=== PATIENT | male | born 1970 | race Caucasian/White ===

== ENCOUNTER 2018-06-02 19:50 | Inpatient (IN) | payer OTHER, MEDICAID ==
[~2018-06-02] VITALS: Ht 172.7 cm; Wt 85.4 kg
[2018-06-02] MEDS ORDERED: SODIUM CHLORIDE 0.9% 1000ML BAG (SEPSIS BOLUS) IV ONE (20:15)
[2018-06-02] MEDS ORDERED: IBUPROFEN 400MG TABLET PO ONE (20:15)
[2018-06-02] MEDS ORDERED: LORAZEPAM 2MG/ML CPJ IV ONE (20:15)
[2018-06-02 21:11] LABS: CHLORIDE 98 mEq/L (98-107); INR 2.1
[2018-06-02 21:14] LABS: ETHANOL BLOOD 67 mg/dL
[2018-06-02 21:19] LABS: BASOPHILS % 0.3 % (0.0-2.0); EOSINOPHILS % 0.3 % (0.0-5.0); HEMATOCRIT. 35.3 % (42.0-52.0); HEMOGLOBIN. 12.2 g/dL (14.0-18.0); LYMPHOCYTES % 3.2 % (20.0-50.0); MEAN CORPUSCULAR HEMOGLOBIN 35.8 pg (28.0-32.0); MEAN CORPUSCULAR VOLUME 103.2 fL (80.0-94.0); MEAN PLATELET VOLUME 8.8 fl (7.4-10.4); NEUTROPHILS % 88.2 % (40.0-76.0); RED BLOOD CELL COUNT 3.42 mill/uL (4.7-6.1); RED CELL DISTRIBUTION WIDTH 16.2 % (11.6-14.6)
[2018-06-02 21:26] LABS: PLATELET 13 x1000/uL (130-400)
[2018-06-02] MEDS ORDERED: VANCOMYCIN 1 G PREMIX 200 ML IV NR (21:30)
[2018-06-02] MEDS ORDERED: LEVOFLOXACIN 750MG PREMIX 150 ML IV NR (21:30)
[2018-06-02] MEDS ORDERED: PIPERACILLIN/TAZ 3.375G PREMIX 50 ML IV NR (21:30)
[2018-06-02] MEDS ORDERED: PANTOPRAZOLE SODIUM 40 MG/VIAL IV ONE (21:45)
[2018-06-02] MEDS ORDERED: PANTOPRAZOLE 80 MG in SODIUM CHLORIDE 0.9% 100 ML IV SCH (21:45)
[2018-06-02] MEDS ORDERED: SODIUM CHLORIDE 0.9% 1,000 ML IV ONE (21:53)
[2018-06-02] MEDS ORDERED: OCTREOTIDE 1,000 MCG in SODIUM CHLORIDE 0.9% 98 ML IV NR ×4 (22:15)
[2018-06-02] MEDS ORDERED: OCTREOTIDE ACETATE 50 MCG/ML 1ML SUBCUT NR (22:15)
[2018-06-02 23:00] LABS: CLARITY URINE TURBID (CLEAR); COLOR URINE DARK YELLOW (YELLOW); KETONES URINE NEGATIVE (NEGATIVE); LEUKOCYTE ESTERASE URINE 1+ (NEGATIVE); NITRITE URINE POSITIVE (NEGATIVE); OCCULT BLOOD URINE 3+ (NEGATIVE); PH URINE 5.5 (4.5-8.0); PROTEIN URINE 3+ (NEGATIVE); SPECIFIC GRAVITY URINE 1.026 (1.005-1.030)
[2018-06-02] MEDS: PANTOPRAZOLE 80 MG in SODIUM CHLORIDE 0.9% 100 ML IV NR (23:00)
[2018-06-03] VITALS (42 sets, daily range): BP systolic 81–163; BP diastolic 49–114
[2018-06-03] MEDS ORDERED: ONDANSETRON HCL 4MG/2ML INJ IV PRN
[2018-06-03] MEDS ORDERED: PIPERACILLIN/TAZ 3.375G PREMIX 50 ML IV SCH
[2018-06-03] MEDS ORDERED: MAGNESIUM/ALUMINUM HYDROXIDE/SIMETHICONE 30ML UDC PO PRN
[2018-06-03] MEDS ORDERED: CLONIDINE 0.1MG TABLET PO PRN
[2018-06-03 01:19] LABS: AMMONIA 19 uMol/L (<32)
[2018-06-03] MEDS: LORAZEPAM 2MG/ML CPJ IV PRN ×4 (01:39→21:00)
[2018-06-03] MEDS: SODIUM CHLORIDE 0.9% 1,000 ML IV SCH ×2 (01:56→22:56)
[2018-06-03] MEDS ORDERED: PHYTONADIONE 10 MG in DEXTROSE 5% WATER 50 ML IV NR (02:30)
[2018-06-03] MEDS ORDERED: MVI, ADULT NO.1 10 ML, FOLIC ACID 1 MG, THIAMINE HCL 100 MG in SODIUM CHLORIDE 0.9% 1,0... IV SCH ×4 (03:00)
[2018-06-03] MEDS: VANCOMYCIN 1 G PREMIX 200 ML IV SCH ×3 (05:39→20:51)
[2018-06-03] MEDS: PIPERACILLIN/TAZ 3.375G PREMIX 50 ML IV SCH ×3 (05:40→22:56)
[2018-06-03 05:44] LABS: HEMATOCRIT. 34.5 % (42.0-52.0); HEMOGLOBIN. 11.7 g/dL (14.0-18.0); MEAN CORPUSCULAR HEMOGLOBIN 35.3 pg (28.0-32.0); MEAN PLATELET VOLUME 9.7 fl (7.4-10.4); RED BLOOD CELL COUNT 3.31 mill/uL (4.7-6.1); RED CELL DISTRIBUTION WIDTH 16.7 % (11.6-14.6)
[2018-06-03 05:52] LABS: PLATELET 8 x1000/uL (130-400)
[2018-06-03 05:53] LABS: CHLORIDE 103 mEq/L (98-107)
[2018-06-03 06:08] LABS: LDL CHOLESTEROL 43 mg/dL (5-100)
[2018-06-03 06:10] LABS: HDL CHOLESTEROL 11 mg/dL (40-59)
[2018-06-03 06:13] LABS: CREATINE KINASE MB FRACTION 6.7 ng/mL (0.5-3.6)
[2018-06-03 06:21] LABS: CREATINE KINASE 1852 IU/L (39-308)
[2018-06-03 07:41] LABS: PLATELET ESTIMATE MARKEDLY DECREASED
[2018-06-03] MEDS: CHLORDIAZEPOXIDE 25MG CAPSULE PO SCH ×3 (08:21→22:56)
[2018-06-03] MEDS: PANTOPRAZOLE 80 MG in SODIUM CHLORIDE 0.9% 100 ML IV NR (08:41)
[2018-06-03 11:06] LABS: AMMONIA 46 uMol/L (<32)
[2018-06-03 11:19] LABS: T4 FREE 0.85 ng/dL (0.76-1.46)
[2018-06-03 12:22] LABS: FOLIC ACID (FOLATE) SERUM >20 ng/mL ng/mL (>5.38)
[2018-06-03 12:43] LABS: VITAMIN B12 SERUM > 2000.0 pg/mL (211-911)
[2018-06-03] MEDS ORDERED: KCL 20MEQ/100ML PREMIX 100 ML IV NR (13:00)
[2018-06-03 13:42] LABS: FERRITIN 495 ng/mL (22-322)
[2018-06-03 13:53] LABS: HEPATITIS B SURFACE ANTIGEN NEGATIVE
[2018-06-03 14:19] LABS: HEPATITIS B CORE AB IGM NEGATIVE
[2018-06-03 14:21] LABS: *AMPHETAMINES SCREEN URINE NEGATIVE (NEGATIVE); *BARBITURATES SCREEN URINE NEGATIVE (NEGATIVE); *BENZODIAZEPINES SCREEN URINE NEGATIVE (NEGATIVE); *COCAINE SCREEN URINE NEGATIVE (NEGATIVE); METHADONE URINE SCREEN NEGATIVE (NEGATIVE)
[2018-06-03 14:21] LABS: HEPATITIS A AB IGM NEGATIVE (NEGATIVE)
[2018-06-03 14:22] LABS: CANNABINOID URINE SCREEN NEGATIVE (NEGATIVE); OPIATES URINE SCREEN PRESUMTIVE POSITIVE (NEGATIVE); PHENCYCLIDINE URINE SCREEN NEGATIVE (NEGATIVE)
[2018-06-03 16:42] LABS: HEMATOCRIT 34.8 % (42.0-52.0); HEMOGLOBIN 11.8 g/dL (14.0-18.0)
[2018-06-03 16:55] LABS: CREATINE KINASE MB FRACTION 6.8 ng/mL (0.5-3.6)
[2018-06-03] MEDS: AMIKACIN 500MG in SODIUM CHLORIDE 0.9% 100ML IV SCH (17:44)
[2018-06-03] MEDS: PANTOPRAZOLE 80 MG in SODIUM CHLORIDE 0.9% 100 ML IV SCH (20:51)
[2018-06-03 23:22] LABS: HEMATOCRIT 33.6 % (42.0-52.0); HEMOGLOBIN 11.5 g/dL (14.0-18.0)
[2018-06-03] MEDS: OCTREOTIDE 1,000 MCG in SODIUM CHLORIDE 0.9% 100 ML IV PRN (23:51)
[2018-06-04] VITALS (40 sets, daily range): BP systolic 83–140; BP diastolic 35–95
[2018-06-04] MEDS: AMIKACIN 500MG in SODIUM CHLORIDE 0.9% 100ML IV SCH (01:13)
[2018-06-04] MEDS: LORAZEPAM 2MG/ML CPJ IV PRN ×2 (01:26→06:44)
[2018-06-04] MEDS: VANCOMYCIN 1 G PREMIX 200 ML IV SCH (03:56)
[2018-06-04] MEDS: PIPERACILLIN/TAZ 3.375G PREMIX 50 ML IV SCH ×3 (05:03→21:45)
[2018-06-04] MEDS: CHLORDIAZEPOXIDE 25MG CAPSULE PO SCH ×3 (05:03→21:46)
[2018-06-04 05:53] LABS: HEMOGLOBIN. 11.4 g/dL (14.0-18.0); MEAN CORPUSCULAR HEMOGLOBIN 35.9 pg (28.0-32.0); MEAN CORPUSCULAR VOLUME 104.1 fL (80.0-94.0); RED BLOOD CELL COUNT 3.17 mill/uL (4.7-6.1); RED CELL DISTRIBUTION WIDTH 16.4 % (11.6-14.6)
[2018-06-04 06:09] LABS: CHLORIDE 107 mEq/L (98-107)
[2018-06-04 06:18] LABS: CREATINE KINASE 709 IU/L (39-308)
[2018-06-04 06:21] LABS: CREATINE KINASE MB FRACTION 4.3 ng/mL (0.5-3.6)
[2018-06-04 06:33] LABS: PLATELET 9 x1000/uL (130-400)
[2018-06-04] MEDS: SODIUM CHLORIDE 0.9% 1,000 ML IV SCH (06:45)
[2018-06-04] MEDS: PANTOPRAZOLE 80 MG in SODIUM CHLORIDE 0.9% 100 ML IV SCH ×2 (06:47→16:30)
[2018-06-04 08:14] LABS: HIV SCREEN 4G Non Reactive (Non Reactive)
[2018-06-04 08:58] LABS: PLATELET ESTIMATE MARKEDLY DECREASED
[2018-06-04 09:43] LABS: AMMONIA 41 uMol/L (<32)
[2018-06-04] MEDS: FOLIC ACID 1MG TABLET PO SCH (10:04)
[2018-06-04] MEDS: THIAMINE HCL 100MG TABLET PO SCH (10:04)
[2018-06-04] MEDS: MULTIVITAMINS,THER W-MINERALS TABLET PO SCH (10:04)
[2018-06-04 12:25] LABS: HEMATOCRIT 31.8 % (42.0-52.0); MEAN CORPUSCULAR HEMOGLOBIN 35.7 pg (28.0-32.0); RED BLOOD CELL COUNT 3.09 mill/uL (4.7-6.1)
[2018-06-04 12:32] LABS: PLATELET 8 x1000/uL (130-400)
[2018-06-04] MEDS: PROPRANOLOL HCL 10MG TABLET PO SCH ×2 (14:29→21:45)
[2018-06-04] MEDS ORDERED: AMIKACIN SULFATE 600 MG in SODIUM CHLORIDE 0.9% 100 ML IV SCH (18:00)
[2018-06-04 19:15] LABS: HEMATOCRIT 32.7 % (42.0-52.0); MEAN CORPUSCULAR HEMOGLOBIN 35.8 pg (28.0-32.0); MEAN CORPUSCULAR VOLUME 106.5 fL (80.0-94.0); RED BLOOD CELL COUNT 3.07 mill/uL (4.7-6.1); RED CELL DISTRIBUTION WIDTH 16.3 % (11.6-14.6)
[2018-06-04 20:07] LABS: PLATELET 31 x1000/uL (130-400)
[2018-06-05] VITALS (69 sets, daily range): BP systolic 72–136; BP diastolic 40–77
[2018-06-05] MEDS: SODIUM CHLORIDE 0.9% 1,000 ML IV SCH ×2 (00:31→13:58)
[2018-06-05] MEDS: PANTOPRAZOLE 80 MG in SODIUM CHLORIDE 0.9% 100 ML IV SCH ×3 (00:32→23:33)
[2018-06-05 01:11] LABS: HEMATOCRIT 30.3 % (42.0-52.0); HEMOGLOBIN 10.4 g/dL (14.0-18.0); MEAN CORPUSCULAR HEMOGLOBIN 35.8 pg (28.0-32.0); RED BLOOD CELL COUNT 2.91 mill/uL (4.7-6.1); RED CELL DISTRIBUTION WIDTH 16.2 % (11.6-14.6)
[2018-06-05 01:14] LABS: PLATELET 23 x1000/uL (130-400)
[2018-06-05] MEDS: LORAZEPAM 2MG/ML CPJ IV PRN ×2 (03:21→08:45)
[2018-06-05 05:28] LABS: HEMATOCRIT. 31.2 % (42.0-52.0); HEMOGLOBIN. 10.7 g/dL (14.0-18.0); MEAN CORPUSCULAR HEMOGLOBIN 35.7 pg (28.0-32.0); MEAN PLATELET VOLUME 8.7 fl (7.4-10.4); RED CELL DISTRIBUTION WIDTH 16.1 % (11.6-14.6)
[2018-06-05 05:35] LABS: PARTIAL THROMBOPLASTIN TIME 42.2 sec (23.4-31.0)
[2018-06-05 05:37] LABS: AMMONIA 18 uMol/L (<32)
[2018-06-05] MEDS: PIPERACILLIN/TAZ 3.375G PREMIX 50 ML IV SCH (05:43)
[2018-06-05] MEDS: CHLORDIAZEPOXIDE 25MG CAPSULE PO SCH ×3 (05:43→22:00)
[2018-06-05] MEDS: PROPRANOLOL HCL 10MG TABLET PO SCH ×2 (05:43→14:00)
[2018-06-05 08:12] LABS: PLATELET 19 x1000/uL (130-400)
[2018-06-05 08:18] LABS: PLATELET ESTIMATE MARKEDLY DECREASED
[2018-06-05] MEDS: MULTIVITAMINS,THER W-MINERALS TABLET PO SCH (08:44)
[2018-06-05] MEDS: FOLIC ACID 1MG TABLET PO SCH (08:45)
[2018-06-05] MEDS: THIAMINE HCL 100MG TABLET PO SCH (08:45)
[2018-06-05] MEDS ORDERED: SODIUM CHLORIDE 0.9% 1000ML BAG (SEPSIS BOLUS) IV ONE (09:30)
[2018-06-05] MEDS ORDERED: SODIUM CHLORIDE 0.9% 500 ML IV NR (10:00)
[2018-06-05 10:34] LABS: BG BASE EXCESS -3.7 mmol/L (-2.0-2.0); BG CARBOXYHEMOGLOBIN 0.7 % (0.5-1.5); BG DEOXYHEMOGLOBIN 8.2 % (0.0-5.0); BG FRACTION INSPIRED OXYGEN 34; BG HCO3 ACT 19.3 mmol/L (22.0-26.0); BG METHEMOGLOBIN 0.2 % (0.0-1.5); BG OXYGEN SATURATION 91.7 % (92.0-98.5); BG OXYHEMOGLOBIN 90.9 % (94.0-97.0); BG PCO2 28.9 mmHg (35.0-45.0); BG PH 7.443 (7.350-7.450); BG PO2 60.9 mmHg (75.0-100.0); BG SAMPLE SITE RIGHT RADIAL; BG TOTAL HEMOGLOBIN 11.4 g/dL (12.0-18.0); BG VENT MODE NASAL CANNULA
[2018-06-05] MEDS ORDERED: MAGNESIUM 2 G PREMIX 50 ML IV NR (11:00)
[2018-06-05] MEDS: CEFAZOLIN 2,000 MG in DEXT 5% WATER 100 ML IV SCH ×2 (11:09→19:51)
[2018-06-05] MEDS ORDERED: AMIKACIN SULFATE 750 MG in SODIUM CHLORIDE 0.9% 100 ML IV SCH (12:00)
[2018-06-05] MEDS ORDERED: PHENYLEPHRINE 40 MG in DEXT 5% WATER 246 ML IV PRN ×2 (13:45→14:00)
[2018-06-05] MEDS ORDERED: ALBUMIN HUMAN 25GM/100ML (25%) IV NR (14:00)
[2018-06-05] MEDS ORDERED: FUROSEMIDE 100MG/10ML VIAL IVP NR (14:00)
[2018-06-05] MEDS: OCTREOTIDE 1,000 MCG in SODIUM CHLORIDE 0.9% 100 ML IV PRN (14:25)
[2018-06-05 15:50] LABS: HEMATOCRIT 33.3 % (42.0-52.0); HEMOGLOBIN 11.2 g/dL (14.0-18.0); MEAN CORPUSCULAR HEMOGLOBIN 35.1 pg (28.0-32.0); MEAN CORPUSCULAR VOLUME 104.5 fL (80.0-94.0); RED BLOOD CELL COUNT 3.18 mill/uL (4.7-6.1); RED CELL DISTRIBUTION WIDTH 16.4 % (11.6-14.6)
[2018-06-05 16:18] LABS: PLATELET 23 x1000/uL (130-400)
[2018-06-05 23:25] LABS: HEMATOCRIT 33.1 % (42.0-52.0); HEMOGLOBIN 11.2 g/dL (14.0-18.0); MEAN CORPUSCULAR HEMOGLOBIN 35.4 pg (28.0-32.0); MEAN CORPUSCULAR VOLUME 104.1 fL (80.0-94.0); RED BLOOD CELL COUNT 3.18 mill/uL (4.7-6.1); RED CELL DISTRIBUTION WIDTH 16.7 % (11.6-14.6)
[2018-06-05 23:47] LABS: PLATELET 17 x1000/uL (130-400)
[2018-06-06] VITALS (70 sets, daily range): BP systolic 61–151; BP diastolic 20–96
[2018-06-06] MEDS: CEFAZOLIN 2,000 MG in DEXT 5% WATER 100 ML IV SCH ×2 (03:00→10:20)
[2018-06-06 05:36] LABS: HEMATOCRIT. 30.4 % (42.0-52.0); HEMOGLOBIN. 10.4 g/dL (14.0-18.0); MEAN CORPUSCULAR VOLUME 104.8 fL (80.0-94.0); RED CELL DISTRIBUTION WIDTH 16.7 % (11.6-14.6)
[2018-06-06 05:51] LABS: AMMONIA 49 uMol/L (<32)
[2018-06-06 05:52] LABS: CHLORIDE 110 mEq/L (98-107)
[2018-06-06 05:54] LABS: PLATELET 27 x1000/uL (130-400)
[2018-06-06] MEDS: CHLORDIAZEPOXIDE 25MG CAPSULE PO SCH (06:00)
[2018-06-06 06:02] LABS: CREATINE KINASE 70 IU/L (39-308)
[2018-06-06 07:58] LABS: BG BASE EXCESS -4.1 mmol/L (-2.0-2.0); BG CARBOXYHEMOGLOBIN 0.4 % (0.5-1.5); BG FRACTION INSPIRED OXYGEN 40; BG HCO3 ACT 20.4 mmol/L (22.0-26.0); BG METHEMOGLOBIN 0.3 % (0.0-1.5); BG OXYHEMOGLOBIN 96.3 % (94.0-97.0); BG PCO2 35.1 mmHg (35.0-45.0); BG PH 7.382 (7.350-7.450); BG PO2 106.7 mmHg (75.0-100.0); BG SAMPLE SITE RIGHT RADIAL; BG TOTAL HEMOGLOBIN 10.2 g/dL (12.0-18.0); BG VENT MODE NASAL CANNULA
[2018-06-06 09:24] LABS: PLATELET ESTIMATE MARKEDLY DECREASED
[2018-06-06] MEDS ORDERED: CEFEPIME 2,000 MG in DEXT 5% WATER 100 ML IV SCH (12:00)
[2018-06-06] MEDS: PANTOPRAZOLE 80 MG in SODIUM CHLORIDE 0.9% 100 ML IV SCH ×2 (12:17→21:47)
[2018-06-06] MEDS ORDERED: [UNRECOGNIZED DRUG - REMARK] IV SCH ×4 (13:00)
[2018-06-06] MEDS ORDERED: LIDOCAINE HCL 1% 10 MG/ML 10ML VIAL ONE (14:27)
[2018-06-06] MEDS ORDERED: LACTULOSE 20G/30ML UDC PO SCH (14:30)
[2018-06-06] MEDS: METRONIDAZOLE 500 MG PREMIX 100 ML IV SCH (15:15)
[2018-06-06] MEDS: CEFEPIME 1,000 MG in DEXTROSE 5% WATER 50 ML IV SCH (16:22)
[2018-06-06 23:09] LABS: HEMATOCRIT 31.4 % (42.0-52.0); HEMOGLOBIN 10.7 g/dL (14.0-18.0); MEAN CORPUSCULAR HEMOGLOBIN 35.6 pg (28.0-32.0); MEAN CORPUSCULAR VOLUME 104.2 fL (80.0-94.0); RED BLOOD CELL COUNT 3.01 mill/uL (4.7-6.1); RED CELL DISTRIBUTION WIDTH 16.2 % (11.6-14.6)
[2018-06-06 23:13] LABS: PLATELET 16 x1000/uL (130-400)
[2018-06-07] VITALS (63 sets, daily range): BP systolic 60–155; BP diastolic 48–112
[2018-06-07] MEDS: IPRATROPIUM BROMIDE (0.02%) 0.5MG/2.5ML NEB HHN SCH ×4 (02:14→19:55)
[2018-06-07] MEDS: METRONIDAZOLE 500 MG PREMIX 100 ML IV SCH ×2 (03:10→14:33)
[2018-06-07] MEDS: CEFEPIME 1,000 MG in DEXTROSE 5% WATER 50 ML IV SCH ×2 (03:10→15:21)
[2018-06-07] MEDS: PANTOPRAZOLE 80 MG in SODIUM CHLORIDE 0.9% 100 ML IV SCH ×2 (03:49→16:11)
[2018-06-07 05:32] LABS: BASOPHILS % 0.4 % (0.0-2.0); HEMATOCRIT. 32.4 % (42.0-52.0); HEMOGLOBIN. 11.1 g/dL (14.0-18.0); LYMPHOCYTES % 5.3 % (20.0-50.0); MEAN CORPUSCULAR HEMOGLOBIN 35.5 pg (28.0-32.0); MEAN CORPUSCULAR VOLUME 103.9 fL (80.0-94.0); MEAN PLATELET VOLUME 9.6 fl (7.4-10.4); NEUTROPHILS % 72.3 % (40.0-76.0); RED BLOOD CELL COUNT 3.11 mill/uL (4.7-6.1); RED CELL DISTRIBUTION WIDTH 16.1 % (11.6-14.6)
[2018-06-07 05:56] LABS: AMMONIA 19 uMol/L (<32)
[2018-06-07 06:04] LABS: PLATELET 15 x1000/uL (130-400)
[2018-06-07 06:11] LABS: PHOSPHORUS 2.3 mg/dL (2.5-4.9)
[2018-06-07] MEDS: OCTREOTIDE 1,000 MCG in SODIUM CHLORIDE 0.9% 100 ML IV PRN (16:11)
[2018-06-07 19:11] LABS: HEMATOCRIT. 30.4 % (42.0-52.0); HEMOGLOBIN. 10.5 g/dL (14.0-18.0); MEAN CORPUSCULAR HEMOGLOBIN 35.8 pg (28.0-32.0); MEAN CORPUSCULAR VOLUME 103.3 fL (80.0-94.0); MEAN PLATELET VOLUME 8.3 fl (7.4-10.4); RED BLOOD CELL COUNT 2.94 mill/uL (4.7-6.1); RED CELL DISTRIBUTION WIDTH 15.9 % (11.6-14.6)
[2018-06-07 19:13] LABS: PLATELET 42 x1000/uL (130-400)
[2018-06-07 19:15] LABS: INR 2.1; PROTHROMBIN TIME 21.2 sec (9.1-11.1)
[2018-06-07 19:36] LABS: PLATELET ESTIMATE MARKEDLY DECREASED
[2018-06-07] MEDS: DEXT 5%/0.9% NACL KCL 20MEQ/L 1,000 ML IV SCH (22:14)
[2018-06-08] VITALS (47 sets, daily range): BP systolic 110–163; BP diastolic 44–133
[2018-06-08] MEDS: METRONIDAZOLE 500 MG PREMIX 100 ML IV SCH ×2 (00:37→14:42)
[2018-06-08] MEDS: IPRATROPIUM BROMIDE (0.02%) 0.5MG/2.5ML NEB HHN SCH ×3 (01:08→13:45)
[2018-06-08] MEDS: CEFEPIME 1,000 MG in DEXTROSE 5% WATER 50 ML IV SCH ×2 (01:48→14:43)
[2018-06-08] MEDS: PANTOPRAZOLE 80 MG in SODIUM CHLORIDE 0.9% 100 ML IV SCH ×2 (01:48→11:21)
[2018-06-08 05:46] LABS: HEMATOCRIT. 31.7 % (42.0-52.0); HEMOGLOBIN. 10.9 g/dL (14.0-18.0); MEAN CORPUSCULAR HEMOGLOBIN 35.7 pg (28.0-32.0); MEAN CORPUSCULAR VOLUME 104.1 fL (80.0-94.0); RED BLOOD CELL COUNT 3.04 mill/uL (4.7-6.1)
[2018-06-08 06:01] LABS: CHLORIDE 108 mEq/L (98-107)
[2018-06-08 06:09] LABS: PHOSPHORUS 2.4 mg/dL (2.5-4.9)
[2018-06-08 06:12] LABS: AMMONIA 27 uMol/L (<32); CREATINE KINASE 40 IU/L (39-308)
[2018-06-08 07:01] LABS: PLATELET 34 x1000/uL (130-400)
[2018-06-08 09:09] LABS: PLATELET ESTIMATE MARKEDLY DECREASED
[2018-06-08] MEDS: [UNRECOGNIZED DRUG - REMARK] IV SCH ×4 (09:13)
[2018-06-08] MEDS ORDERED: SODIUM PHOS,M-BASIC-D-BASIC 15 MM in DEXT 5% WATER 245 ML IV SCH (09:30)
[2018-06-08 09:40] LABS: AMMONIA < 10 uMol/L (<32)
[2018-06-08] MEDS: DEXT 5%/0.9% NACL KCL 20MEQ/L 1,000 ML IV SCH (14:44)
[2018-06-08] MEDS: AZITHROMYCIN 500 MG in DEXT 5% WATER 250 ML IV SCH (19:30)
[2018-06-08] MEDS: IPRATROPIUM/ALBUTEROL 0.5-3(2.5)MG/3ML NEB INH PRN (20:03)
[2018-06-09] VITALS (60 sets, daily range): BP systolic 82–189; BP diastolic 28–133
[2018-06-09] MEDS: METRONIDAZOLE 500 MG PREMIX 100 ML IV SCH ×2 (00:35→14:33)
[2018-06-09] MEDS: IPRATROPIUM BROMIDE (0.02%) 0.5MG/2.5ML NEB HHN SCH ×4 (01:53→21:38)
[2018-06-09] MEDS: CEFEPIME 1,000 MG in DEXTROSE 5% WATER 50 ML IV SCH ×2 (02:34→14:33)
[2018-06-09 04:59] LABS: HEMATOCRIT. 31.3 % (42.0-52.0); HEMOGLOBIN. 10.6 g/dL (14.0-18.0); MEAN CORPUSCULAR HEMOGLOBIN 35.5 pg (28.0-32.0); MEAN CORPUSCULAR VOLUME 104.8 fL (80.0-94.0); MEAN PLATELET VOLUME 10.2 fl (7.4-10.4); RED BLOOD CELL COUNT 2.98 mill/uL (4.7-6.1); RED CELL DISTRIBUTION WIDTH 15.6 % (11.6-14.6)
[2018-06-09 05:17] LABS: PLATELET 25 x1000/uL (130-400)
[2018-06-09 05:20] LABS: PHOSPHORUS 3.1 mg/dL (2.5-4.9)
[2018-06-09 05:23] LABS: AMMONIA 11 uMol/L (<32)
[2018-06-09 07:42] LABS: PLATELET ESTIMATE MARKEDLY DECREASED
[2018-06-09] MEDS: IPRATROPIUM/ALBUTEROL 0.5-3(2.5)MG/3ML NEB INH PRN (08:27)
[2018-06-09] MEDS: PANTOPRAZOLE SODIUM 40 MG/VIAL IV SCH (08:28)
[2018-06-09] MEDS: DEXT 5%/0.9% NACL 1,000 ML IV SCH (08:29)
[2018-06-09] MEDS: [UNRECOGNIZED DRUG - REMARK] IV SCH ×4 (10:12)
[2018-06-09] MEDS ORDERED: ALBUMIN HUMAN 25GM/100ML (25%) IV NR (11:30)
[2018-06-09 19:03] LABS: HEMATOCRIT. 27.9 % (42.0-52.0); HEMOGLOBIN. 9.6 g/dL (14.0-18.0); MEAN CORPUSCULAR HEMOGLOBIN 35.8 pg (28.0-32.0); MEAN PLATELET VOLUME 8.7 fl (7.4-10.4); RED BLOOD CELL COUNT 2.68 mill/uL (4.7-6.1); RED CELL DISTRIBUTION WIDTH 15.7 % (11.6-14.6)
[2018-06-09 19:12] LABS: PLATELET 18 x1000/uL (130-400)
[2018-06-09 19:32] LABS: PLATELET ESTIMATE MARKEDLY DECREASED
[2018-06-09] MEDS: HYDROMORPHONE HCL/PF 2MG/ML CPJ IV PRN ×2 (20:20→23:05)
[2018-06-09] MEDS: AZITHROMYCIN 500 MG in DEXT 5% WATER 250 ML IV SCH (20:25)
[2018-06-09] MEDS ORDERED: ALBUTEROL (0.083%) 2.5MG/3ML NEB ONE (21:08)
[2018-06-10] VITALS (11 sets, daily range): BP systolic 101–133; BP diastolic 66–85
[2018-06-10] MEDS: METRONIDAZOLE 500 MG PREMIX 100 ML IV SCH (01:21)
[2018-06-10] MEDS: HYDROMORPHONE HCL/PF 2MG/ML CPJ IV PRN ×3 (01:23→06:21)
[2018-06-10] MEDS: CEFEPIME 1,000 MG in DEXTROSE 5% WATER 50 ML IV SCH (02:17)
[2018-06-10] MEDS: DEXT 5%/0.9% NACL 1,000 ML IV SCH (02:36)
[2018-06-10] MEDS: IPRATROPIUM BROMIDE (0.02%) 0.5MG/2.5ML NEB HHN SCH ×3 (02:43→20:42)
[2018-06-10 06:24] LABS: AMMONIA 14 uMol/L (<32)
[2018-06-10 06:30] LABS: HEMATOCRIT. 31.1 % (42.0-52.0); HEMOGLOBIN. 10.7 g/dL (14.0-18.0); MEAN CORPUSCULAR HEMOGLOBIN 36.4 pg (28.0-32.0); MEAN CORPUSCULAR VOLUME 105.5 fL (80.0-94.0); MEAN PLATELET VOLUME 9.8 fl (7.4-10.4); RED BLOOD CELL COUNT 2.94 mill/uL (4.7-6.1); RED CELL DISTRIBUTION WIDTH 15.7 % (11.6-14.6)
[2018-06-10 06:37] LABS: CHLORIDE 108 mEq/L (98-107)
[2018-06-10 06:48] LABS: PHOSPHORUS 3.2 mg/dL (2.5-4.9)
[2018-06-10 07:19] LABS: PLATELET 22 x1000/uL (130-400)
[2018-06-10] MEDS: PANTOPRAZOLE SODIUM 40 MG/VIAL IV SCH (09:03)
[2018-06-10 09:33] LABS: HEMATOCRIT. 31.1 % (42.0-52.0); HEMOGLOBIN. 10.6 g/dL (14.0-18.0); MEAN CORPUSCULAR HEMOGLOBIN 36.3 pg (28.0-32.0); MEAN CORPUSCULAR VOLUME 105.9 fL (80.0-94.0); MEAN PLATELET VOLUME 9.5 fl (7.4-10.4); RED BLOOD CELL COUNT 2.93 mill/uL (4.7-6.1); RED CELL DISTRIBUTION WIDTH 15.8 % (11.6-14.6)
[2018-06-10 09:37] LABS: PLATELET 28 x1000/uL (130-400)
[2018-06-10 09:43] LABS: CHLORIDE 107 mEq/L (98-107)
[2018-06-10 09:49] LABS: AMMONIA 20 uMol/L (<32)
[2018-06-10 10:06] LABS: PLATELET ESTIMATE MARKEDLY DECREASED
[2018-06-10 10:12] LABS: PLATELET ESTIMATE MARKEDLY DECREASED
[2018-06-10] MEDS: MEROPENEM 500 MG in SODIUM CHLORIDE 0.9% 50 ML IV SCH (16:05)
[2018-06-10 17:10] LABS: HEMATOCRIT. 26.8 % (42.0-52.0); HEMOGLOBIN. 9.3 g/dL (14.0-18.0); MEAN CORPUSCULAR HEMOGLOBIN 36.6 pg (28.0-32.0); MEAN CORPUSCULAR VOLUME 105.8 fL (80.0-94.0); MEAN PLATELET VOLUME 9.1 fl (7.4-10.4); RED BLOOD CELL COUNT 2.53 mill/uL (4.7-6.1); RED CELL DISTRIBUTION WIDTH 15.8 % (11.6-14.6)
[2018-06-10 17:20] LABS: PLATELET 22 x1000/uL (130-400)
[2018-06-10 17:44] LABS: PLATELET ESTIMATE MARKEDLY DECREASED
[2018-06-10] MEDS: AZITHROMYCIN 500 MG in DEXT 5% WATER 250 ML IV SCH (20:41)
[2018-06-10 22:59] LABS: INR 2.8; PROTHROMBIN TIME 27.4 sec (9.1-11.1)
[2018-06-11] VITALS (12 sets, daily range): BP systolic 96–146; BP diastolic 52–86
[2018-06-11] MEDS: IPRATROPIUM BROMIDE (0.02%) 0.5MG/2.5ML NEB HHN SCH ×4 (01:07→20:42)
[2018-06-11] MEDS: MEROPENEM 500 MG in SODIUM CHLORIDE 0.9% 50 ML IV SCH ×2 (02:20→14:53)
[2018-06-11] MEDS: PANTOPRAZOLE SODIUM 40 MG/VIAL IV SCH (09:28)
[2018-06-11] MEDS: FOLIC ACID/VITAMIN B COMP W-C TABLET PO SCH (09:28)
[2018-06-11 11:41] LABS: HEMATOCRIT. 28.1 % (42.0-52.0); HEMOGLOBIN. 9.8 g/dL (14.0-18.0); MEAN CORPUSCULAR HEMOGLOBIN 36.5 pg (28.0-32.0); MEAN CORPUSCULAR VOLUME 105.3 fL (80.0-94.0); MEAN PLATELET VOLUME 10.4 fl (7.4-10.4); RED BLOOD CELL COUNT 2.67 mill/uL (4.7-6.1); RED CELL DISTRIBUTION WIDTH 16.1 % (11.6-14.6)
[2018-06-11 11:50] LABS: AMMONIA 18 uMol/L (<32)
[2018-06-11 12:16] LABS: PLATELET 33 x1000/uL (130-400)
[2018-06-11 12:26] LABS: CHLORIDE 107 mEq/L (98-107); PLATELET ESTIMATE MARKEDLY DECREASED
[2018-06-11] MEDS ORDERED: PHYTONADIONE 10MG/ML AMP SUBCUT NR (16:45)
[2018-06-11 17:52] LABS: HEMATOCRIT. 28.3 % (42.0-52.0); MEAN CORPUSCULAR HEMOGLOBIN 36.9 pg (28.0-32.0); MEAN PLATELET VOLUME 10.3 fl (7.4-10.4)
[2018-06-11 17:59] LABS: PLATELET 34 x1000/uL (130-400)
[2018-06-11 20:40] LABS: PLATELET ESTIMATE MARKEDLY DECREASED
[2018-06-11] MEDS: AZITHROMYCIN 500 MG in DEXT 5% WATER 250 ML IV SCH (20:59)
[2018-06-11] MEDS: PROPRANOLOL HCL 10MG TABLET PO SCH (21:00)
[2018-06-12] VITALS (12 sets, daily range): BP systolic 98–141; BP diastolic 56–88
[2018-06-12] MEDS: IPRATROPIUM BROMIDE (0.02%) 0.5MG/2.5ML NEB HHN SCH ×4 (01:09→22:02)
[2018-06-12] MEDS: MEROPENEM 500 MG in SODIUM CHLORIDE 0.9% 50 ML IV SCH ×2 (02:39→15:18)
[2018-06-12 07:57] LABS: INR 2.8; PROTHROMBIN TIME 27.9 sec (9.1-11.1)
[2018-06-12 07:59] LABS: HEMATOCRIT. 28.2 % (42.0-52.0); MEAN CORPUSCULAR HEMOGLOBIN 37.5 pg (28.0-32.0); MEAN CORPUSCULAR VOLUME 106.2 fL (80.0-94.0); RED BLOOD CELL COUNT 2.66 mill/uL (4.7-6.1)
[2018-06-12 08:59] LABS: CHLORIDE 110 mEq/L (98-107)
[2018-06-12 09:11] LABS: PHOSPHORUS 3.7 mg/dL (2.5-4.9)
[2018-06-12] MEDS: PROPRANOLOL HCL 10MG TABLET PO SCH ×2 (09:46→20:12)
[2018-06-12] MEDS: FOLIC ACID/VITAMIN B COMP W-C TABLET PO SCH (09:46)
[2018-06-12] MEDS: PANTOPRAZOLE SODIUM 40 MG/VIAL IV SCH (09:46)
[2018-06-12 11:02] LABS: PLATELET ESTIMATE MARKEDLY DECREASED
[2018-06-12 11:03] LABS: PLATELET 45 x1000/uL (130-400)
[2018-06-12 11:05] LABS: MEAN PLATELET VOLUME 9.3 fl (7.4-10.4)
[2018-06-12] MEDS ORDERED: CALCIUM GLUCONATE 1,000 MG in DEXT 5% WATER 90 ML IV NR (17:30)
[2018-06-12] MEDS: CALCITRIOL 1MCG/ML AMP IV SCH (20:10)
[2018-06-12] MEDS: AZITHROMYCIN 500 MG in DEXT 5% WATER 250 ML IV SCH (20:10)
[2018-06-13] VITALS (12 sets, daily range): BP systolic 92–130; BP diastolic 37–90
[2018-06-13 00:05] LABS: HEMATOCRIT. 27.9 % (42.0-52.0); HEMOGLOBIN. 9.6 g/dL (14.0-18.0); MEAN CORPUSCULAR HEMOGLOBIN 36.9 pg (28.0-32.0); MEAN CORPUSCULAR VOLUME 107.3 fL (80.0-94.0); MEAN PLATELET VOLUME 9.8 fl (7.4-10.4); RED CELL DISTRIBUTION WIDTH 16.3 % (11.6-14.6)
[2018-06-13 00:15] LABS: PLATELET 50 x1000/uL (130-400)
[2018-06-13] MEDS: MEROPENEM 500 MG in SODIUM CHLORIDE 0.9% 50 ML IV SCH ×2 (01:01→13:18)
[2018-06-13] MEDS: IPRATROPIUM BROMIDE (0.02%) 0.5MG/2.5ML NEB HHN SCH ×5 (03:34→21:18)
[2018-06-13 05:42] LABS: PHOSPHORUS 5.3 mg/dL (2.5-4.9)
[2018-06-13 06:16] LABS: HEMATOCRIT. 28.5 % (42.0-52.0); MEAN CORPUSCULAR HEMOGLOBIN 37.4 pg (28.0-32.0); MEAN CORPUSCULAR VOLUME 106.9 fL (80.0-94.0); MEAN PLATELET VOLUME 9.9 fl (7.4-10.4); PLATELET 57 x1000/uL (130-400); RED BLOOD CELL COUNT 2.67 mill/uL (4.7-6.1); RED CELL DISTRIBUTION WIDTH 16.2 % (11.6-14.6)
[2018-06-13 10:56] LABS: PLATELET ESTIMATE MARKEDLY DECREASED
[2018-06-13] MEDS: PROPRANOLOL HCL 10MG TABLET PO SCH ×2 (13:18→20:20)
[2018-06-13] MEDS: PANTOPRAZOLE SODIUM 40 MG/VIAL IV SCH (13:18)
[2018-06-13] MEDS: CALCITRIOL 1MCG/ML AMP IV SCH (13:18)
[2018-06-13] MEDS: FOLIC ACID/VITAMIN B COMP W-C TABLET PO SCH (13:18)
[2018-06-13 17:13] LABS: PLATELET ESTIMATE DECREASED
[2018-06-13] MEDS: AZITHROMYCIN 500 MG TABLET PO SCH (20:20)
[2018-06-14] VITALS (12 sets, daily range): BP systolic 93–116; BP diastolic 49–78
[2018-06-14] MEDS: IPRATROPIUM BROMIDE (0.02%) 0.5MG/2.5ML NEB HHN SCH ×4 (02:22→21:36)
[2018-06-14] MEDS: MEROPENEM 500 MG in SODIUM CHLORIDE 0.9% 50 ML IV SCH ×2 (02:43→14:32)
[2018-06-14 07:14] LABS: AMMONIA 18 uMol/L (<32)
[2018-06-14 07:31] LABS: HEMATOCRIT. 29.2 % (42.0-52.0); HEMOGLOBIN. 10.1 g/dL (14.0-18.0); MEAN CORPUSCULAR HEMOGLOBIN 37.5 pg (28.0-32.0); MEAN CORPUSCULAR VOLUME 108.5 fL (80.0-94.0); RED BLOOD CELL COUNT 2.69 mill/uL (4.7-6.1); RED CELL DISTRIBUTION WIDTH 16.4 % (11.6-14.6)
[2018-06-14 07:50] LABS: PHOSPHORUS 5.1 mg/dL (2.5-4.9)
[2018-06-14] MEDS: CALCITRIOL 1MCG/ML AMP IV SCH (08:47)
[2018-06-14] MEDS: PANTOPRAZOLE SODIUM 40 MG/VIAL IV SCH (08:47)
[2018-06-14] MEDS: FOLIC ACID/VITAMIN B COMP W-C TABLET PO SCH (08:47)
[2018-06-14] MEDS: PROPRANOLOL HCL 10MG TABLET PO SCH ×2 (08:48→19:53)
[2018-06-14 10:13] LABS: PLATELET 68 x1000/uL (130-400)
[2018-06-14 10:16] LABS: PLATELET ESTIMATE DECREASED
[2018-06-14] MEDS: DIPHENHYDRAMINE 50MG/ML VIAL IV PRN ×2 (15:19→23:39)
[2018-06-14] MEDS: AZITHROMYCIN 500 MG TABLET PO SCH (19:53)
[2018-06-15] VITALS (10 sets, daily range): BP systolic 94–132; BP diastolic 53–81
[2018-06-15] MEDS: IPRATROPIUM BROMIDE (0.02%) 0.5MG/2.5ML NEB HHN SCH ×3 (01:30→14:22)
[2018-06-15] MEDS: MEROPENEM 500 MG in SODIUM CHLORIDE 0.9% 50 ML IV SCH ×2 (01:56→16:17)
[2018-06-15 08:10] LABS: AMMONIA 18 uMol/L (<32)
[2018-06-15 08:18] LABS: HEMATOCRIT. 29.9 % (42.0-52.0); HEMOGLOBIN. 10.3 g/dL (14.0-18.0); MEAN CORPUSCULAR HEMOGLOBIN 37.4 pg (28.0-32.0); MEAN CORPUSCULAR VOLUME 108.6 fL (80.0-94.0); RED BLOOD CELL COUNT 2.75 mill/uL (4.7-6.1); RED CELL DISTRIBUTION WIDTH 16.2 % (11.6-14.6)
[2018-06-15 08:24] LABS: PHOSPHORUS 6.2 mg/dL (2.5-4.9)
[2018-06-15] MEDS: PANTOPRAZOLE SODIUM 40 MG/VIAL IV SCH (08:46)
[2018-06-15] MEDS: PROPRANOLOL HCL 10MG TABLET PO SCH ×2 (08:46→20:08)
[2018-06-15] MEDS: FOLIC ACID/VITAMIN B COMP W-C TABLET PO SCH (08:46)
[2018-06-15] MEDS: CALCITRIOL 1MCG/ML AMP IV SCH (08:53)
[2018-06-15] MEDS ORDERED: THROMBIN (BOVINE) 5000 UNITS/VIAL TOP ONE (08:54)
[2018-06-15] MEDS ORDERED: LIDOCAINE HCL/EPINEPHRINE 1%-EPI 1:100,000 20 ML VIAL ONE (08:54)
[2018-06-15] MEDS ORDERED: NORMAL SALINE 0.9% 10 ML SYR ONE (08:54)
[2018-06-15] MEDS ORDERED: BACITRACIN 50,000 UNITS/VIAL ONE (08:55)
[2018-06-15] MEDS ORDERED: GELATIN SPONGE,COMPRESSED SZ 100 ONE (08:55)
[2018-06-15 11:06] LABS: PLATELET 76 x1000/uL (130-400)
[2018-06-15 11:11] LABS: PLATELET ESTIMATE DECREASED
[2018-06-15] MEDS: AZITHROMYCIN 500 MG TABLET PO SCH (20:06)
[2018-06-16] VITALS: BP 93/56
[2018-06-16] MEDS: IPRATROPIUM BROMIDE (0.02%) 0.5MG/2.5ML NEB HHN SCH ×3 (01:03→21:28)
[2018-06-16] MEDS: MEROPENEM 500 MG in SODIUM CHLORIDE 0.9% 50 ML IV SCH ×2 (01:50→15:29)
[2018-06-16 04:00] VITALS: BP 94/41
[2018-06-16 07:17] LABS: AMMONIA < 10 uMol/L (<32)
[2018-06-16 07:41] LABS: HEMOGLOBIN. 9.8 g/dL (14.0-18.0); MEAN CORPUSCULAR HEMOGLOBIN 38.3 pg (28.0-32.0); RED BLOOD CELL COUNT 2.57 mill/uL (4.7-6.1); RED CELL DISTRIBUTION WIDTH 16.5 % (11.6-14.6)
[2018-06-16 07:46] LABS: CHLORIDE 111 mEq/L (98-107)
[2018-06-16 08:00] VITALS: BP 103/61
[2018-06-16 08:20] LABS: PHOSPHORUS 5.6 mg/dL (2.5-4.9)
[2018-06-16] MEDS: PROPRANOLOL HCL 10MG TABLET PO SCH ×2 (09:00→20:22)
[2018-06-16] MEDS: IPRATROPIUM/ALBUTEROL 0.5-3(2.5)MG/3ML NEB INH PRN ×2 (09:09→14:15)
[2018-06-16] MEDS: FOLIC ACID/VITAMIN B COMP W-C TABLET PO SCH (09:35)
[2018-06-16] MEDS: PANTOPRAZOLE SODIUM 40 MG/VIAL IV SCH (09:35)
[2018-06-16] MEDS: CALCITRIOL 1MCG/ML AMP IV SCH (10:39)
[2018-06-16 11:44] LABS: PLATELET 75 x1000/uL (130-400)
[2018-06-16 11:47] LABS: ATYPICAL LYMPHOCYTES 2
[2018-06-16 11:48] LABS: PLATELET ESTIMATE DECREASED
[2018-06-16 12:00] VITALS: BP 99/64
[2018-06-16] MEDS: CHLORDIAZEPOXIDE 25MG CAPSULE PO SCH ×2 (15:29→21:49)
[2018-06-16 16:00] VITALS: BP 107/62
[2018-06-16 19:37] VITALS: BP 101/54
[2018-06-17] VITALS: BP 95/59
[2018-06-17] MEDS: MEROPENEM 500 MG in SODIUM CHLORIDE 0.9% 50 ML IV SCH ×2 (01:15→14:42)
[2018-06-17] MEDS: IPRATROPIUM BROMIDE (0.02%) 0.5MG/2.5ML NEB HHN SCH ×3 (01:59→15:14)
[2018-06-17 04:06] VITALS: BP 101/59
[2018-06-17] MEDS: CHLORDIAZEPOXIDE 25MG CAPSULE PO SCH ×2 (05:31→14:42)
[2018-06-17 06:49] LABS: HEMATOCRIT. 26.4 % (42.0-52.0); HEMOGLOBIN. 9.2 g/dL (14.0-18.0); MEAN CORPUSCULAR HEMOGLOBIN 38.1 pg (28.0-32.0); MEAN CORPUSCULAR VOLUME 109.7 fL (80.0-94.0); RED BLOOD CELL COUNT 2.41 mill/uL (4.7-6.1); RED CELL DISTRIBUTION WIDTH 15.9 % (11.6-14.6)
[2018-06-17 07:01] LABS: INR 2.4; PARTIAL THROMBOPLASTIN TIME 46.2 sec (23.4-31.0); PROTHROMBIN TIME 23.7 sec (9.1-11.1)
[2018-06-17 07:44] LABS: AMMONIA < 10 uMol/L (<32)
[2018-06-17 08:00] VITALS: BP 87/71
[2018-06-17] MEDS: PROPRANOLOL HCL 10MG TABLET PO SCH ×2 (08:27→21:00)
[2018-06-17] MEDS: PANTOPRAZOLE SODIUM 40 MG/VIAL IV SCH (09:13)
[2018-06-17] MEDS: FOLIC ACID/VITAMIN B COMP W-C TABLET PO SCH (09:13)
[2018-06-17] MEDS: CALCITRIOL 1MCG/ML AMP IV SCH (09:14)
[2018-06-17 09:15] LABS: CHLORIDE 111 mEq/L (98-107)
[2018-06-17 09:21] LABS: PHOSPHORUS 6.8 mg/dL (2.5-4.9)
[2018-06-17] MEDS: LORAZEPAM 2MG/ML CPJ IV PRN ×2 (09:51→21:50)
[2018-06-17 10:36] LABS: PLATELET 91 x1000/uL (130-400)
[2018-06-17 10:39] LABS: PLATELET ESTIMATE DECREASED
[2018-06-17 12:00] VITALS: BP 121/67
[2018-06-17] MEDS ORDERED: PHYTONADIONE 10MG/ML AMP SUBCUT NR (15:45)
[2018-06-17 16:00] VITALS: BP 112/70
[2018-06-18] VITALS (11 sets, daily range): BP systolic 107–136; BP diastolic 58–79
[2018-06-18] MEDS: IPRATROPIUM BROMIDE (0.02%) 0.5MG/2.5ML NEB HHN SCH ×4 (03:30→21:37)
[2018-06-18] MEDS ORDERED: PHYTONADIONE 10MG/ML AMP SUBCUT NR (05:00)
[2018-06-18 05:55] LABS: INR 1.9; PARTIAL THROMBOPLASTIN TIME 43.7 sec (23.4-31.0); PROTHROMBIN TIME 18.5 sec (9.1-11.1)
[2018-06-18 06:11] LABS: BASOPHILS % 0.7 % (0.0-2.0); EOSINOPHILS % 2.1 % (0.0-5.0); HEMATOCRIT. 23.6 % (42.0-52.0); HEMOGLOBIN. 8.3 g/dL (14.0-18.0); LYMPHOCYTES % 7.4 % (20.0-50.0); MEAN CORPUSCULAR HEMOGLOBIN 38.4 pg (28.0-32.0); MEAN CORPUSCULAR VOLUME 109.8 fL (80.0-94.0); MEAN PLATELET VOLUME 8.9 fl (7.4-10.4); MONOCYTES % 12.9 % (2.0-8.0); NEUTROPHILS % 76.9 % (40.0-76.0); PLATELET 73 x1000/uL (130-400); RED BLOOD CELL COUNT 2.15 mill/uL (4.7-6.1)
[2018-06-18 06:32] LABS: PHOSPHORUS 7.9 mg/dL (2.5-4.9)
[2018-06-18] MEDS: FOLIC ACID/VITAMIN B COMP W-C TABLET PO SCH (09:00)
[2018-06-18] MEDS: PANTOPRAZOLE SODIUM 40 MG/VIAL IV SCH (09:00)
[2018-06-18] MEDS: CALCITRIOL 1MCG/ML AMP IV SCH (09:00)
[2018-06-18] MEDS: PROPRANOLOL HCL 10MG TABLET PO SCH ×2 (09:00→21:00)
[2018-06-18] MEDS: CALCIUM ACETATE 667MG CAPSULE PO SCH ×2 (12:50→17:26)
[2018-06-18] MEDS ORDERED: PHYTONADIONE 10MG/ML AMP SUBCUT SCH (18:00)
[2018-06-18] MEDS: LORAZEPAM 2MG/ML CPJ IV PRN (19:07)
[2018-06-18 22:45] LABS: PLATELET ESTIMATE MARKEDLY DECREASED
[2018-06-19] VITALS: BP 121/80
[2018-06-19] MEDS: IPRATROPIUM BROMIDE (0.02%) 0.5MG/2.5ML NEB HHN SCH ×3 (02:00→21:19)
[2018-06-19 04:00] VITALS: BP 131/75
[2018-06-19 05:21] LABS: BASOPHILS % 0.5 % (0.0-2.0); EOSINOPHILS % 2.3 % (0.0-5.0); HEMOGLOBIN. 8.5 g/dL (14.0-18.0); LYMPHOCYTES % 6.9 % (20.0-50.0); MEAN CORPUSCULAR HEMOGLOBIN 38.7 pg (28.0-32.0); MONOCYTES % 12.5 % (2.0-8.0); NEUTROPHILS % 77.8 % (40.0-76.0); RED BLOOD CELL COUNT 2.18 mill/uL (4.7-6.1); RED CELL DISTRIBUTION WIDTH 16.2 % (11.6-14.6)
[2018-06-19 05:27] LABS: PARTIAL THROMBOPLASTIN TIME 43.6 sec (23.4-31.0); PROTHROMBIN TIME 19.4 sec (9.1-11.1)
[2018-06-19] MEDS: CALCIUM ACETATE 667MG CAPSULE PO SCH ×3 (07:50→12:14)
[2018-06-19 08:00] VITALS: BP 116/77
[2018-06-19 08:34] LABS: PLATELET 64 x1000/uL (130-400)
[2018-06-19 08:35] LABS: MEAN PLATELET VOLUME 9.4 fl (7.4-10.4)
[2018-06-19] MEDS: PROPRANOLOL HCL 10MG TABLET PO SCH ×2 (09:00→21:00)
[2018-06-19] MEDS: FOLIC ACID/VITAMIN B COMP W-C TABLET PO SCH (09:00)
[2018-06-19] MEDS: PANTOPRAZOLE SODIUM 40 MG/VIAL IV SCH (09:27)
[2018-06-19] MEDS: CALCITRIOL 1MCG/ML AMP IV SCH (09:27)
[2018-06-19] MEDS ORDERED: PHYTONADIONE 10MG/ML AMP SUBCUT NR (14:00)
[2018-06-19] MEDS: IPRATROPIUM/ALBUTEROL 0.5-3(2.5)MG/3ML NEB INH PRN (14:42)
[2018-06-19 16:41] LABS: BASOPHILS % 0.3 % (0.0-2.0); EOSINOPHILS % 1.8 % (0.0-5.0); HEMATOCRIT. 22.4 % (42.0-52.0); HEMOGLOBIN. 7.9 g/dL (14.0-18.0); LYMPHOCYTES % 7.8 % (20.0-50.0); MEAN CORPUSCULAR HEMOGLOBIN 38.5 pg (28.0-32.0); MEAN CORPUSCULAR VOLUME 109.2 fL (80.0-94.0); MEAN PLATELET VOLUME 8.7 fl (7.4-10.4); MONOCYTES % 11.7 % (2.0-8.0); NEUTROPHILS % 78.4 % (40.0-76.0); PLATELET 61 x1000/uL (130-400); RED BLOOD CELL COUNT 2.05 mill/uL (4.7-6.1); RED CELL DISTRIBUTION WIDTH 15.7 % (11.6-14.6)
[2018-06-19 20:00] VITALS: BP 108/56
[2018-06-20] VITALS (28 sets, daily range): BP systolic 100–120; BP diastolic 45–63
[2018-06-20] MEDS: IPRATROPIUM BROMIDE (0.02%) 0.5MG/2.5ML NEB HHN SCH ×3 (02:20→16:10)
[2018-06-20 05:19] LABS: PLATELET ESTIMATE DECREASED
[2018-06-20 06:57] LABS: BASOPHILS % 0.2 % (0.0-2.0); EOSINOPHILS % 2.2 % (0.0-5.0); HEMATOCRIT. 21.2 % (42.0-52.0); HEMOGLOBIN. 7.3 g/dL (14.0-18.0); LYMPHOCYTES % 9.3 % (20.0-50.0); MEAN PLATELET VOLUME 9.4 fl (7.4-10.4); MONOCYTES % 14.3 % (2.0-8.0); PLATELET 54 x1000/uL (130-400); RED BLOOD CELL COUNT 1.93 mill/uL (4.7-6.1); RED CELL DISTRIBUTION WIDTH 16.2 % (11.6-14.6)
[2018-06-20 07:00] LABS: PHOSPHORUS 6.6 mg/dL (2.5-4.9)
[2018-06-20 07:08] LABS: INR 1.8; PARTIAL THROMBOPLASTIN TIME 39.5 sec (23.4-31.0); PROTHROMBIN TIME 17.6 sec (9.1-11.1)
[2018-06-20] MEDS: CALCIUM ACETATE 667MG CAPSULE PO SCH ×3 (07:34→17:40)
[2018-06-20] MEDS: IPRATROPIUM/ALBUTEROL 0.5-3(2.5)MG/3ML NEB INH PRN ×2 (08:33→21:31)
[2018-06-20] MEDS: PANTOPRAZOLE SODIUM 40 MG/VIAL IV SCH (09:00)
[2018-06-20] MEDS: PROPRANOLOL HCL 10MG TABLET PO SCH ×2 (09:00→20:56)
[2018-06-20] MEDS ORDERED: CALCITRIOL 1MCG/ML AMP IV SCH (09:00)
[2018-06-20] MEDS: FOLIC ACID/VITAMIN B COMP W-C TABLET PO SCH (09:00)
[2018-06-20] MEDS ORDERED: LIDOCAINE HCL 1% 10 MG/ML 10ML VIAL ONE ×2 (09:02→09:21)
[2018-06-20] MEDS ORDERED: SODIUM BICARBONATE 4% (2.4MEQ) 5ML VIAL IV ONE ×2 (09:03→09:21)
[2018-06-20] MEDS ORDERED: HEPARIN 1000 UNITS/ML 10ML ONE (09:21)
[2018-06-20] MEDS: LORAZEPAM 2MG/ML CPJ IV PRN ×2 (14:54→21:53)
[2018-06-21] VITALS (10 sets, daily range): BP systolic 104–127; BP diastolic 54–65
[2018-06-21] MEDS: IPRATROPIUM BROMIDE (0.02%) 0.5MG/2.5ML NEB HHN SCH ×4 (01:39→22:37)
[2018-06-21 07:08] LABS: CHLORIDE 112 mEq/L (98-107)
[2018-06-21 07:27] LABS: BASOPHILS % 0.3 % (0.0-2.0); EOSINOPHILS % 2.5 % (0.0-5.0); LYMPHOCYTES % 7.9 % (20.0-50.0); MEAN CORPUSCULAR VOLUME 111.5 fL (80.0-94.0); MEAN PLATELET VOLUME 9.1 fl (7.4-10.4); MONOCYTES % 12.5 % (2.0-8.0); NEUTROPHILS % 76.8 % (40.0-76.0); PLATELET 56 x1000/uL (130-400); RED CELL DISTRIBUTION WIDTH 16.2 % (11.6-14.6)
[2018-06-21 07:32] LABS: PHOSPHORUS 8.1 mg/dL (2.5-4.9)
[2018-06-21] MEDS: CALCIUM ACETATE 667MG CAPSULE PO SCH ×2 (07:40→20:54)
[2018-06-21 07:47] LABS: HEMATOCRIT. 20.1 % (42.0-52.0)
[2018-06-21] MEDS: FOLIC ACID/VITAMIN B COMP W-C TABLET PO SCH (08:23)
[2018-06-21] MEDS: PANTOPRAZOLE SODIUM 40 MG/VIAL IV SCH ×2 (08:23→20:54)
[2018-06-21] MEDS: PROPRANOLOL HCL 10MG TABLET PO SCH ×2 (08:23→21:00)
[2018-06-21] MEDS: LORAZEPAM 2MG/ML CPJ IV PRN ×2 (08:43→23:59)
[2018-06-21 17:31] LABS: HEMATOCRIT 19.4 % (42.0-52.0); HEMOGLOBIN 6.6 g/dL (14.0-18.0)
[2018-06-22 00:38] LABS: HEMATOCRIT 22.4 % (42.0-52.0); HEMOGLOBIN 7.8 g/dL (14.0-18.0)
[2018-06-22] MEDS: DIPHENHYDRAMINE 50MG/ML VIAL IV PRN (01:39)
[2018-06-22] MEDS: IPRATROPIUM BROMIDE (0.02%) 0.5MG/2.5ML NEB HHN SCH ×3 (02:19→14:00)
[2018-06-22 04:00] VITALS: BP 127/82
[2018-06-22 06:41] LABS: INR 2.1; PARTIAL THROMBOPLASTIN TIME 44.3 sec (23.4-31.0); PROTHROMBIN TIME 20.4 sec (9.1-11.1)
[2018-06-22 06:47] LABS: BASOPHILS % 0.3 % (0.0-2.0); EOSINOPHILS % 3.4 % (0.0-5.0); HEMATOCRIT. 23.4 % (42.0-52.0); LYMPHOCYTES % 9.4 % (20.0-50.0); MEAN CORPUSCULAR HEMOGLOBIN 36.6 pg (28.0-32.0); MEAN CORPUSCULAR VOLUME 106.1 fL (80.0-94.0); MONOCYTES % 13.8 % (2.0-8.0); NEUTROPHILS % 73.1 % (40.0-76.0); RED BLOOD CELL COUNT 2.21 mill/uL (4.7-6.1); RED CELL DISTRIBUTION WIDTH 20.4 % (11.6-14.6)
[2018-06-22 07:43] LABS: CHLORIDE 109 mEq/L (98-107)
[2018-06-22 08:00] VITALS: BP 121/75
[2018-06-22 08:13] LABS: HEMOGLOBIN. 8.1 g/dL (14.0-18.0)
[2018-06-22 08:15] LABS: PLATELET 47 x1000/uL (130-400)
[2018-06-22] MEDS: PANTOPRAZOLE SODIUM 40 MG/VIAL IV SCH ×2 (09:02→20:37)
[2018-06-22] MEDS: FOLIC ACID/VITAMIN B COMP W-C TABLET PO SCH (09:02)
[2018-06-22] MEDS: PROPRANOLOL HCL 10MG TABLET PO SCH ×2 (09:03→21:00)
[2018-06-22] MEDS: CALCIUM ACETATE 667MG CAPSULE PO SCH ×3 (09:03→17:25)
[2018-06-22] MEDS: CALCITRIOL 0.25MCG CAPSULE PO SCH (09:03)
[2018-06-22 09:09] LABS: PLATELET ESTIMATE MARKEDLY DECREASED
[2018-06-22 12:00] VITALS: BP 112/68
[2018-06-22] MEDS: IPRATROPIUM/ALBUTEROL 0.5-3(2.5)MG/3ML NEB INH PRN ×2 (13:14→20:01)
[2018-06-22 16:04] VITALS: BP 90/40
[2018-06-22] MEDS ORDERED: FENTANYL CITRATE/PF 50MCG/ML 2ML VIAL ONE (16:09)
[2018-06-22] MEDS ORDERED: MIDAZOLAM HCL 5 MG/5 ML VIAL ONE (16:09)
[2018-06-22] MEDS ORDERED: SIMETHICONE 40 MG/0.6 ML 30ML ONE (16:09)
[2018-06-22 16:11] VITALS: BP 101/53
[2018-06-22] MEDS ORDERED: MIDAZOLAM HCL 5 MG/5 ML VIAL IV PRN (16:14)
[2018-06-22 20:00] VITALS: BP 119/65
[2018-06-23] VITALS (7 sets, daily range): BP systolic 91–144; BP diastolic 61–78
[2018-06-23] MEDS: LORAZEPAM 2MG/ML CPJ IV PRN ×2 (00:31→21:44)
[2018-06-23] MEDS: IPRATROPIUM/ALBUTEROL 0.5-3(2.5)MG/3ML NEB INH PRN ×2 (00:48→15:51)
[2018-06-23 07:35] LABS: BASOPHILS % 0.5 % (0.0-2.0); EOSINOPHILS % 4.6 % (0.0-5.0); HEMATOCRIT. 24.1 % (42.0-52.0); HEMOGLOBIN. 8.4 g/dL (14.0-18.0); MEAN CORPUSCULAR HEMOGLOBIN 37.2 pg (28.0-32.0); MEAN CORPUSCULAR VOLUME 106.1 fL (80.0-94.0); MEAN PLATELET VOLUME 8.8 fl (7.4-10.4); MONOCYTES % 12.8 % (2.0-8.0); NEUTROPHILS % 72.1 % (40.0-76.0); RED BLOOD CELL COUNT 2.27 mill/uL (4.7-6.1); RED CELL DISTRIBUTION WIDTH 19.2 % (11.6-14.6)
[2018-06-23] MEDS: CALCIUM ACETATE 667MG CAPSULE PO SCH ×3 (07:59→16:54)
[2018-06-23 08:16] LABS: PLATELET 45 x1000/uL (130-400)
[2018-06-23 08:17] LABS: PHOSPHORUS 6.6 mg/dL (2.5-4.9)
[2018-06-23] MEDS: FOLIC ACID/VITAMIN B COMP W-C TABLET PO SCH (09:08)
[2018-06-23] MEDS: PANTOPRAZOLE SODIUM 40 MG/VIAL IV SCH ×2 (09:08→20:44)
[2018-06-23] MEDS: PROPRANOLOL HCL 10MG TABLET PO SCH ×2 (09:09→20:44)
[2018-06-23] MEDS: DIPHENHYDRAMINE 50MG/ML VIAL IV PRN ×2 (11:33→23:47)
[2018-06-23] MEDS: IPRATROPIUM BROMIDE (0.02%) 0.5MG/2.5ML NEB HHN SCH ×2 (14:00→20:53)
[2018-06-24] VITALS: BP 107/59
[2018-06-24] MEDS: IPRATROPIUM BROMIDE (0.02%) 0.5MG/2.5ML NEB HHN SCH ×2 (02:32→20:53)
[2018-06-24 04:00] VITALS: BP 104/47
[2018-06-24 06:47] LABS: HEMATOCRIT. 22.8 % (42.0-52.0); HEMOGLOBIN. 7.9 g/dL (14.0-18.0); MEAN CORPUSCULAR VOLUME 106.6 fL (80.0-94.0); MEAN PLATELET VOLUME 9.3 fl (7.4-10.4); RED BLOOD CELL COUNT 2.14 mill/uL (4.7-6.1)
[2018-06-24 06:51] LABS: PLATELET 29 x1000/uL (130-400)
[2018-06-24] MEDS: IPRATROPIUM/ALBUTEROL 0.5-3(2.5)MG/3ML NEB INH PRN (07:42)
[2018-06-24 08:00] VITALS: BP 108/66
[2018-06-24] MEDS: PROPRANOLOL HCL 10MG TABLET PO SCH ×2 (08:13→20:12)
[2018-06-24] MEDS: CALCITRIOL 0.25MCG CAPSULE PO SCH (08:18)
[2018-06-24] MEDS: CALCIUM ACETATE 667MG CAPSULE PO SCH ×4 (08:18→18:35)
[2018-06-24] MEDS: FOLIC ACID/VITAMIN B COMP W-C TABLET PO SCH (08:18)
[2018-06-24] MEDS: PANTOPRAZOLE SODIUM 40 MG/VIAL IV SCH ×2 (08:18→20:12)
[2018-06-24 10:26] LABS: PLATELET ESTIMATE MARKEDLY DECREASED
[2018-06-24 12:00] VITALS: BP 118/70
[2018-06-24] MEDS: LORAZEPAM 2MG/ML CPJ IV PRN ×2 (13:28→23:06)
[2018-06-24 16:00] VITALS: BP 121/72
[2018-06-24 20:00] VITALS: BP 133/72
[2018-06-24] MEDS: DIPHENHYDRAMINE 50MG/ML VIAL IV PRN (20:55)
[2018-06-25] VITALS (9 sets, daily range): BP systolic 112–151; BP diastolic 52–78
[2018-06-25] MEDS: IPRATROPIUM BROMIDE (0.02%) 0.5MG/2.5ML NEB HHN SCH ×2 (01:18→21:23)
[2018-06-25] MEDS: DIPHENHYDRAMINE 50MG/ML VIAL IV PRN ×3 (03:08→20:23)
[2018-06-25] MEDS: LORAZEPAM 2MG/ML CPJ IV PRN ×3 (05:08→22:56)
[2018-06-25] MEDS: CALCIUM ACETATE 667MG CAPSULE PO SCH ×3 (07:40→16:53)
[2018-06-25 08:45] LABS: HEMATOCRIT. 21.6 % (42.0-52.0); HEMOGLOBIN. 7.5 g/dL (14.0-18.0); MEAN CORPUSCULAR VOLUME 106.5 fL (80.0-94.0); MEAN PLATELET VOLUME 8.4 fl (7.4-10.4); RED BLOOD CELL COUNT 2.02 mill/uL (4.7-6.1); RED CELL DISTRIBUTION WIDTH 18.7 % (11.6-14.6)
[2018-06-25] MEDS: IPRATROPIUM/ALBUTEROL 0.5-3(2.5)MG/3ML NEB INH PRN ×2 (08:54→14:31)
[2018-06-25] MEDS: PROPRANOLOL HCL 10MG TABLET PO SCH ×2 (09:00→20:20)
[2018-06-25] MEDS: FOLIC ACID/VITAMIN B COMP W-C TABLET PO SCH (09:00)
[2018-06-25] MEDS: PANTOPRAZOLE SODIUM 40 MG/VIAL IV SCH ×2 (09:00→20:20)
[2018-06-25 09:46] LABS: PLATELET 20 x1000/uL (130-400)
[2018-06-25 09:58] LABS: CHLORIDE 107 mEq/L (98-107)
[2018-06-25 14:25] LABS: PLATELET ESTIMATE MARKEDLY DECREASED
[2018-06-26] VITALS (10 sets, daily range): BP systolic 116–152; BP diastolic 57–82
[2018-06-26] MEDS: IPRATROPIUM BROMIDE (0.02%) 0.5MG/2.5ML NEB HHN SCH ×2 (00:37→20:05)
[2018-06-26 02:18] LABS: INR 1.8; PARTIAL THROMBOPLASTIN TIME 37.6 sec (23.4-31.0); PROTHROMBIN TIME 18.1 sec (9.1-11.1)
[2018-06-26 02:29] LABS: HEMATOCRIT 19.6 % (42.0-52.0); HEMOGLOBIN 6.8 g/dL (14.0-18.0)
[2018-06-26] MEDS: DIPHENHYDRAMINE 50MG/ML VIAL IV PRN (03:23)
[2018-06-26 07:30] LABS: MEAN CORPUSCULAR HEMOGLOBIN 37.4 pg (28.0-32.0); MEAN CORPUSCULAR VOLUME 107.4 fL (80.0-94.0); MEAN PLATELET VOLUME 8.7 fl (7.4-10.4); PLATELET 55 x1000/uL (130-400); RED BLOOD CELL COUNT 1.87 mill/uL (4.7-6.1); RED CELL DISTRIBUTION WIDTH 18.7 % (11.6-14.6)
[2018-06-26 07:38] LABS: CHLORIDE 107 mEq/L (98-107)
[2018-06-26 07:49] LABS: PHOSPHORUS 5.1 mg/dL (2.5-4.9)
[2018-06-26] MEDS: PROPRANOLOL HCL 10MG TABLET PO SCH ×2 (08:01→21:00)
[2018-06-26] MEDS: CALCIUM ACETATE 667MG CAPSULE PO SCH ×3 (08:01→16:11)
[2018-06-26] MEDS: PANTOPRAZOLE SODIUM 40 MG/VIAL IV SCH ×2 (08:01→21:43)
[2018-06-26] MEDS: FOLIC ACID/VITAMIN B COMP W-C TABLET PO SCH (08:01)
[2018-06-26 08:11] LABS: HEMATOCRIT. 20.1 % (42.0-52.0)
[2018-06-26] MEDS: LORAZEPAM 2MG/ML CPJ IV PRN (12:47)
[2018-06-27] VITALS (15 sets, daily range): BP systolic 105–136; BP diastolic 60–86
[2018-06-27] MEDS: IPRATROPIUM BROMIDE (0.02%) 0.5MG/2.5ML NEB HHN SCH ×3 (02:19→20:03)
[2018-06-27] MEDS: LORAZEPAM 2MG/ML CPJ IV PRN ×2 (05:09→21:21)
[2018-06-27 07:48] LABS: HEMATOCRIT. 22.2 % (42.0-52.0); HEMOGLOBIN. 7.7 g/dL (14.0-18.0); MEAN CORPUSCULAR HEMOGLOBIN 35.6 pg (28.0-32.0); MEAN CORPUSCULAR VOLUME 102.6 fL (80.0-94.0); MEAN PLATELET VOLUME 8.9 fl (7.4-10.4); RED BLOOD CELL COUNT 2.17 mill/uL (4.7-6.1); RED CELL DISTRIBUTION WIDTH 20.6 % (11.6-14.6)
[2018-06-27 08:01] LABS: CHLORIDE 105 mEq/L (98-107)
[2018-06-27 08:06] LABS: PLATELET 49 x1000/uL (130-400)
[2018-06-27 08:11] LABS: PHOSPHORUS 5.5 mg/dL (2.5-4.9)
[2018-06-27] MEDS: CALCIUM ACETATE 667MG CAPSULE PO SCH ×3 (08:52→17:12)
[2018-06-27] MEDS: FOLIC ACID/VITAMIN B COMP W-C TABLET PO SCH (08:52)
[2018-06-27] MEDS: PANTOPRAZOLE SODIUM 40 MG/VIAL IV SCH ×2 (08:52→21:21)
[2018-06-27] MEDS: PROPRANOLOL HCL 10MG TABLET PO SCH ×3 (08:53→21:31)
[2018-06-27] MEDS: CALCITRIOL 0.25MCG CAPSULE PO SCH (08:53)
[2018-06-27 13:23] LABS: PLATELET ESTIMATE MARKEDLY DECREASED
[2018-06-27] MEDS ORDERED: ACETAMINOPHEN 325MG TABLET PO NR (13:45)
[2018-06-27 13:48] LABS: PLATELET ESTIMATE MARKEDLY DECREASED
[2018-06-27] MEDS: DIPHENHYDRAMINE 50MG/ML VIAL IV PRN (21:48)
[2018-06-28] VITALS: BP 131/82
[2018-06-28] MEDS: IPRATROPIUM BROMIDE (0.02%) 0.5MG/2.5ML NEB HHN SCH ×4 (01:01→21:16)
[2018-06-28 04:00] VITALS: BP 134/89
[2018-06-28] MEDS: DIPHENHYDRAMINE 50MG/ML VIAL IV PRN (04:58)
[2018-06-28 06:20] LABS: HEMATOCRIT. 21.8 % (42.0-52.0); HEMOGLOBIN. 7.5 g/dL (14.0-18.0); MEAN CORPUSCULAR HEMOGLOBIN 35.1 pg (28.0-32.0); MEAN CORPUSCULAR VOLUME 101.5 fL (80.0-94.0); PLATELET 61 x1000/uL (130-400); RED BLOOD CELL COUNT 2.15 mill/uL (4.7-6.1); RED CELL DISTRIBUTION WIDTH 20.9 % (11.6-14.6)
[2018-06-28 07:01] LABS: PHOSPHORUS 6.2 mg/dL (2.5-4.9)
[2018-06-28 08:00] VITALS: BP 156/77
[2018-06-28] MEDS: FOLIC ACID/VITAMIN B COMP W-C TABLET PO SCH (09:56)
[2018-06-28] MEDS: CALCIUM ACETATE 667MG CAPSULE PO SCH ×3 (09:56→18:22)
[2018-06-28] MEDS: PROPRANOLOL HCL 10MG TABLET PO SCH ×2 (09:56→21:12)
[2018-06-28] MEDS: PANTOPRAZOLE SODIUM 40 MG/VIAL IV SCH ×2 (09:56→21:12)
[2018-06-28 12:00] VITALS: BP_SYST 133; BP_SYST 135; BP_DIAS 53; BP_DIAS 79
[2018-06-28 13:13] LABS: PLATELET ESTIMATE MARKEDLY DECREASED
[2018-06-28] MEDS ORDERED: LIDOCAINE HCL 1% 20ML VIAL (Pyxis) INJ ONE (14:30)
[2018-06-28] MEDS ORDERED: SODIUM BICARBONATE 4% (2.4MEQ) 5ML VIAL IV ONE (14:30)
[2018-06-28 16:00] VITALS: BP 133/53
[2018-06-28 20:00] VITALS: BP 135/88
[2018-06-29] VITALS: BP 143/81
[2018-06-29] MEDS: IPRATROPIUM BROMIDE (0.02%) 0.5MG/2.5ML NEB HHN SCH ×4 (01:30→16:24)
[2018-06-29] MEDS: DIPHENHYDRAMINE 50MG/ML VIAL IV PRN ×2 (03:48→12:54)
[2018-06-29 04:00] VITALS: BP 119/51
[2018-06-29 07:08] LABS: BASOPHILS % 0.4 % (0.0-2.0); HEMATOCRIT. 23.5 % (42.0-52.0); HEMOGLOBIN. 8.3 g/dL (14.0-18.0); LYMPHOCYTES % 10.7 % (20.0-50.0); MEAN CORPUSCULAR HEMOGLOBIN 35.6 pg (28.0-32.0); MEAN CORPUSCULAR VOLUME 101.2 fL (80.0-94.0); MEAN PLATELET VOLUME 8.4 fl (7.4-10.4); MONOCYTES % 14.1 % (2.0-8.0); NEUTROPHILS % 70.8 % (40.0-76.0); PLATELET 60 x1000/uL (130-400); RED BLOOD CELL COUNT 2.32 mill/uL (4.7-6.1); RED CELL DISTRIBUTION WIDTH 20.3 % (11.6-14.6)
[2018-06-29 08:00] VITALS: BP 127/68
[2018-06-29] MEDS: PANTOPRAZOLE SODIUM 40 MG/VIAL IV SCH ×2 (08:51→21:00)
[2018-06-29] MEDS: PROPRANOLOL HCL 10MG TABLET PO SCH ×2 (08:51→21:00)
[2018-06-29] MEDS: FOLIC ACID/VITAMIN B COMP W-C TABLET PO SCH (08:51)
[2018-06-29] MEDS: CALCIUM ACETATE 667MG CAPSULE PO SCH ×3 (08:51→17:49)
[2018-06-29] MEDS: CALCITRIOL 0.25MCG CAPSULE PO SCH (08:52)
[2018-06-29] MEDS: LORAZEPAM 2MG/ML CPJ IV PRN (10:02)
[2018-06-29 12:22] VITALS: BP 106/49
[2018-06-29 16:00] VITALS: BP 97/55
[2018-06-29 20:00] VITALS: BP 138/69
[2018-06-30] VITALS: BP 131/75
[2018-06-30] MEDS: IPRATROPIUM/ALBUTEROL 0.5-3(2.5)MG/3ML NEB INH PRN (01:02)
[2018-06-30] MEDS: DIPHENHYDRAMINE 50MG/ML VIAL IV PRN (01:21)
[2018-06-30] MEDS: LORAZEPAM 2MG/ML CPJ IV PRN (02:33)
[2018-06-30 04:00] VITALS: BP 132/80
[2018-06-30 06:33] LABS: BASOPHILS % 0.6 % (0.0-2.0); EOSINOPHILS % 4.6 % (0.0-5.0); HEMATOCRIT. 22.7 % (42.0-52.0); HEMOGLOBIN. 8.1 g/dL (14.0-18.0); LYMPHOCYTES % 10.8 % (20.0-50.0); MEAN CORPUSCULAR VOLUME 100.8 fL (80.0-94.0); MEAN PLATELET VOLUME 8.2 fl (7.4-10.4); PLATELET 55 x1000/uL (130-400); RED BLOOD CELL COUNT 2.25 mill/uL (4.7-6.1); RED CELL DISTRIBUTION WIDTH 20.5 % (11.6-14.6)
[2018-06-30 06:53] LABS: CHLORIDE 104 mEq/L (98-107)
[2018-06-30 07:02] LABS: PHOSPHORUS 5.6 mg/dL (2.5-4.9)
[2018-06-30] MEDS: CALCIUM ACETATE 667MG CAPSULE PO SCH ×3 (07:40→17:40)
[2018-06-30 07:57] VITALS: BP 100/66
[2018-06-30] MEDS: PANTOPRAZOLE SODIUM 40 MG/VIAL IV SCH ×2 (08:34→21:00)
[2018-06-30] MEDS: PROPRANOLOL HCL 10MG TABLET PO SCH ×2 (08:34→21:00)
[2018-06-30] MEDS: FOLIC ACID/VITAMIN B COMP W-C TABLET PO SCH (08:34)
[2018-06-30] MEDS ORDERED: LORAZEPAM 2MG/ML CPJ IV PRN (09:45)
[2018-06-30 12:00] VITALS: BP 100/51
[2018-06-30] MEDS: IPRATROPIUM BROMIDE (0.02%) 0.5MG/2.5ML NEB HHN SCH (13:00)
[2018-06-30 16:00] VITALS: BP 90/64
[2018-06-30 20:00] VITALS: BP 115/73
[2018-06-30] MEDS ORDERED: QUETIAPINE FUMARATE 25MG TABLET PO SCH (21:00)
[2018-07-01] VITALS: BP 124/60
[2018-07-01 00:19] LABS: AMMONIA < 10 uMol/L (<32)
[2018-07-01] MEDS: IPRATROPIUM BROMIDE (0.02%) 0.5MG/2.5ML NEB HHN SCH ×5 (01:02→20:08)
[2018-07-01 04:00] VITALS: BP 125/66
[2018-07-01 08:00] VITALS: BP 129/72
[2018-07-01] MEDS ORDERED: DIPHENHYDRAMINE 50MG/ML VIAL IV PRN (08:45)
[2018-07-01] MEDS: CALCIUM ACETATE 667MG CAPSULE PO SCH ×3 (08:56→18:02)
[2018-07-01] MEDS: FOLIC ACID/VITAMIN B COMP W-C TABLET PO SCH (08:56)
[2018-07-01] MEDS: PANTOPRAZOLE SODIUM 40 MG/VIAL IV SCH ×2 (08:56→21:06)
[2018-07-01] MEDS: PROPRANOLOL HCL 10MG TABLET PO SCH ×2 (08:56→20:29)
[2018-07-01] MEDS: CALCITRIOL 0.25MCG CAPSULE PO SCH (08:56)
[2018-07-01 09:34] LABS: BASOPHILS % 0.5 % (0.0-2.0); EOSINOPHILS % 4.3 % (0.0-5.0); HEMATOCRIT. 22.4 % (42.0-52.0); HEMOGLOBIN. 7.8 g/dL (14.0-18.0); LYMPHOCYTES % 11.3 % (20.0-50.0); MEAN CORPUSCULAR HEMOGLOBIN 35.7 pg (28.0-32.0); MEAN PLATELET VOLUME 8.4 fl (7.4-10.4); MONOCYTES % 11.8 % (2.0-8.0); NEUTROPHILS % 72.1 % (40.0-76.0); PLATELET 52 x1000/uL (130-400); RED CELL DISTRIBUTION WIDTH 20.6 % (11.6-14.6)
[2018-07-01 09:46] LABS: AMMONIA 11 uMol/L (<32)
[2018-07-01 12:00] VITALS: BP 139/76
[2018-07-01 16:00] VITALS: BP 126/76
[2018-07-01 20:00] VITALS: BP 141/69
[2018-07-01] MEDS: RISPERIDONE 0.25MG TABLET PO SCH (20:29)
[2018-07-01] MEDS: DIPHENHYDRAMINE 50MG/ML VIAL IV PRN (22:05)
[2018-07-02] VITALS (11 sets, daily range): BP systolic 119–146; BP diastolic 66–81
[2018-07-02] MEDS: IPRATROPIUM BROMIDE (0.02%) 0.5MG/2.5ML NEB HHN SCH ×4 (02:00→21:24)
[2018-07-02 07:36] LABS: HEMOGLOBIN. 7.2 g/dL (14.0-18.0); MEAN CORPUSCULAR HEMOGLOBIN 35.5 pg (28.0-32.0); MEAN CORPUSCULAR VOLUME 100.6 fL (80.0-94.0); MEAN PLATELET VOLUME 8.5 fl (7.4-10.4); RED BLOOD CELL COUNT 2.03 mill/uL (4.7-6.1); RED CELL DISTRIBUTION WIDTH 20.5 % (11.6-14.6)
[2018-07-02 07:39] LABS: HEMATOCRIT. 20.5 % (42.0-52.0)
[2018-07-02 07:40] LABS: PLATELET 45 x1000/uL (130-400)
[2018-07-02] MEDS: CALCIUM ACETATE 667MG CAPSULE PO SCH ×3 (07:40→18:03)
[2018-07-02 08:28] LABS: PLATELET ESTIMATE MARKEDLY DECREASED
[2018-07-02] MEDS: PROPRANOLOL HCL 10MG TABLET PO SCH ×2 (08:41→20:53)
[2018-07-02] MEDS: PANTOPRAZOLE SODIUM 40 MG/VIAL IV SCH ×2 (08:46→21:19)
[2018-07-02] MEDS: FOLIC ACID/VITAMIN B COMP W-C TABLET PO SCH (08:46)
[2018-07-02 09:02] LABS: PHOSPHORUS 4.9 mg/dL (2.5-4.9)
[2018-07-02] MEDS: DIPHENHYDRAMINE 50MG/ML VIAL IV PRN (09:49)
[2018-07-02 19:21] LABS: HEMATOCRIT 24.4 % (42.0-52.0); HEMOGLOBIN 8.7 g/dL (14.0-18.0)
[2018-07-02] MEDS: RISPERIDONE 0.25MG TABLET PO SCH (20:53)
[2018-07-03] VITALS: BP 128/89
[2018-07-03] MEDS: IPRATROPIUM BROMIDE (0.02%) 0.5MG/2.5ML NEB HHN SCH ×2 (01:19→20:29)
[2018-07-03 04:00] VITALS: BP 116/60
[2018-07-03] MEDS: DIPHENHYDRAMINE 50MG/ML VIAL IV PRN (05:16)
[2018-07-03 07:05] LABS: HEMATOCRIT 24.5 % (42.0-52.0); HEMOGLOBIN 8.9 g/dL (14.0-18.0); MEAN CORPUSCULAR HEMOGLOBIN 35.7 pg (28.0-32.0); RED CELL DISTRIBUTION WIDTH 19.7 % (11.6-14.6)
[2018-07-03 07:36] LABS: PLATELET 37 x1000/uL (130-400)
[2018-07-03] MEDS: CALCIUM ACETATE 667MG CAPSULE PO SCH ×3 (07:40→16:47)
[2018-07-03] MEDS: PANTOPRAZOLE SODIUM 40 MG/VIAL IV SCH ×2 (08:40→20:46)
[2018-07-03] MEDS: FOLIC ACID/VITAMIN B COMP W-C TABLET PO SCH (08:40)
[2018-07-03] MEDS: PROPRANOLOL HCL 10MG TABLET PO SCH ×2 (08:40→20:48)
[2018-07-03 12:00] VITALS: BP 112/63
[2018-07-03] MEDS ORDERED: LORAZEPAM 2MG/ML CPJ IV PRN (13:45)
[2018-07-03 16:00] VITALS: BP 136/65
[2018-07-03 20:00] VITALS: BP 140/80
[2018-07-03] MEDS: RISPERIDONE 0.5MG TABLET PO SCH (20:48)
[2018-07-04] VITALS: BP 140/90
[2018-07-04] MEDS: IPRATROPIUM BROMIDE (0.02%) 0.5MG/2.5ML NEB HHN SCH ×4 (01:30→20:31)
[2018-07-04 03:55] VITALS: BP 143/93
[2018-07-04 06:51] LABS: HEMATOCRIT 22.3 % (42.0-52.0); HEMOGLOBIN 8.1 g/dL (14.0-18.0); MEAN CORPUSCULAR HEMOGLOBIN 35.6 pg (28.0-32.0); MEAN CORPUSCULAR VOLUME 98.5 fL (80.0-94.0); RED BLOOD CELL COUNT 2.27 mill/uL (4.7-6.1); RED CELL DISTRIBUTION WIDTH 19.7 % (11.6-14.6)
[2018-07-04 07:35] LABS: PLATELET 27 x1000/uL (130-400)
[2018-07-04 08:00] VITALS: BP 144/77
[2018-07-04] MEDS ORDERED: RISPERIDONE 0.25MG TABLET PO SCH (09:00)
[2018-07-04] MEDS: PROPRANOLOL HCL 10MG TABLET PO SCH ×2 (10:02→20:14)
[2018-07-04] MEDS: FOLIC ACID/VITAMIN B COMP W-C TABLET PO SCH (10:03)
[2018-07-04] MEDS: CALCITRIOL 0.25MCG CAPSULE PO SCH (10:03)
[2018-07-04] MEDS: CALCIUM ACETATE 667MG CAPSULE PO SCH ×2 (10:03→13:02)
[2018-07-04] MEDS: PANTOPRAZOLE SODIUM 40 MG/VIAL IV SCH ×2 (10:09→20:11)
[2018-07-04 12:00] VITALS: BP 128/77
[2018-07-04 16:00] VITALS: BP 129/76
[2018-07-04 20:00] VITALS: BP 130/69
[2018-07-04] MEDS: DIPHENHYDRAMINE 50MG/ML VIAL IV PRN (20:11)
[2018-07-04] MEDS: RISPERIDONE 0.5MG TABLET PO SCH (20:11)
[2018-07-05] VITALS: BP 146/60
[2018-07-05] MEDS: IPRATROPIUM BROMIDE (0.02%) 0.5MG/2.5ML NEB HHN SCH ×4 (01:30→19:51)
[2018-07-05 04:00] VITALS: BP 133/73
[2018-07-05 07:20] LABS: HEMATOCRIT. 23.6 % (42.0-52.0); HEMOGLOBIN. 8.4 g/dL (14.0-18.0); MEAN CORPUSCULAR HEMOGLOBIN 35.3 pg (28.0-32.0); MEAN CORPUSCULAR VOLUME 99.2 fL (80.0-94.0); MEAN PLATELET VOLUME 8.2 fl (7.4-10.4); RED BLOOD CELL COUNT 2.38 mill/uL (4.7-6.1)
[2018-07-05 07:58] LABS: CHLORIDE 104 mEq/L (98-107)
[2018-07-05 08:00] VITALS: BP 144/85
[2018-07-05] MEDS ORDERED: OLANZAPINE 10 MG/VIAL IM PRN (08:00)
[2018-07-05 08:29] LABS: PHOSPHORUS 5.2 mg/dL (2.5-4.9)
[2018-07-05] MEDS: PROPRANOLOL HCL 10MG TABLET PO SCH ×2 (09:00→21:10)
[2018-07-05] MEDS ORDERED: DESMOPRESSIN ACETATE IV SCH (09:00)
[2018-07-05] MEDS ORDERED: SODIUM CHLORIDE 0.9% IV SCH (09:00)
[2018-07-05] MEDS: PANTOPRAZOLE SODIUM 40 MG/VIAL IV SCH ×2 (09:15→21:09)
[2018-07-05] MEDS: CALCIUM ACETATE 667MG CAPSULE PO SCH ×3 (09:15→17:56)
[2018-07-05] MEDS: FOLIC ACID/VITAMIN B COMP W-C TABLET PO SCH (09:15)
[2018-07-05] MEDS: OLANZAPINE 10 MG/VIAL IM SCH (09:47)
[2018-07-05 12:00] VITALS: BP 122/79
[2018-07-05 13:54] LABS: PLATELET ESTIMATE MARKEDLY DECREASED
[2018-07-05 13:55] LABS: PLATELET 33 x1000/uL (130-400)
[2018-07-05] MEDS: DIPHENHYDRAMINE 50MG/ML VIAL IV PRN ×2 (14:31→22:03)
[2018-07-05 16:15] VITALS: BP 127/75
[2018-07-05 20:00] VITALS: BP 128/68
[2018-07-06] VITALS: BP 123/76
[2018-07-06] MEDS: OLANZAPINE 10 MG/VIAL IM SCH (01:16)
[2018-07-06] MEDS: IPRATROPIUM BROMIDE (0.02%) 0.5MG/2.5ML NEB HHN SCH ×4 (02:23→19:47)
[2018-07-06 04:00] VITALS: BP_SYST 128; BP_SYST 135; BP_DIAS 68; BP_DIAS 69
[2018-07-06 07:07] LABS: MEAN CORPUSCULAR HEMOGLOBIN 34.3 pg (28.0-32.0); MEAN CORPUSCULAR VOLUME 98.5 fL (80.0-94.0); MEAN PLATELET VOLUME 8.3 fl (7.4-10.4); RED BLOOD CELL COUNT 2.08 mill/uL (4.7-6.1)
[2018-07-06 07:51] VITALS: BP 141/75
[2018-07-06 08:02] LABS: PHOSPHORUS 3.9 mg/dL (2.5-4.9)
[2018-07-06 08:04] LABS: HEMOGLOBIN. 7.1 g/dL (14.0-18.0)
[2018-07-06 08:05] LABS: HEMATOCRIT. 20.5 % (42.0-52.0)
[2018-07-06] MEDS: CALCITRIOL 0.25MCG CAPSULE PO SCH (09:00)
[2018-07-06] MEDS: FOLIC ACID/VITAMIN B COMP W-C TABLET PO SCH (09:00)
[2018-07-06] MEDS: PANTOPRAZOLE SODIUM 40 MG/VIAL IV SCH ×2 (09:00→20:17)
[2018-07-06] MEDS: CALCIUM ACETATE 667MG CAPSULE PO SCH ×3 (09:00→17:39)
[2018-07-06] MEDS: PROPRANOLOL HCL 10MG TABLET PO SCH ×2 (09:00→20:51)
[2018-07-06 10:55] LABS: PLATELET ESTIMATE MARKEDLY DECREASED
[2018-07-06 10:56] LABS: PLATELET 24 x1000/uL (130-400)
[2018-07-06 12:00] VITALS: BP 137/76
[2018-07-06 15:53] VITALS: BP 118/91
[2018-07-06 20:00] VITALS: BP 137/67
[2018-07-07] VITALS (7 sets, daily range): BP systolic 136–147; BP diastolic 73–82
[2018-07-07] MEDS: IPRATROPIUM BROMIDE (0.02%) 0.5MG/2.5ML NEB HHN SCH ×4 (01:20→21:20)
[2018-07-07 08:31] LABS: HEMOGLOBIN. 7.5 g/dL (14.0-18.0); MEAN CORPUSCULAR HEMOGLOBIN 35.6 pg (28.0-32.0); MEAN CORPUSCULAR VOLUME 99.5 fL (80.0-94.0); MEAN PLATELET VOLUME 7.8 fl (7.4-10.4); RED BLOOD CELL COUNT 2.11 mill/uL (4.7-6.1); RED CELL DISTRIBUTION WIDTH 19.4 % (11.6-14.6)
[2018-07-07 08:38] LABS: PLATELET 27 x1000/uL (130-400)
[2018-07-07 09:05] LABS: PHOSPHORUS 4.2 mg/dL (2.5-4.9)
[2018-07-07 09:16] LABS: PLATELET ESTIMATE MARKEDLY DECREASED
[2018-07-07] MEDS: FOLIC ACID/VITAMIN B COMP W-C TABLET PO SCH (09:19)
[2018-07-07] MEDS: CALCIUM ACETATE 667MG CAPSULE PO SCH ×3 (09:20→17:42)
[2018-07-07] MEDS: PROPRANOLOL HCL 20MG TABLET PO SCH ×2 (11:11→21:40)
[2018-07-07] MEDS: OLANZAPINE 5MG TABLET ODT PO SCH ×2 (11:48→21:39)
[2018-07-08] VITALS: BP 149/88
[2018-07-08] MEDS: IPRATROPIUM BROMIDE (0.02%) 0.5MG/2.5ML NEB HHN SCH ×4 (01:04→20:47)
[2018-07-08 04:00] VITALS: BP 132/67
[2018-07-08 07:43] VITALS: BP 148/68
[2018-07-08 07:57] LABS: BASOPHILS % 0.7 % (0.0-2.0); EOSINOPHILS % 5.2 % (0.0-5.0); HEMATOCRIT. 23.5 % (42.0-52.0); HEMOGLOBIN. 8.4 g/dL (14.0-18.0); LYMPHOCYTES % 16.8 % (20.0-50.0); MEAN CORPUSCULAR HEMOGLOBIN 35.3 pg (28.0-32.0); MEAN CORPUSCULAR VOLUME 98.5 fL (80.0-94.0); MONOCYTES % 14.8 % (2.0-8.0); NEUTROPHILS % 62.5 % (40.0-76.0); RED BLOOD CELL COUNT 2.39 mill/uL (4.7-6.1); RED CELL DISTRIBUTION WIDTH 18.9 % (11.6-14.6)
[2018-07-08 08:01] LABS: PLATELET 33 x1000/uL (130-400)
[2018-07-08] MEDS: PROPRANOLOL HCL 20MG TABLET PO SCH ×3 (08:03→21:57)
[2018-07-08] MEDS: CALCITRIOL 0.25MCG CAPSULE PO SCH (08:07)
[2018-07-08] MEDS: FOLIC ACID/VITAMIN B COMP W-C TABLET PO SCH (08:07)
[2018-07-08] MEDS: CALCIUM ACETATE 667MG CAPSULE PO SCH ×3 (08:07→17:22)
[2018-07-08] MEDS: OLANZAPINE 5MG TABLET ODT PO SCH (08:09)
[2018-07-08 08:30] LABS: PHOSPHORUS 4.7 mg/dL (2.5-4.9)
[2018-07-08] MEDS ORDERED: MAGNESIUM 2 G PREMIX 50 ML IV ONE (09:15)
[2018-07-08] MEDS ORDERED: MAGNESIUM SULFATE 2 GM in DEXTROSE 5% WATER 50 ML IV SCH (10:00)
[2018-07-08 12:00] VITALS: BP 131/80
[2018-07-08 16:00] VITALS: BP 128/80
[2018-07-08 20:00] VITALS: BP 133/76
[2018-07-08] MEDS ORDERED: OLANZAPINE 5MG TABLET ODT PO SCH (21:00)
[2018-07-09] VITALS: BP 135/88
[2018-07-09] MEDS: IPRATROPIUM BROMIDE (0.02%) 0.5MG/2.5ML NEB HHN SCH ×4 (01:42→22:29)
[2018-07-09 04:00] VITALS: BP 128/74
[2018-07-09] MEDS: PROPRANOLOL HCL 20MG TABLET PO SCH ×3 (05:49→22:00)
[2018-07-09 08:00] VITALS: BP 136/67
[2018-07-09 09:08] LABS: IMMUNOGLOBULIN A 1318 mg/dL (90-386); IMMUNOGLOBULIN G 3151 mg/dL (700-1600); IMMUNOGLOBULIN M 226 mg/dL (20-172)
[2018-07-09] MEDS: CALCIUM ACETATE 667MG CAPSULE PO SCH ×3 (09:26→17:05)
[2018-07-09] MEDS: FOLIC ACID/VITAMIN B COMP W-C TABLET PO SCH (09:26)
[2018-07-09] MEDS: OLANZAPINE 5MG TABLET ODT PO SCH (09:27)
[2018-07-09 12:00] VITALS: BP 155/84
[2018-07-09 13:30] LABS: CHLORIDE 104 mEq/L (98-107)
[2018-07-09 13:37] LABS: BASOPHILS % 0.2 % (0.0-2.0); EOSINOPHILS % 3.7 % (0.0-5.0); HEMATOCRIT. 22.3 % (42.0-52.0); HEMOGLOBIN. 7.9 g/dL (14.0-18.0); LYMPHOCYTES % 17.1 % (20.0-50.0); MEAN CORPUSCULAR HEMOGLOBIN 34.8 pg (28.0-32.0); MEAN CORPUSCULAR VOLUME 98.8 fL (80.0-94.0); MEAN PLATELET VOLUME 7.8 fl (7.4-10.4); MONOCYTES % 13.6 % (2.0-8.0); NEUTROPHILS % 65.4 % (40.0-76.0); RED BLOOD CELL COUNT 2.26 mill/uL (4.7-6.1); RED CELL DISTRIBUTION WIDTH 19.2 % (11.6-14.6)
[2018-07-09 13:38] LABS: PHOSPHORUS 4.8 mg/dL (2.5-4.9)
[2018-07-09 13:49] LABS: PLATELET 30 x1000/uL (130-400)
[2018-07-09 16:00] VITALS: BP 125/80
[2018-07-09 20:00] VITALS: BP 128/63
[2018-07-10] VITALS: BP 122/77
[2018-07-10] MEDS: IPRATROPIUM BROMIDE (0.02%) 0.5MG/2.5ML NEB HHN SCH ×3 (02:25→21:52)
[2018-07-10 04:00] VITALS: BP 140/77
[2018-07-10] MEDS: PROPRANOLOL HCL 20MG TABLET PO SCH ×3 (05:31→22:37)
[2018-07-10 07:29] LABS: BASOPHILS % 0.5 % (0.0-2.0); MEAN CORPUSCULAR HEMOGLOBIN 34.7 pg (28.0-32.0); MEAN CORPUSCULAR VOLUME 98.2 fL (80.0-94.0); MEAN PLATELET VOLUME 7.5 fl (7.4-10.4); RED BLOOD CELL COUNT 2.12 mill/uL (4.7-6.1); RED CELL DISTRIBUTION WIDTH 18.9 % (11.6-14.6)
[2018-07-10 08:00] VITALS: BP 122/77
[2018-07-10 08:01] LABS: CHLORIDE 102 mEq/L (98-107)
[2018-07-10 08:02] LABS: HEMATOCRIT. 20.8 % (42.0-52.0); HEMOGLOBIN. 7.4 g/dL (14.0-18.0); PLATELET 34 x1000/uL (130-400)
[2018-07-10 08:03] LABS: EOSINOPHILS % 3.9 % (0.0-5.0); LYMPHOCYTES % 15.5 % (20.0-50.0); MONOCYTES % 14.7 % (2.0-8.0); NEUTROPHILS % 65.4 % (40.0-76.0)
[2018-07-10 08:10] LABS: PHOSPHORUS 4.5 mg/dL (2.5-4.9)
[2018-07-10] MEDS: CALCIUM ACETATE 667MG CAPSULE PO SCH ×3 (08:57→17:13)
[2018-07-10] MEDS: OLANZAPINE 5MG TABLET ODT PO SCH (08:57)
[2018-07-10 12:00] VITALS: BP 126/68
[2018-07-10 13:18] LABS: AMMONIA 121 uMol/L (<32)
[2018-07-10 14:53] LABS: PLATELET ESTIMATE MARKEDLY DECREASED
[2018-07-10] MEDS: LACTULOSE 20G/30ML UDC PO SCH ×2 (15:45→22:37)
[2018-07-10 16:00] VITALS: BP 120/66
[2018-07-10 20:00] VITALS: BP 148/80
[2018-07-11] VITALS (13 sets, daily range): BP systolic 106–151; BP diastolic 56–98
[2018-07-11] MEDS: IPRATROPIUM BROMIDE (0.02%) 0.5MG/2.5ML NEB HHN SCH ×4 (02:14→21:06)
[2018-07-11 06:24] LABS: HEMOGLOBIN. 7.3 g/dL (14.0-18.0); MEAN CORPUSCULAR VOLUME 96.6 fL (80.0-94.0); MEAN PLATELET VOLUME 8.2 fl (7.4-10.4); RED BLOOD CELL COUNT 2.07 mill/uL (4.7-6.1)
[2018-07-11] MEDS: LACTULOSE 20G/30ML UDC PO SCH ×4 (06:31→21:07)
[2018-07-11] MEDS: PROPRANOLOL HCL 20MG TABLET PO SCH ×3 (06:31→21:08)
[2018-07-11 07:19] LABS: PLATELET 44 x1000/uL (130-400)
[2018-07-11 07:25] LABS: PHOSPHORUS 4.1 mg/dL (2.5-4.9)
[2018-07-11] MEDS: OLANZAPINE 5MG TABLET ODT PO SCH ×3 (09:57→21:00)
[2018-07-11] MEDS: CALCITRIOL 0.25MCG CAPSULE PO SCH (09:57)
[2018-07-11 10:56] LABS: PLATELET ESTIMATE MARKEDLY DECREASED
[2018-07-11 23:31] LABS: HEMATOCRIT 25.6 % (42.0-52.0); HEMOGLOBIN 9.1 g/dL (14.0-18.0)
[2018-07-12 00:35] VITALS: BP 125/76
[2018-07-12] MEDS: IPRATROPIUM BROMIDE (0.02%) 0.5MG/2.5ML NEB HHN SCH ×4 (02:05→21:04)
[2018-07-12 04:00] VITALS: BP 141/62
[2018-07-12] MEDS: PROPRANOLOL HCL 20MG TABLET PO SCH ×4 (05:37→21:29)
[2018-07-12] MEDS: LACTULOSE 20G/30ML UDC PO SCH ×4 (05:38→21:29)
[2018-07-12 06:29] LABS: HEMOGLOBIN. 8.3 g/dL (14.0-18.0); MEAN CORPUSCULAR HEMOGLOBIN 33.7 pg (28.0-32.0); MEAN CORPUSCULAR VOLUME 92.9 fL (80.0-94.0); MEAN PLATELET VOLUME 7.7 fl (7.4-10.4); RED BLOOD CELL COUNT 2.47 mill/uL (4.7-6.1); RED CELL DISTRIBUTION WIDTH 20.2 % (11.6-14.6)
[2018-07-12 07:37] LABS: AMMONIA 20 uMol/L (<32)
[2018-07-12 08:00] VITALS: BP 116/86
[2018-07-12] MEDS: OLANZAPINE 5MG TABLET ODT PO SCH ×2 (08:24→21:29)
[2018-07-12 12:00] VITALS: BP 120/52
[2018-07-12 12:32] LABS: PLATELET ESTIMATE MARKEDLY DECREASED
[2018-07-12 12:57] LABS: PLATELET 40 x1000/uL (130-400)
[2018-07-12 16:00] VITALS: BP 142/79
[2018-07-12 20:00] VITALS: BP 125/59
[2018-07-13] VITALS: BP 139/74
[2018-07-13] MEDS: IPRATROPIUM BROMIDE (0.02%) 0.5MG/2.5ML NEB HHN SCH ×3 (01:22→20:18)
[2018-07-13 04:00] VITALS: BP 142/73
[2018-07-13] MEDS: PROPRANOLOL HCL 20MG TABLET PO SCH ×3 (05:35→21:00)
[2018-07-13] MEDS: LACTULOSE 20G/30ML UDC PO SCH ×2 (05:35→08:23)
[2018-07-13 06:55] LABS: BASOPHILS % 0.6 % (0.0-2.0); EOSINOPHILS % 3.7 % (0.0-5.0); HEMATOCRIT. 21.7 % (42.0-52.0); HEMOGLOBIN. 7.7 g/dL (14.0-18.0); LYMPHOCYTES % 16.2 % (20.0-50.0); MEAN CORPUSCULAR HEMOGLOBIN 33.4 pg (28.0-32.0); MEAN CORPUSCULAR VOLUME 93.7 fL (80.0-94.0); MEAN PLATELET VOLUME 7.6 fl (7.4-10.4); MONOCYTES % 14.9 % (2.0-8.0); NEUTROPHILS % 64.6 % (40.0-76.0); RED BLOOD CELL COUNT 2.32 mill/uL (4.7-6.1); RED CELL DISTRIBUTION WIDTH 20.4 % (11.6-14.6)
[2018-07-13 07:26] LABS: AMMONIA 31 uMol/L (<32)
[2018-07-13 08:00] VITALS: BP 150/73
[2018-07-13] MEDS: OLANZAPINE 5MG TABLET ODT PO SCH ×2 (08:23→20:59)
[2018-07-13] MEDS: CALCITRIOL 0.25MCG CAPSULE PO SCH (08:23)
[2018-07-13 09:19] LABS: PLATELET ESTIMATE MARKEDLY DECREASED
[2018-07-13 09:23] LABS: PLATELET 31 x1000/uL (130-400)
[2018-07-13 10:34] LABS: CHLORIDE 107 mEq/L (98-107)
[2018-07-13 10:40] LABS: PHOSPHORUS 4.8 mg/dL (2.5-4.9)
[2018-07-13 12:00] VITALS: BP 130/68
[2018-07-13 16:00] VITALS: BP 122/66
[2018-07-13 20:00] VITALS: BP 131/66
[2018-07-14] VITALS (12 sets, daily range): BP systolic 109–150; BP diastolic 55–73
[2018-07-14] MEDS: IPRATROPIUM BROMIDE (0.02%) 0.5MG/2.5ML NEB HHN SCH ×3 (01:14→13:48)
[2018-07-14] MEDS: PROPRANOLOL HCL 20MG TABLET PO SCH ×3 (05:55→21:03)
[2018-07-14 06:33] LABS: BASOPHILS % 0.3 % (0.0-2.0); HEMATOCRIT. 21.5 % (42.0-52.0); HEMOGLOBIN. 7.6 g/dL (14.0-18.0); LYMPHOCYTES % 12.4 % (20.0-50.0); MEAN CORPUSCULAR HEMOGLOBIN 33.4 pg (28.0-32.0); MEAN CORPUSCULAR VOLUME 93.9 fL (80.0-94.0); MEAN PLATELET VOLUME 7.2 fl (7.4-10.4); MONOCYTES % 13.8 % (2.0-8.0); NEUTROPHILS % 70.5 % (40.0-76.0); RED BLOOD CELL COUNT 2.29 mill/uL (4.7-6.1); RED CELL DISTRIBUTION WIDTH 20.2 % (11.6-14.6)
[2018-07-14 06:38] LABS: INR 2.1; PARTIAL THROMBOPLASTIN TIME 39.2 sec (23.4-31.0); PROTHROMBIN TIME 21.3 sec (9.1-11.1)
[2018-07-14 07:19] LABS: PLATELET 29 x1000/uL (130-400)
[2018-07-14 07:24] LABS: CHLORIDE 106 mEq/L (98-107)
[2018-07-14 07:32] LABS: PHOSPHORUS 5.1 mg/dL (2.5-4.9)
[2018-07-14] MEDS: LACTULOSE 20G/30ML UDC PO SCH (10:17)
[2018-07-14] MEDS: OLANZAPINE 5MG TABLET ODT PO SCH ×2 (10:17→21:03)
[2018-07-14] MEDS ORDERED: LIDOCAINE HCL 1% 20ML VIAL (Pyxis) INJ ONE (15:24)
[2018-07-14] MEDS ORDERED: SODIUM BICARBONATE 4% (2.4MEQ) 5ML VIAL IV ONE (15:24)
[2018-07-15] VITALS: BP 118/62
[2018-07-15] MEDS: IPRATROPIUM BROMIDE (0.02%) 0.5MG/2.5ML NEB HHN SCH ×3 (00:45→13:18)
[2018-07-15 04:00] VITALS: BP 115/73
[2018-07-15] MEDS: PROPRANOLOL HCL 20MG TABLET PO SCH ×2 (05:44→13:42)
[2018-07-15 06:49] LABS: HEMATOCRIT. 21.7 % (42.0-52.0); HEMOGLOBIN. 7.7 g/dL (14.0-18.0); MEAN CORPUSCULAR HEMOGLOBIN 33.5 pg (28.0-32.0); MEAN CORPUSCULAR VOLUME 94.5 fL (80.0-94.0); MEAN PLATELET VOLUME 8.1 fl (7.4-10.4); PLATELET 69 x1000/uL (130-400); RED BLOOD CELL COUNT 2.29 mill/uL (4.7-6.1); RED CELL DISTRIBUTION WIDTH 20.3 % (11.6-14.6)
[2018-07-15 07:58] LABS: CHLORIDE 106 mEq/L (98-107)
[2018-07-15 08:00] VITALS: BP 114/73
[2018-07-15] MEDS: CALCITRIOL 0.25MCG CAPSULE PO SCH (08:40)
[2018-07-15] MEDS: OLANZAPINE 5MG TABLET ODT PO SCH (08:42)
[2018-07-15] MEDS: LACTULOSE 20G/30ML UDC PO SCH (08:42)
[2018-07-15 09:26] LABS: PLATELET ESTIMATE DECREASED
[2018-07-15 12:00] VITALS: BP 105/60
[2018-07-15] MEDS ORDERED: LACT10SO7 PO (15:50)
[2018-07-15] MEDS ORDERED: CALC0.253 PO (15:50)
[2018-07-15 16:10] VITALS: BP 121/82
== END 2018-07-15 20:10 | DRG 720 ==
LOC: ER 20:40 → EDBD 22:10 → MICUNO 22:10 → EDBEDREQ 22:24 → EDBEDREQTM 22:24 → ENRESERV 22:44 → MICUSO 06-05 18:42 → 5EST 06-09 18:40 → 6WST 06-15 15:57 → 6EST 06-17 18:54 → 8WST 06-19 10:45
PROVIDERS: ADMIT Internal Medicine; ATTEND Internal Medicine
PROC: 30233L1 Transfusion of Nonautologous Fresh Plasma into Peripheral Vein, Percutaneous Approach (ICD-10-PCS; 2018-06-03)
PROC: 30233R1 Transfusion of Nonautologous Platelets into Peripheral Vein, Percutaneous Approach (ICD-10-PCS; 2018-06-03)
PROC: 30233K1 Transfusion of Nonautologous Frozen Plasma into Peripheral Vein, Percutaneous Approach (ICD-10-PCS; 2018-06-03)
PROC: 06HY33Z Insertion of Infusion Device into Lower Vein, Percutaneous Approach (ICD-10-PCS; 2018-06-06)
PROC: B54BZZA Ultrasonography of Right Lower Extremity Veins, Guidance (ICD-10-PCS; 2018-06-06)
PROC: 5A1D70Z Performance of Urinary Filtration, Intermittent, Less than 6 Hours Per Day (ICD-10-PCS; 2018-06-06)
PROC: 5A1D70Z Performance of Urinary Filtration, Intermittent, Less than 6 Hours Per Day (ICD-10-PCS; 2018-06-07)
PROC: 5A1D70Z Performance of Urinary Filtration, Intermittent, Less than 6 Hours Per Day (ICD-10-PCS; 2018-06-09)
PROC: 5A1D70Z Performance of Urinary Filtration, Intermittent, Less than 6 Hours Per Day (ICD-10-PCS; 2018-06-11)
PROC: 5A1D70Z Performance of Urinary Filtration, Intermittent, Less than 6 Hours Per Day (ICD-10-PCS; 2018-06-13)
PROC: 5A1D70Z Performance of Urinary Filtration, Intermittent, Less than 6 Hours Per Day (ICD-10-PCS; 2018-06-15)
PROC: 5A1D70Z Performance of Urinary Filtration, Intermittent, Less than 6 Hours Per Day (ICD-10-PCS; 2018-06-19)
PROC: 0JH63XZ Insertion of Tunneled Vascular Access Device into Chest Subcutaneous Tissue and Fascia, Percutaneous Approach (ICD-10-PCS; 2018-06-20)
PROC: 02H633Z Insertion of Infusion Device into Right Atrium, Percutaneous Approach (ICD-10-PCS; 2018-06-20)
PROC: B2141ZZ Fluoroscopy of Right Heart using Low Osmolar Contrast (ICD-10-PCS; 2018-06-20)
PROC: 0W9G3ZZ Drainage of Peritoneal Cavity, Percutaneous Approach (ICD-10-PCS; 2018-06-20)
PROC: 30233N1 Transfusion of Nonautologous Red Blood Cells into Peripheral Vein, Percutaneous Approach (ICD-10-PCS; 2018-06-21)
PROC: 5A1D70Z Performance of Urinary Filtration, Intermittent, Less than 6 Hours Per Day (ICD-10-PCS; 2018-06-21)
PROC: 0DJ08ZZ Inspection of Upper Intestinal Tract, Via Natural or Artificial Opening Endoscopic (ICD-10-PCS; 2018-06-22)
PROC: 5A1D70Z Performance of Urinary Filtration, Intermittent, Less than 6 Hours Per Day (ICD-10-PCS; 2018-06-23)
PROC: 5A1D70Z Performance of Urinary Filtration, Intermittent, Less than 6 Hours Per Day (ICD-10-PCS; 2018-06-28)
PROC: 5A1D70Z Performance of Urinary Filtration, Intermittent, Less than 6 Hours Per Day (ICD-10-PCS; 2018-06-30)
PROC: 5A1D70Z Performance of Urinary Filtration, Intermittent, Less than 6 Hours Per Day (ICD-10-PCS; 2018-07-02)
PROC: 5A1D70Z Performance of Urinary Filtration, Intermittent, Less than 6 Hours Per Day (ICD-10-PCS; principal; 2018-07-05)
PROC: 05PYX3Z Removal of Infusion Device from Upper Vein, External Approach (ICD-10-PCS; 2018-07-14)
DX: A41.59 Other Gram-negative sepsis (principal); D65 Disseminated intravascular coagulation [defibrination syndrome]; I21.4 Non-ST elevation (NSTEMI) myocardial infarction; J69.0 Pneumonitis due to inhalation of food and vomit; J96.01 Acute respiratory failure with hypoxia; E43 Unspecified severe protein-calorie malnutrition; K76.7 Hepatorenal syndrome; G92 Toxic encephalopathy; D61.818 Other pancytopenia; K83.1 Obstruction of bile duct; I27.20 Pulmonary hypertension, unspecified; E83.39 Other disorders of phosphorus metabolism; N17.0 Acute kidney failure with tubular necrosis; K76.6 Portal hypertension; D68.4 Acquired coagulation factor deficiency; I12.9 Hypertensive chronic kidney disease with stage 1 through stage 4 chronic kidney disease, or unspecified chronic kidney disease; K72.90 Hepatic failure, unspecified without coma; R65.20 Severe sepsis without septic shock; E87.3 Alkalosis; D63.8 Anemia in other chronic diseases classified elsewhere; E83.51 Hypocalcemia; E87.5 Hyperkalemia; E87.6 Hypokalemia; I34.0 Nonrheumatic mitral (valve) insufficiency; N12 Tubulo-interstitial nephritis, not specified as acute or chronic; K44.9 Diaphragmatic hernia without obstruction or gangrene; N18.9 Chronic kidney disease, unspecified; K75.0 Abscess of liver; R31.0 Gross hematuria; F10.129 Alcohol abuse with intoxication, unspecified; L89.620 Pressure ulcer of left heel, unstageable; L89.610 Pressure ulcer of right heel, unstageable; L84 Corns and callosities; N50.89 Other specified disorders of the male genital organs; B96.1 Klebsiella pneumoniae [K. pneumoniae] as the cause of diseases classified elsewhere; K31.89 Other diseases of stomach and duodenum; T51.0X1A Toxic effect of ethanol, accidental (unintentional), initial encounter; M62.82 Rhabdomyolysis; E88.09 Other disorders of plasma-protein metabolism, not elsewhere classified; K70.31 Alcoholic cirrhosis of liver with ascites; K70.11 Alcoholic hepatitis with ascites; I85.11 Secondary esophageal varices with bleeding; Z78.1 Physical restraint status; Z68.28 Body mass index [BMI] 28.0-28.9, adult
CPT/HCPCS: 12001; 36415; 36556; 36558; 36589; 36600; 49083; 70450; 70551; 71045; 71250; 74176; 76700; 76705; 76870; 76937; 77001; 80048; 80053; 80061; 80076; 80150; 80202; 80305; 81003; 82040; 82105; 82140; 82248; 82270; 82330; 82375; 82550; 82553; 82607; 82728; 82746; 82784; 82805; 82962; 83540; 83550; 83605; 83615; 83690; 83735; 83880; 84100; 84134; 84145; 84300; 84439; 84443; 84481; 84484; 85014; 85018; 85025; 85027; 85049; 85384; 85610; 85730; 86334; 86705; 86709; 86803; 86850; 86900; 86920; 86927; 86945; 87040; 87070; 87077; 87086; 87186; 87205; 87340; 87389; 88108; 88312; 89050; 92610; 93005; 93306; 93970; 93976; 94640; 97110; 97116; 97162; 97164; 97166; 97530; 99291; A4216; A6261; C1750; C1752; C1893; C9113; G0482; J0278; J0456; J0610; J0636; J0690; J0692; J1170; J1200; J1642; J1644; J1940; J1956; J2060; J2185; J2250; J2354; J2370; J2543; J2597; J3010; J3370; J3411; J3430; J3475; J3480; J3490; J7030; J7040; J7042; J7050; J7060; J7611; J7620; P9016; P9017; P9034; P9047; A4315

== ENCOUNTER 2018-07-18 11:01 | Inpatient (IN) | payer MEDICAID ==
[2018-07-18] VITALS (23 sets, daily range): BP systolic 87–146; BP diastolic 50–87
[~2018-07-18] VITALS: Ht 167.6 cm; Wt 97.5 kg
[~2018-07-18 11:01] MED LIST: CALC0.253 PO; LACT10SO7 PO
[2018-07-18] MEDS ORDERED: ATROVENT (11:11)
[2018-07-18] MEDS ORDERED: SODIUM CHLORIDE 0.9% 1,000 ML IV ONE (11:11)
[2018-07-18] MEDS ORDERED: CALC0.5C10 PO (11:11)
[2018-07-18] MEDS ORDERED: PROP20TA19 GT (11:11)
[2018-07-18] MEDS ORDERED: MIDAZOLAM HCL 50 MG in DEXTROSE 5% WATER 40 ML IV ONE (11:15)
[2018-07-18] MEDS ORDERED: ETOMIDATE 2MG/ML 10ML VIAL IV ONE ×2 (11:15→13:56)
[2018-07-18] MEDS ORDERED: SUCCINYLCHOLINE CHLORIDE 200MG/10ML IV ONE ×2 (11:15→13:56)
[2018-07-18 11:33] LABS: BASOPHILS % 1.1 % (0.0-2.0); EOSINOPHILS % 2.7 % (0.0-5.0); HEMOGLOBIN. 7.1 g/dL (14.0-18.0); LYMPHOCYTES % 20.7 % (20.0-50.0); MEAN CORPUSCULAR HEMOGLOBIN 32.9 pg (28.0-32.0); MEAN CORPUSCULAR VOLUME 94.4 fL (80.0-94.0); MEAN PLATELET VOLUME 8.5 fl (7.4-10.4); MONOCYTES % 12.3 % (2.0-8.0); NEUTROPHILS % 63.2 % (40.0-76.0); PLATELET 57 x1000/uL (130-400); RED BLOOD CELL COUNT 2.14 mill/uL (4.7-6.1); RED CELL DISTRIBUTION WIDTH 20.9 % (11.6-14.6)
[2018-07-18 11:45] LABS: HEMATOCRIT. 20.2 % (42.0-52.0)
[2018-07-18] MEDS ORDERED: LORAZEPAM 2MG/ML CPJ IV ONE (11:45)
[2018-07-18 11:52] LABS: BG CARBOXYHEMOGLOBIN 0.2 % (0.5-1.5); BG DEOXYHEMOGLOBIN 0.3 % (0.0-5.0); BG FRACTION INSPIRED OXYGEN 100; BG HCO3 ACT 21.2 mmol/L (22.0-26.0); BG METHEMOGLOBIN 0.5 % (0.0-1.5); BG OXYGEN SATURATION 99.7 % (92.0-98.5); BG PCO2 25.8 mmHg (35.0-45.0); BG PH 7.533 (7.350-7.450); BG PO2 559.8 mmHg (75.0-100.0); BG SAMPLE SITE RIGHT RADIAL; BG TIDAL VOLUME(mL) 500 mL; BG TOTAL HEMOGLOBIN 7.5 g/dL (12.0-18.0); BG VENT MODE VENT - A/C; BG VENT RATE 12 set
[2018-07-18 12:00] LABS: PARTIAL THROMBOPLASTIN TIME 31.1 sec (23.4-31.0)
[2018-07-18 12:01] LABS: PROTHROMBIN TIME > 100.0 sec (9.1-11.1)
[2018-07-18 12:02] LABS: INR > 10.0
[2018-07-18 12:04] LABS: CHLORIDE 105 mEq/L (98-107); ETHANOL BLOOD < 10 mg/dL
[2018-07-18 12:30] LABS: CLARITY URINE CLOUDY (CLEAR); COLOR URINE YELLOW (YELLOW); KETONES URINE NEGATIVE (NEGATIVE); LEUKOCYTE ESTERASE URINE TRACE (NEGATIVE); NITRITE URINE NEGATIVE (NEGATIVE); OCCULT BLOOD URINE NEGATIVE (NEGATIVE); PROTEIN URINE NEGATIVE (NEGATIVE); SPECIFIC GRAVITY URINE 1.008 (1.005-1.030)
[2018-07-18] MEDS ORDERED: PHYTONADIONE 10MG/ML AMP IM ONE (12:30)
[2018-07-18 12:43] LABS: *AMPHETAMINES SCREEN URINE NEGATIVE (NEGATIVE); *BARBITURATES SCREEN URINE NEGATIVE (NEGATIVE); *BENZODIAZEPINES SCREEN URINE NEGATIVE (NEGATIVE); *COCAINE SCREEN URINE NEGATIVE (NEGATIVE)
[2018-07-18 12:44] LABS: CANNABINOID URINE SCREEN NEGATIVE (NEGATIVE); METHADONE URINE SCREEN NEGATIVE (NEGATIVE); OPIATES URINE SCREEN NEGATIVE (NEGATIVE); PHENCYCLIDINE URINE SCREEN NEGATIVE (NEGATIVE)
[2018-07-18] MEDS ORDERED: ACETAMINOPHEN 325MG TABLET PO PRN (13:00)
[2018-07-18] MEDS ORDERED: ACETAMINOPHEN 650MG/20.3ML UDC GT PRN (13:00)
[2018-07-18] MEDS ORDERED: ACETAMINOPHEN 650MG SUPP PR PRN (13:00)
[2018-07-18] MEDS ORDERED: IPRATROPIUM/ALBUTEROL 0.5-3(2.5)MG/3ML NEB HHN PRN (14:00)
[2018-07-18] MEDS ORDERED: PIPERACILLIN/TAZ 3.375G PREMIX 50 ML IV SCH (14:00)
[2018-07-18] MEDS: IPRATROPIUM/ALBUTEROL 0.5-3(2.5)MG/3ML NEB HHN SCH ×2 (15:25→20:23)
[2018-07-18] MEDS: LACTULOSE 20G/30ML UDC PO SCH ×2 (15:41→21:25)
[2018-07-18] MEDS: DEXT 5%/0.9% NACL 1,000 ML IV SCH (15:41)
[2018-07-18] MEDS: PIPERACILLIN/TAZ 2.25G PREMIX 50 ML IV SCH ×2 (17:00→21:25)
[2018-07-18] MEDS: PANTOPRAZOLE SODIUM 40 MG/VIAL IV SCH (17:38)
[2018-07-18 17:42] LABS: CREATINE KINASE MB FRACTION 1.9 ng/mL (0.5-3.6)
[2018-07-18] MEDS: RIFAXIMIN 550 MG TABLET PO SCH (21:25)
[2018-07-19] VITALS (40 sets, daily range): BP systolic 106–159; BP diastolic 54–101
[2018-07-19 00:32] LABS: HEMOGLOBIN 7.3 g/dL (14.0-18.0)
[2018-07-19] MEDS: IPRATROPIUM/ALBUTEROL 0.5-3(2.5)MG/3ML NEB HHN SCH ×6 (00:36→20:03)
[2018-07-19 00:37] LABS: HEMATOCRIT 20.9 % (42.0-52.0)
[2018-07-19] MEDS: DEXT 5%/0.9% NACL 1,000 ML IV SCH (00:45)
[2018-07-19 00:57] LABS: INR 1.7; PARTIAL THROMBOPLASTIN TIME 33.1 sec (23.4-31.0); PROTHROMBIN TIME 17.1 sec (9.1-11.1)
[2018-07-19 06:13] LABS: MEAN CORPUSCULAR VOLUME 95.2 fL (80.0-94.0); MEAN PLATELET VOLUME 7.9 fl (7.4-10.4); RED BLOOD CELL COUNT 1.89 mill/uL (4.7-6.1); RED CELL DISTRIBUTION WIDTH 20.7 % (11.6-14.6)
[2018-07-19 06:44] LABS: HEMOGLOBIN. 6.4 g/dL (14.0-18.0); INR 1.8; PLATELET 45 x1000/uL (130-400); PROTHROMBIN TIME 17.8 sec (9.1-11.1)
[2018-07-19] MEDS: LACTULOSE 20G/30ML UDC PO SCH ×3 (06:45→23:31)
[2018-07-19] MEDS: PIPERACILLIN/TAZ 2.25G PREMIX 50 ML IV SCH (06:45)
[2018-07-19 06:56] LABS: CHLORIDE 108 mEq/L (98-107)
[2018-07-19 07:30] LABS: AMYLASE 138 IU/L (25-115); HDL CHOLESTEROL 21 mg/dL (40-59); LDL CHOLESTEROL 69 mg/dL (5-100); PHOSPHORUS 4.1 mg/dL (2.5-4.9)
[2018-07-19 07:49] LABS: PLATELET ESTIMATE MARKEDLY DECREASED
[2018-07-19] MEDS ORDERED: LIDOCAINE HCL 1% 20ML VIAL (Pyxis) INJ ONE (07:49)
[2018-07-19 08:03] LABS: BG BASE EXCESS 1.9 mmol/L (-2.0-2.0); BG CARBOXYHEMOGLOBIN 0.2 % (0.5-1.5); BG DEOXYHEMOGLOBIN 1.3 % (0.0-5.0); BG FRACTION INSPIRED OXYGEN 40; BG HCO3 ACT 24.1 mmol/L (22.0-26.0); BG METHEMOGLOBIN 1.1 % (0.0-1.5); BG OXYGEN SATURATION 98.7 % (92.0-98.5); BG OXYHEMOGLOBIN 97.4 % (94.0-97.0); BG PCO2 26.7 mmHg (35.0-45.0); BG PH 7.573 (7.350-7.450); BG PO2 138.9 mmHg (75.0-100.0); BG SAMPLE SITE RIGHT RADIAL; BG TIDAL VOLUME(mL) 500 mL; BG TOTAL HEMOGLOBIN 5.8 g/dL (12.0-18.0); BG VENT MODE VENT - A/C; BG VENT RATE 12 set
[2018-07-19] MEDS: PANTOPRAZOLE SODIUM 40 MG/VIAL IV SCH (10:08)
[2018-07-19] MEDS: DEXT 5%/0.45% NACL KCL 10MEQ/L 1,000 ML IV SCH (10:08)
[2018-07-19] MEDS: RIFAXIMIN 550 MG TABLET PO SCH ×2 (10:08→21:00)
[2018-07-19] MEDS: METRONIDAZOLE 500 MG PREMIX 100 ML IV SCH ×2 (14:01→21:01)
[2018-07-19] MEDS: CEFEPIME 1,000 MG in DEXTROSE 5% WATER 50 ML IV SCH (14:02)
[2018-07-19 17:17] LABS: HEMATOCRIT 23.1 % (42.0-52.0); HEMOGLOBIN 8.1 g/dL (14.0-18.0)
[2018-07-19 17:40] LABS: T4 FREE 1.56 ng/dL (0.76-1.46)
[2018-07-19 18:28] LABS: FOLIC ACID (FOLATE) SERUM >20 ng/mL ng/mL (>5.38); VITAMIN B12 SERUM >2000 pg/mL pg/mL (211-911)
[2018-07-19] MEDS: MULTIVITAMINS,THER W-MINERALS TABLET PO SCH (19:07)
[2018-07-19] MEDS: FOLIC ACID 1MG TABLET PO SCH (19:07)
[2018-07-19] MEDS: LEVETIRACETAM 500 MG in SODIUM CHLORIDE 0.9% 100 ML IV SCH (19:08)
[2018-07-19] MEDS: THIAMINE HCL 100MG TABLET PO SCH (19:10)
[2018-07-19 23:01] LABS: HEMATOCRIT 22.2 % (42.0-52.0); HEMOGLOBIN 7.7 g/dL (14.0-18.0)
[2018-07-20] VITALS (33 sets, daily range): BP systolic 86–172; BP diastolic 49–108
[2018-07-20] MEDS: IPRATROPIUM/ALBUTEROL 0.5-3(2.5)MG/3ML NEB HHN SCH ×7 (00:27→20:18)
[2018-07-20] MEDS: CEFEPIME 1,000 MG in DEXTROSE 5% WATER 50 ML IV SCH ×2 (01:32→13:00)
[2018-07-20] MEDS: DEXT 5%/0.45% NACL KCL 10MEQ/L 1,000 ML IV SCH ×2 (01:32→18:28)
[2018-07-20] MEDS: LORAZEPAM 2MG/ML CPJ IV PRN ×3 (01:34→20:47)
[2018-07-20] MEDS: LACTULOSE 20G/30ML UDC PO SCH ×3 (05:35→21:50)
[2018-07-20] MEDS: METRONIDAZOLE 500 MG PREMIX 100 ML IV SCH ×3 (05:35→20:35)
[2018-07-20 06:07] LABS: BASOPHILS % 0.3 % (0.0-2.0); EOSINOPHILS % 2.4 % (0.0-5.0); HEMATOCRIT. 21.9 % (42.0-52.0); HEMOGLOBIN. 7.8 g/dL (14.0-18.0); LYMPHOCYTES % 12.2 % (20.0-50.0); MEAN CORPUSCULAR HEMOGLOBIN 33.5 pg (28.0-32.0); MEAN CORPUSCULAR VOLUME 94.5 fL (80.0-94.0); MEAN PLATELET VOLUME 7.5 fl (7.4-10.4); MONOCYTES % 14.7 % (2.0-8.0); NEUTROPHILS % 70.4 % (40.0-76.0); RED BLOOD CELL COUNT 2.32 mill/uL (4.7-6.1); RED CELL DISTRIBUTION WIDTH 19.9 % (11.6-14.6)
[2018-07-20 08:07] LABS: BG BASE EXCESS -0.9 mmol/L (-2.0-2.0); BG CARBOXYHEMOGLOBIN 0.7 % (0.5-1.5); BG HCO3 ACT 21.3 mmol/L (22.0-26.0); BG METHEMOGLOBIN 0.7 % (0.0-1.5); BG OXYHEMOGLOBIN 97.6 % (94.0-97.0); BG PCO2 26.2 mmHg (35.0-45.0); BG PH 7.528 (7.350-7.450); BG PO2 176.1 mmHg (75.0-100.0); BG SAMPLE SITE RIGHT RADIAL; BG TIDAL VOLUME(mL) 500 mL; BG TOTAL HEMOGLOBIN 7.9 g/dL (12.0-18.0); BG VENT MODE VENT - A/C; BG VENT RATE 12 set
[2018-07-20] MEDS: RIFAXIMIN 550 MG TABLET PO SCH ×2 (08:51→20:35)
[2018-07-20] MEDS: PANTOPRAZOLE SODIUM 40 MG/VIAL IV SCH (08:51)
[2018-07-20] MEDS: FOLIC ACID 1MG TABLET PO SCH (08:51)
[2018-07-20] MEDS: THIAMINE HCL 100MG TABLET PO SCH (08:51)
[2018-07-20] MEDS: MULTIVITAMINS,THER W-MINERALS TABLET PO SCH (08:51)
[2018-07-20] MEDS: LEVETIRACETAM 500 MG in SODIUM CHLORIDE 0.9% 100 ML IV SCH ×2 (09:18→21:50)
[2018-07-20 10:59] LABS: PLATELET ESTIMATE MARKEDLY DECREASED
[2018-07-20 11:02] LABS: PLATELET 41 x1000/uL (130-400)
[2018-07-20 15:14] LABS: HEMATOCRIT 21.3 % (42.0-52.0); HEMOGLOBIN 7.5 g/dL (14.0-18.0)
[2018-07-20] MEDS: ONDANSETRON HCL 4MG/2ML INJ IV PRN (23:59)
[2018-07-21] VITALS (27 sets, daily range): BP systolic 132–168; BP diastolic 75–104
[2018-07-21] MEDS: IPRATROPIUM/ALBUTEROL 0.5-3(2.5)MG/3ML NEB HHN SCH ×6 (00:04→20:44)
[2018-07-21] MEDS: CEFEPIME 1,000 MG in DEXTROSE 5% WATER 50 ML IV SCH ×2 (00:56→13:14)
[2018-07-21] MEDS: METRONIDAZOLE 500 MG PREMIX 100 ML IV SCH ×3 (04:55→20:42)
[2018-07-21 05:54] LABS: INR 2.2; PROTHROMBIN TIME 22.3 sec (9.1-11.1)
[2018-07-21 05:56] LABS: BASOPHILS % 0.3 % (0.0-2.0); EOSINOPHILS % 4.6 % (0.0-5.0); HEMOGLOBIN. 7.2 g/dL (14.0-18.0); LYMPHOCYTES % 15.6 % (20.0-50.0); MEAN CORPUSCULAR HEMOGLOBIN 33.5 pg (28.0-32.0); MEAN CORPUSCULAR VOLUME 95.9 fL (80.0-94.0); MEAN PLATELET VOLUME 7.8 fl (7.4-10.4); MONOCYTES % 12.6 % (2.0-8.0); NEUTROPHILS % 66.9 % (40.0-76.0); RED BLOOD CELL COUNT 2.13 mill/uL (4.7-6.1); RED CELL DISTRIBUTION WIDTH 19.7 % (11.6-14.6)
[2018-07-21 06:03] LABS: CHLORIDE 116 mEq/L (98-107)
[2018-07-21 06:10] LABS: PHOSPHORUS 3.4 mg/dL (2.5-4.9)
[2018-07-21 06:18] LABS: HEMATOCRIT. 20.5 % (42.0-52.0); PLATELET 28 x1000/uL (130-400)
[2018-07-21] MEDS: LACTULOSE 20G/30ML UDC PO SCH ×2 (06:30→17:09)
[2018-07-21] MEDS: RIFAXIMIN 550 MG TABLET PO SCH ×2 (08:14→20:42)
[2018-07-21] MEDS: PANTOPRAZOLE SODIUM 40 MG/VIAL IV SCH (08:14)
[2018-07-21] MEDS: MULTIVITAMINS,THER W-MINERALS TABLET PO SCH (08:14)
[2018-07-21] MEDS: THIAMINE HCL 100MG TABLET PO SCH (08:14)
[2018-07-21] MEDS: FOLIC ACID 1MG TABLET PO SCH (08:14)
[2018-07-21] MEDS: LEVETIRACETAM 500 MG in SODIUM CHLORIDE 0.9% 100 ML IV SCH ×2 (08:14→20:42)
[2018-07-21 10:55] LABS: BG BASE EXCESS -5.1 mmol/L (-2.0-2.0); BG CARBOXYHEMOGLOBIN 0.3 % (0.5-1.5); BG DEOXYHEMOGLOBIN 1.7 % (0.0-5.0); BG FRACTION INSPIRED OXYGEN 35; BG HCO3 ACT 18.1 mmol/L (22.0-26.0); BG METHEMOGLOBIN 0.4 % (0.0-1.5); BG OXYGEN SATURATION 98.3 % (92.0-98.5); BG OXYHEMOGLOBIN 97.6 % (94.0-97.0); BG PCO2 26.2 mmHg (35.0-45.0); BG PH 7.457 (7.350-7.450); BG PO2 140.9 mmHg (75.0-100.0); BG PRESSURE SUPPORT 8; BG SAMPLE SITE LEFT RADIAL; BG TOTAL HEMOGLOBIN 7.2 g/dL (12.0-18.0); BG VENT MODE VENT - CPAP
[2018-07-21] MEDS: DEXT 5%/0.45% NACL KCL 10MEQ/L 1,000 ML IV SCH (11:00)
[2018-07-21] MEDS ORDERED: KCL 20MEQ/100ML PREMIX 100 ML IV NR (11:30)
[2018-07-21] MEDS: DEXT 5%/0.45% NACL KCL 20MEQ/L 1,000 ML IV SCH (13:13)
[2018-07-21 14:30] LABS: HEMATOCRIT 21.2 % (42.0-52.0); HEMOGLOBIN 7.4 g/dL (14.0-18.0)
[2018-07-21] MEDS: LORAZEPAM 2MG/ML CPJ IV PRN (20:21)
[2018-07-21] MEDS: HALOPERIDOL LACTATE 5MG/ML VIAL IM PRN (23:21)
[2018-07-22] VITALS (43 sets, daily range): BP systolic 84–180; BP diastolic 49–93
[2018-07-22] MEDS: IPRATROPIUM/ALBUTEROL 0.5-3(2.5)MG/3ML NEB HHN SCH ×6 (01:15→20:31)
[2018-07-22] MEDS: CEFEPIME 1,000 MG in DEXTROSE 5% WATER 50 ML IV SCH ×2 (01:59→14:45)
[2018-07-22] MEDS: METRONIDAZOLE 500 MG PREMIX 100 ML IV SCH ×3 (05:01→22:25)
[2018-07-22] MEDS: DEXT 5%/0.45% NACL KCL 20MEQ/L 1,000 ML IV SCH (05:01)
[2018-07-22 05:12] LABS: BASOPHILS % 0.5 % (0.0-2.0); EOSINOPHILS % 4.5 % (0.0-5.0); LYMPHOCYTES % 15.2 % (20.0-50.0); MEAN CORPUSCULAR HEMOGLOBIN 33.2 pg (28.0-32.0); MEAN CORPUSCULAR VOLUME 93.3 fL (80.0-94.0); MEAN PLATELET VOLUME 8.2 fl (7.4-10.4); MONOCYTES % 13.4 % (2.0-8.0); NEUTROPHILS % 66.4 % (40.0-76.0); RED BLOOD CELL COUNT 2.11 mill/uL (4.7-6.1); RED CELL DISTRIBUTION WIDTH 19.8 % (11.6-14.6)
[2018-07-22 05:20] LABS: CHLORIDE 119 mEq/L (98-107)
[2018-07-22 05:21] LABS: HEMATOCRIT. 19.7 % (42.0-52.0); PLATELET 32 x1000/uL (130-400)
[2018-07-22 05:28] LABS: AMYLASE 300 IU/L (25-115); PHOSPHORUS 3.5 mg/dL (2.5-4.9)
[2018-07-22] MEDS: FOLIC ACID 1MG TABLET PO SCH (09:36)
[2018-07-22] MEDS: LACTULOSE 20G/30ML UDC PO SCH ×2 (09:36→19:25)
[2018-07-22] MEDS: LEVETIRACETAM 500 MG in SODIUM CHLORIDE 0.9% 100 ML IV SCH ×2 (09:36→22:25)
[2018-07-22] MEDS: RIFAXIMIN 550 MG TABLET PO SCH ×2 (09:36→22:26)
[2018-07-22] MEDS: MULTIVITAMINS,THER W-MINERALS TABLET PO SCH (09:36)
[2018-07-22] MEDS: THIAMINE HCL 100MG TABLET PO SCH (09:36)
[2018-07-22] MEDS: PANTOPRAZOLE SODIUM 40 MG/VIAL IV SCH (09:36)
[2018-07-22] MEDS: LORAZEPAM 2MG/ML CPJ IV PRN (12:39)
[2018-07-22] MEDS: DEXT 5% WATER + KCL 20MEQ/L 1,000 ML IV SCH (14:46)
[2018-07-22] MEDS: OCTREOTIDE 1,000 MCG in SODIUM CHLORIDE 0.9% 98 ML IV SCH (19:27)
[2018-07-22 23:35] LABS: HEMATOCRIT 24.3 % (42.0-52.0); HEMOGLOBIN 8.5 g/dL (14.0-18.0)
[2018-07-23] VITALS (60 sets, daily range): BP systolic 95–171; BP diastolic 54–125
[2018-07-23] MEDS: CEFEPIME 1,000 MG in DEXTROSE 5% WATER 50 ML IV SCH ×2 (00:28→11:09)
[2018-07-23] MEDS: IPRATROPIUM/ALBUTEROL 0.5-3(2.5)MG/3ML NEB HHN SCH ×5 (00:49→19:46)
[2018-07-23] MEDS: LORAZEPAM 2MG/ML CPJ IV PRN ×2 (01:06→08:15)
[2018-07-23] MEDS: HALOPERIDOL LACTATE 5MG/ML VIAL IM PRN ×2 (01:24→10:31)
[2018-07-23] MEDS: METRONIDAZOLE 500 MG PREMIX 100 ML IV SCH ×3 (05:29→20:22)
[2018-07-23] MEDS: DEXT 5% WATER + KCL 20MEQ/L 1,000 ML IV SCH (05:30)
[2018-07-23 05:36] LABS: BASOPHILS % 0.5 % (0.0-2.0); EOSINOPHILS % 4.3 % (0.0-5.0); HEMATOCRIT. 25.2 % (42.0-52.0); HEMOGLOBIN. 8.8 g/dL (14.0-18.0); LYMPHOCYTES % 13.7 % (20.0-50.0); MEAN CORPUSCULAR VOLUME 91.9 fL (80.0-94.0); MEAN PLATELET VOLUME 7.9 fl (7.4-10.4); MONOCYTES % 12.5 % (2.0-8.0); RED BLOOD CELL COUNT 2.75 mill/uL (4.7-6.1); RED CELL DISTRIBUTION WIDTH 18.6 % (11.6-14.6)
[2018-07-23 05:46] LABS: CHLORIDE 118 mEq/L (98-107)
[2018-07-23 05:54] LABS: PHOSPHORUS 3.9 mg/dL (2.5-4.9)
[2018-07-23 07:07] LABS: PLATELET 21 x1000/uL (130-400)
[2018-07-23] MEDS: OCTREOTIDE 1,000 MCG in SODIUM CHLORIDE 0.9% 98 ML IV SCH (07:36)
[2018-07-23] MEDS: LEVETIRACETAM 500 MG in SODIUM CHLORIDE 0.9% 100 ML IV SCH ×2 (08:11→21:24)
[2018-07-23] MEDS: LACTULOSE 20G/30ML UDC PO SCH ×2 (08:11→15:56)
[2018-07-23] MEDS: PANTOPRAZOLE SODIUM 40 MG/VIAL IV SCH (08:12)
[2018-07-23] MEDS: MULTIVITAMINS,THER W-MINERALS TABLET PO SCH (08:12)
[2018-07-23] MEDS: FOLIC ACID 1MG TABLET PO SCH (08:12)
[2018-07-23] MEDS: THIAMINE HCL 100MG TABLET PO SCH (08:12)
[2018-07-23] MEDS: RIFAXIMIN 550 MG TABLET PO SCH ×2 (08:12→21:24)
[2018-07-23 13:22] LABS: INR 2.3; PROTHROMBIN TIME 22.7 sec (9.1-11.1)
[2018-07-23] MEDS: ACETYLCYSTEINE 100MG/ML 10% VIAL 4ML INH SCH (13:48)
[2018-07-24] VITALS (42 sets, daily range): BP systolic 91–152; BP diastolic 47–104
[2018-07-24] MEDS: ACETYLCYSTEINE 100MG/ML 10% VIAL 4ML INH SCH ×3 (00:59→15:43)
[2018-07-24] MEDS: IPRATROPIUM/ALBUTEROL 0.5-3(2.5)MG/3ML NEB HHN SCH ×7 (00:59→22:00)
[2018-07-24] MEDS: CEFEPIME 1,000 MG in DEXTROSE 5% WATER 50 ML IV SCH ×2 (01:18→12:15)
[2018-07-24] MEDS: OCTREOTIDE 1,000 MCG in SODIUM CHLORIDE 0.9% 98 ML IV SCH ×2 (03:59→22:34)
[2018-07-24] MEDS: METRONIDAZOLE 500 MG PREMIX 100 ML IV SCH ×3 (04:54→20:20)
[2018-07-24 05:36] LABS: HEMATOCRIT. 23.7 % (42.0-52.0); HEMOGLOBIN. 8.1 g/dL (14.0-18.0); MEAN CORPUSCULAR VOLUME 93.8 fL (80.0-94.0); MEAN PLATELET VOLUME 7.8 fl (7.4-10.4); RED BLOOD CELL COUNT 2.53 mill/uL (4.7-6.1); RED CELL DISTRIBUTION WIDTH 19.3 % (11.6-14.6)
[2018-07-24] MEDS: LORAZEPAM 2MG/ML CPJ IV PRN ×2 (05:53→20:08)
[2018-07-24] MEDS: HALOPERIDOL LACTATE 5MG/ML VIAL IM PRN ×2 (05:53→20:10)
[2018-07-24 07:52] LABS: PLATELET 18 x1000/uL (130-400); PLATELET ESTIMATE MARKEDLY DECREASED
[2018-07-24] MEDS: THIAMINE HCL 100MG TABLET PO SCH (08:00)
[2018-07-24] MEDS: FOLIC ACID 1MG TABLET PO SCH (08:00)
[2018-07-24] MEDS: LACTULOSE 20G/30ML UDC PO SCH ×2 (08:00→16:17)
[2018-07-24] MEDS: RIFAXIMIN 550 MG TABLET PO SCH ×2 (08:00→20:20)
[2018-07-24] MEDS: PANTOPRAZOLE SODIUM 40 MG/VIAL IV SCH (08:00)
[2018-07-24] MEDS: DEXT 5% WATER + KCL 20MEQ/L 1,000 ML IV SCH ×2 (08:00→12:59)
[2018-07-24] MEDS: LEVETIRACETAM 500 MG in SODIUM CHLORIDE 0.9% 100 ML IV SCH ×2 (08:00→22:36)
[2018-07-24] MEDS: MULTIVITAMINS,THER W-MINERALS TABLET PO SCH (08:00)
[2018-07-24] MEDS ORDERED: MAGNESIUM 2 G PREMIX 50 ML IV ONE (08:45)
[2018-07-24] MEDS ORDERED: MAGNESIUM SULFATE 2 GM in DEXTROSE 5% WATER 46 ML IV SCH (10:00)
[2018-07-24] MEDS: QUETIAPINE FUMARATE 25MG TABLET PO SCH (11:05)
[2018-07-24] MEDS: ONDANSETRON HCL 4MG/2ML INJ IV PRN (20:19)
[2018-07-25] VITALS (51 sets, daily range): BP systolic 85–164; BP diastolic 51–112
[2018-07-25] MEDS: IPRATROPIUM/ALBUTEROL 0.5-3(2.5)MG/3ML NEB HHN SCH ×6 (00:45→20:40)
[2018-07-25] MEDS: ACETYLCYSTEINE 100MG/ML 10% VIAL 4ML INH SCH ×3 (00:45→16:36)
[2018-07-25] MEDS: LORAZEPAM 2MG/ML CPJ IV PRN (01:47)
[2018-07-25] MEDS: CEFEPIME 1,000 MG in DEXTROSE 5% WATER 50 ML IV SCH ×2 (01:47→12:01)
[2018-07-25 05:54] LABS: HEMATOCRIT. 23.5 % (42.0-52.0); HEMOGLOBIN. 8.2 g/dL (14.0-18.0); INR 2.5; MEAN CORPUSCULAR HEMOGLOBIN 32.2 pg (28.0-32.0); MEAN CORPUSCULAR VOLUME 92.9 fL (80.0-94.0); MEAN PLATELET VOLUME 7.8 fl (7.4-10.4); PROTHROMBIN TIME 24.9 sec (9.1-11.1); RED BLOOD CELL COUNT 2.53 mill/uL (4.7-6.1); RED CELL DISTRIBUTION WIDTH 18.9 % (11.6-14.6)
[2018-07-25] MEDS: METRONIDAZOLE 500 MG PREMIX 100 ML IV SCH ×3 (05:55→20:37)
[2018-07-25 06:09] LABS: PLATELET 12 x1000/uL (130-400)
[2018-07-25 06:10] LABS: CHLORIDE 116 mEq/L (98-107)
[2018-07-25 06:13] LABS: PHOSPHORUS 2.6 mg/dL (2.5-4.9)
[2018-07-25 07:02] LABS: PLATELET ESTIMATE MARKEDLY DECREASED
[2018-07-25] MEDS: LACTULOSE 20G/30ML UDC PO SCH (08:28)
[2018-07-25] MEDS: QUETIAPINE FUMARATE 25MG TABLET PO SCH (08:28)
[2018-07-25] MEDS: FOLIC ACID 1MG TABLET PO SCH (08:28)
[2018-07-25] MEDS: THIAMINE HCL 100MG TABLET PO SCH (08:28)
[2018-07-25] MEDS: PANTOPRAZOLE SODIUM 40 MG/VIAL IV SCH (08:28)
[2018-07-25] MEDS: LEVETIRACETAM 500 MG in SODIUM CHLORIDE 0.9% 100 ML IV SCH ×2 (08:28→20:37)
[2018-07-25] MEDS: MULTIVITAMINS,THER W-MINERALS TABLET PO SCH (08:28)
[2018-07-25] MEDS: RIFAXIMIN 550 MG TABLET PO SCH ×2 (08:28→21:00)
[2018-07-25] MEDS: DEXT 5% WATER + KCL 20MEQ/L 1,000 ML IV SCH ×2 (12:02→22:38)
[2018-07-25] MEDS: CEFAZOLIN 2,000 MG in DEXT 5% WATER 100 ML IV SCH (16:56)
[2018-07-25] MEDS: HALOPERIDOL LACTATE 5MG/ML VIAL IM PRN (17:19)
[2018-07-25] MEDS ORDERED: OCTREOTIDE 1,000 MCG in SODIUM CHLORIDE 0.9% 98 ML IV PRN (20:30)
[2018-07-25 22:03] LABS: BASOPHILS % 0.7 % (0.0-2.0); EOSINOPHILS % 3.1 % (0.0-5.0); HEMATOCRIT. 23.3 % (42.0-52.0); HEMOGLOBIN. 8.1 g/dL (14.0-18.0); LYMPHOCYTES % 10.6 % (20.0-50.0); MEAN CORPUSCULAR VOLUME 92.4 fL (80.0-94.0); MEAN PLATELET VOLUME 7.8 fl (7.4-10.4); MONOCYTES % 14.7 % (2.0-8.0); NEUTROPHILS % 70.9 % (40.0-76.0); RED BLOOD CELL COUNT 2.52 mill/uL (4.7-6.1); RED CELL DISTRIBUTION WIDTH 19.1 % (11.6-14.6)
[2018-07-25 22:09] LABS: PLATELET 19 x1000/uL (130-400)
[2018-07-26] VITALS (45 sets, daily range): BP systolic 93–164; BP diastolic 54–104
[2018-07-26] MEDS: ACETYLCYSTEINE 100MG/ML 10% VIAL 4ML INH SCH ×3 (00:43→16:06)
[2018-07-26] MEDS: IPRATROPIUM/ALBUTEROL 0.5-3(2.5)MG/3ML NEB HHN SCH ×6 (00:43→20:32)
[2018-07-26] MEDS: CEFAZOLIN 2,000 MG in DEXT 5% WATER 100 ML IV SCH ×3 (00:46→17:57)
[2018-07-26] MEDS: METRONIDAZOLE 500 MG PREMIX 100 ML IV SCH ×3 (04:20→20:20)
[2018-07-26 06:22] LABS: HEMOGLOBIN. 8.5 g/dL (14.0-18.0); MEAN CORPUSCULAR HEMOGLOBIN 32.7 pg (28.0-32.0); MEAN CORPUSCULAR VOLUME 92.2 fL (80.0-94.0); RED CELL DISTRIBUTION WIDTH 18.9 % (11.6-14.6)
[2018-07-26 06:36] LABS: PLATELET 17 x1000/uL (130-400)
[2018-07-26 06:39] LABS: CHLORIDE 114 mEq/L (98-107)
[2018-07-26 07:03] LABS: PHOSPHORUS 3.3 mg/dL (2.5-4.9)
[2018-07-26 07:26] LABS: PLATELET ESTIMATE MARKEDLY DECREASED
[2018-07-26] MEDS ORDERED: LACTULOSE 20G/30ML UDC PO SCH (09:00)
[2018-07-26] MEDS: LEVETIRACETAM 500 MG in SODIUM CHLORIDE 0.9% 100 ML IV SCH ×2 (09:22→21:33)
[2018-07-26] MEDS: QUETIAPINE FUMARATE 25MG TABLET PO SCH (09:23)
[2018-07-26] MEDS: THIAMINE HCL 100MG TABLET PO SCH (09:23)
[2018-07-26] MEDS: FOLIC ACID 1MG TABLET PO SCH (09:23)
[2018-07-26] MEDS: MULTIVITAMINS,THER W-MINERALS TABLET PO SCH (09:23)
[2018-07-26] MEDS: RIFAXIMIN 550 MG TABLET PO SCH ×2 (09:23→20:19)
[2018-07-26] MEDS: OMEPRAZOLE 20MG CAPSULE EXTENDED RELEASE PO SCH (09:27)
[2018-07-26] MEDS: OCTREOTIDE 1,000 MCG in SODIUM CHLORIDE 0.9% 98 ML IV SCH ×2 (10:00→18:00)
[2018-07-26 14:44] LABS: HEMATOCRIT 22.6 % (42.0-52.0); HEMOGLOBIN 7.9 g/dL (14.0-18.0)
[2018-07-26 23:17] LABS: HEMATOCRIT 21.8 % (42.0-52.0); HEMOGLOBIN 7.7 g/dL (14.0-18.0)
[2018-07-27] VITALS (47 sets, daily range): BP systolic 76–155; BP diastolic 61–99
[2018-07-27] MEDS: ACETYLCYSTEINE 100MG/ML 10% VIAL 4ML INH SCH ×3 (00:28→16:15)
[2018-07-27] MEDS: IPRATROPIUM/ALBUTEROL 0.5-3(2.5)MG/3ML NEB HHN SCH ×7 (00:28→20:14)
[2018-07-27] MEDS: CEFAZOLIN 2,000 MG in DEXT 5% WATER 100 ML IV SCH (01:00)
[2018-07-27 05:48] LABS: HEMATOCRIT. 21.9 % (42.0-52.0); HEMOGLOBIN. 7.5 g/dL (14.0-18.0); MEAN CORPUSCULAR HEMOGLOBIN 31.6 pg (28.0-32.0); MEAN CORPUSCULAR VOLUME 91.9 fL (80.0-94.0); MEAN PLATELET VOLUME 8.6 fl (7.4-10.4); RED BLOOD CELL COUNT 2.38 mill/uL (4.7-6.1); RED CELL DISTRIBUTION WIDTH 19.3 % (11.6-14.6)
[2018-07-27 07:19] LABS: PHOSPHORUS 2.7 mg/dL (2.5-4.9)
[2018-07-27 07:31] LABS: PLATELET 24 x1000/uL (130-400); PLATELET ESTIMATE MARKEDLY DECREASED
[2018-07-27] MEDS: OMEPRAZOLE 20MG CAPSULE EXTENDED RELEASE PO SCH (07:50)
[2018-07-27] MEDS: DEXT 5%/0.45% NACL 1000ML 1,000 ML IV SCH ×2 (08:13→22:58)
[2018-07-27] MEDS: LEVETIRACETAM 500 MG in SODIUM CHLORIDE 0.9% 100 ML IV SCH ×2 (08:43→22:01)
[2018-07-27] MEDS: MULTIVITAMINS,THER W-MINERALS TABLET PO SCH (09:00)
[2018-07-27] MEDS: LACTULOSE 20G/30ML UDC PO SCH ×2 (09:00→17:25)
[2018-07-27] MEDS: RIFAXIMIN 550 MG TABLET PO SCH ×2 (09:00→22:01)
[2018-07-27] MEDS: THIAMINE HCL 100MG TABLET PO SCH (09:00)
[2018-07-27] MEDS: QUETIAPINE FUMARATE 25MG TABLET PO SCH ×2 (09:00→13:52)
[2018-07-27] MEDS: FOLIC ACID 1MG TABLET PO SCH (09:00)
[2018-07-27] MEDS ORDERED: CEFAZOLIN 2,000 MG in DEXT 5% WATER 100 ML IV SCH (13:00)
[2018-07-27] MEDS: OCTREOTIDE 1,000 MCG in SODIUM CHLORIDE 0.9% 98 ML IV SCH (13:54)
[2018-07-28] VITALS (27 sets, daily range): BP systolic 120–153; BP diastolic 74–98
[2018-07-28] MEDS: IPRATROPIUM/ALBUTEROL 0.5-3(2.5)MG/3ML NEB HHN SCH ×6 (00:02→20:31)
[2018-07-28] MEDS: ACETYLCYSTEINE 100MG/ML 10% VIAL 4ML INH SCH ×2 (00:03→08:01)
[2018-07-28 06:12] LABS: HEMATOCRIT. 23.5 % (42.0-52.0); HEMOGLOBIN. 8.1 g/dL (14.0-18.0); MEAN CORPUSCULAR VOLUME 93.1 fL (80.0-94.0); MEAN PLATELET VOLUME 7.9 fl (7.4-10.4); RED BLOOD CELL COUNT 2.52 mill/uL (4.7-6.1); RED CELL DISTRIBUTION WIDTH 19.2 % (11.6-14.6)
[2018-07-28 06:28] LABS: PLATELET 19 x1000/uL (130-400)
[2018-07-28 06:35] LABS: PHOSPHORUS 3.3 mg/dL (2.5-4.9)
[2018-07-28 06:58] LABS: PLATELET ESTIMATE MARKEDLY DECREASED
[2018-07-28] MEDS: LEVETIRACETAM 500 MG in SODIUM CHLORIDE 0.9% 100 ML IV SCH ×2 (08:32→21:07)
[2018-07-28] MEDS: LACTULOSE 20G/30ML UDC PO SCH ×2 (08:32→16:10)
[2018-07-28] MEDS: FOLIC ACID 1MG TABLET PO SCH (08:33)
[2018-07-28] MEDS: OMEPRAZOLE 20MG CAPSULE EXTENDED RELEASE PO SCH (08:33)
[2018-07-28] MEDS: RIFAXIMIN 550 MG TABLET PO SCH ×2 (08:33→21:08)
[2018-07-28] MEDS: MULTIVITAMINS,THER W-MINERALS TABLET PO SCH (08:33)
[2018-07-28] MEDS: THIAMINE HCL 100MG TABLET PO SCH (08:33)
[2018-07-28] MEDS: OCTREOTIDE 1,000 MCG in SODIUM CHLORIDE 0.9% 98 ML IV SCH ×2 (10:49→23:09)
[2018-07-28] MEDS: DEXT 5%/0.45% NACL 1000ML 1,000 ML IV SCH (16:10)
[2018-07-29] VITALS (17 sets, daily range): BP systolic 126–145; BP diastolic 76–103
[2018-07-29] MEDS: IPRATROPIUM/ALBUTEROL 0.5-3(2.5)MG/3ML NEB HHN SCH ×7 (00:47→23:53)
[2018-07-29 06:37] LABS: BASOPHILS % 0.6 % (0.0-2.0); EOSINOPHILS % 3.6 % (0.0-5.0); HEMOGLOBIN. 7.8 g/dL (14.0-18.0); MEAN CORPUSCULAR HEMOGLOBIN 32.1 pg (28.0-32.0); MEAN CORPUSCULAR VOLUME 91.2 fL (80.0-94.0); MEAN PLATELET VOLUME 7.6 fl (7.4-10.4); MONOCYTES % 14.3 % (2.0-8.0); NEUTROPHILS % 62.5 % (40.0-76.0); RED BLOOD CELL COUNT 2.41 mill/uL (4.7-6.1); RED CELL DISTRIBUTION WIDTH 19.5 % (11.6-14.6)
[2018-07-29 06:47] LABS: PLATELET 23 x1000/uL (130-400)
[2018-07-29] MEDS: RIFAXIMIN 550 MG TABLET PO SCH ×2 (08:42→21:27)
[2018-07-29] MEDS: MULTIVITAMINS,THER W-MINERALS TABLET PO SCH (08:42)
[2018-07-29] MEDS: OMEPRAZOLE 20MG CAPSULE EXTENDED RELEASE PO SCH (08:42)
[2018-07-29] MEDS: FOLIC ACID 1MG TABLET PO SCH (08:42)
[2018-07-29] MEDS: LEVETIRACETAM 500 MG in SODIUM CHLORIDE 0.9% 100 ML IV SCH ×2 (08:43→21:27)
[2018-07-29] MEDS: THIAMINE HCL 100MG TABLET PO SCH (08:43)
[2018-07-29] MEDS: QUETIAPINE FUMARATE 25MG TABLET PO SCH (08:43)
[2018-07-29] MEDS: LACTULOSE 20G/30ML UDC PO SCH ×3 (08:44→18:11)
[2018-07-29] MEDS ORDERED: FUROSEMIDE 40MG/4ML VIAL IVP SCH (09:45)
[2018-07-29] MEDS: OCTREOTIDE 1,000 MCG in SODIUM CHLORIDE 0.9% 98 ML IV SCH (18:13)
[2018-07-30] VITALS (11 sets, daily range): BP systolic 118–147; BP diastolic 77–107
[2018-07-30] MEDS: IPRATROPIUM/ALBUTEROL 0.5-3(2.5)MG/3ML NEB HHN SCH ×5 (04:09→22:11)
[2018-07-30 06:02] LABS: BASOPHILS % 0.5 % (0.0-2.0); EOSINOPHILS % 2.9 % (0.0-5.0); HEMATOCRIT. 21.7 % (42.0-52.0); HEMOGLOBIN. 7.8 g/dL (14.0-18.0); LYMPHOCYTES % 17.4 % (20.0-50.0); MEAN CORPUSCULAR HEMOGLOBIN 33.6 pg (28.0-32.0); MEAN CORPUSCULAR VOLUME 93.1 fL (80.0-94.0); MEAN PLATELET VOLUME 7.6 fl (7.4-10.4); MONOCYTES % 12.6 % (2.0-8.0); NEUTROPHILS % 66.6 % (40.0-76.0); RED BLOOD CELL COUNT 2.33 mill/uL (4.7-6.1); RED CELL DISTRIBUTION WIDTH 19.4 % (11.6-14.6)
[2018-07-30 06:11] LABS: INR 2.6; PROTHROMBIN TIME 25.6 sec (9.1-11.1)
[2018-07-30 06:23] LABS: CHLORIDE 114 mEq/L (98-107)
[2018-07-30 06:28] LABS: PHOSPHORUS 4.1 mg/dL (2.5-4.9)
[2018-07-30 06:30] LABS: PLATELET 23 x1000/uL (130-400)
[2018-07-30] MEDS: FOLIC ACID 1MG TABLET PO SCH (09:38)
[2018-07-30] MEDS: LACTULOSE 20G/30ML UDC PO SCH ×2 (09:38→17:33)
[2018-07-30] MEDS: QUETIAPINE FUMARATE 25MG TABLET PO SCH (09:39)
[2018-07-30] MEDS: LEVETIRACETAM 500 MG in SODIUM CHLORIDE 0.9% 100 ML IV SCH (09:39)
[2018-07-30] MEDS: MULTIVITAMINS,THER W-MINERALS TABLET PO SCH (09:39)
[2018-07-30] MEDS: THIAMINE HCL 100MG TABLET PO SCH (09:39)
[2018-07-30] MEDS: RIFAXIMIN 550 MG TABLET PO SCH ×2 (09:45→23:42)
[2018-07-30] MEDS: OMEPRAZOLE 20MG CAPSULE EXTENDED RELEASE PO SCH (09:46)
[2018-07-30] MEDS: HALOPERIDOL LACTATE 5MG/ML VIAL IM PRN ×2 (11:09→20:52)
[2018-07-30] MEDS: ONDANSETRON HCL 4MG/2ML INJ IV PRN (13:38)
[2018-07-30] MEDS: OCTREOTIDE 1,000 MCG in SODIUM CHLORIDE 0.9% 98 ML IV SCH (13:38)
[2018-07-30] MEDS: FUROSEMIDE 40MG TABLET PO SCH (14:46)
[2018-07-30] MEDS: PROPRANOLOL HCL 10MG TABLET PO SCH ×2 (14:46→22:49)
[2018-07-30] MEDS: LEVETIRACETAM 500MG TABLET PO SCH (20:58)
[2018-07-31] VITALS: BP 128/78
[2018-07-31] MEDS: IPRATROPIUM/ALBUTEROL 0.5-3(2.5)MG/3ML NEB HHN SCH ×6 (00:58→21:30)
[2018-07-31] MEDS: HALOPERIDOL LACTATE 5MG/ML VIAL IM PRN ×3 (02:58→20:32)
[2018-07-31 04:00] VITALS: BP 130/76
[2018-07-31] MEDS: OMEPRAZOLE 20MG CAPSULE EXTENDED RELEASE PO SCH (06:50)
[2018-07-31 08:00] VITALS: BP 108/74
[2018-07-31] MEDS: PROPRANOLOL HCL 10MG TABLET PO SCH ×2 (09:00→20:27)
[2018-07-31] MEDS: QUETIAPINE FUMARATE 25MG TABLET PO SCH (09:30)
[2018-07-31] MEDS: RIFAXIMIN 550 MG TABLET PO SCH ×2 (09:30→20:27)
[2018-07-31] MEDS: FOLIC ACID 1MG TABLET PO SCH (09:30)
[2018-07-31] MEDS: MULTIVITAMINS,THER W-MINERALS TABLET PO SCH (09:30)
[2018-07-31] MEDS: FUROSEMIDE 40MG TABLET PO SCH (09:30)
[2018-07-31] MEDS: LACTULOSE 20G/30ML UDC PO SCH ×2 (09:30→18:37)
[2018-07-31] MEDS: THIAMINE HCL 100MG TABLET PO SCH (09:30)
[2018-07-31] MEDS: LEVETIRACETAM 500MG TABLET PO SCH ×2 (09:30→20:27)
[2018-07-31 16:00] VITALS: BP 106/64
[2018-07-31 20:00] VITALS: BP 105/59
[2018-08-01] VITALS: BP 111/66
[2018-08-01] MEDS: IPRATROPIUM/ALBUTEROL 0.5-3(2.5)MG/3ML NEB HHN SCH ×6 (00:35→21:10)
[2018-08-01] MEDS: HALOPERIDOL LACTATE 5MG/ML VIAL IM PRN (00:58)
[2018-08-01 04:00] VITALS: BP 102/65
[2018-08-01] MEDS: OCTREOTIDE 1,000 MCG in SODIUM CHLORIDE 0.9% 98 ML IV SCH (05:10)
[2018-08-01] MEDS: OMEPRAZOLE 20MG CAPSULE EXTENDED RELEASE PO SCH (07:08)
[2018-08-01 07:42] LABS: CHLORIDE 118 mEq/L (98-107)
[2018-08-01 07:49] LABS: BASOPHILS % 0.8 % (0.0-2.0); EOSINOPHILS % 2.9 % (0.0-5.0); HEMATOCRIT. 22.5 % (42.0-52.0); HEMOGLOBIN. 7.9 g/dL (14.0-18.0); LYMPHOCYTES % 17.3 % (20.0-50.0); MEAN CORPUSCULAR HEMOGLOBIN 32.1 pg (28.0-32.0); MEAN CORPUSCULAR VOLUME 91.8 fL (80.0-94.0); MEAN PLATELET VOLUME 8.1 fl (7.4-10.4); MONOCYTES % 10.3 % (2.0-8.0); NEUTROPHILS % 68.7 % (40.0-76.0); RED BLOOD CELL COUNT 2.46 mill/uL (4.7-6.1); RED CELL DISTRIBUTION WIDTH 19.2 % (11.6-14.6)
[2018-08-01 08:00] VITALS: BP 115/59
[2018-08-01 08:09] LABS: PLATELET 27 x1000/uL (130-400)
[2018-08-01] MEDS: PROPRANOLOL HCL 10MG TABLET PO SCH ×2 (09:00→20:57)
[2018-08-01] MEDS: LACTULOSE 20G/30ML UDC PO SCH (09:23)
[2018-08-01] MEDS: THIAMINE HCL 100MG TABLET PO SCH (09:23)
[2018-08-01] MEDS: LEVETIRACETAM 500MG TABLET PO SCH ×2 (09:23→20:56)
[2018-08-01] MEDS: QUETIAPINE FUMARATE 25MG TABLET PO SCH (09:24)
[2018-08-01] MEDS: FOLIC ACID 1MG TABLET PO SCH (09:24)
[2018-08-01] MEDS: RIFAXIMIN 550 MG TABLET PO SCH ×2 (09:24→20:56)
[2018-08-01] MEDS: MULTIVITAMINS,THER W-MINERALS TABLET PO SCH (09:25)
[2018-08-01 10:49] VITALS: BP 139/70
[2018-08-01] MEDS ORDERED: THIA100T72 PO (14:53)
[2018-08-01] MEDS ORDERED: PROP10TA10 PO ×2 (14:53→14:54)
[2018-08-01] MEDS ORDERED: QUET25TA PO (14:53)
[2018-08-01] MEDS ORDERED: OMEP20CA10 PO (14:53)
[2018-08-01] MEDS ORDERED: FOLI-43 PO (14:53)
[2018-08-01] MEDS ORDERED: RIFA550T PO (14:53)
[2018-08-01] MEDS ORDERED: KEPP500 PO (14:53)
[2018-08-01 18:31] VITALS: BP 113/68
[2018-08-01 20:00] VITALS: BP 104/61
[2018-08-02] VITALS: BP 103/67
[2018-08-02] MEDS: IPRATROPIUM/ALBUTEROL 0.5-3(2.5)MG/3ML NEB HHN SCH ×5 (00:38→22:05)
[2018-08-02] MEDS: OCTREOTIDE 1,000 MCG in SODIUM CHLORIDE 0.9% 98 ML IV SCH ×2 (03:16→23:09)
[2018-08-02 04:00] VITALS: BP 101/59
[2018-08-02] MEDS: OMEPRAZOLE 20MG CAPSULE EXTENDED RELEASE PO SCH ×2 (06:11→09:56)
[2018-08-02 07:40] LABS: CHLORIDE 115 mEq/L (98-107)
[2018-08-02 07:44] LABS: PHOSPHORUS 6.5 mg/dL (2.5-4.9)
[2018-08-02 07:58] LABS: BASOPHILS % 0.3 % (0.0-2.0); EOSINOPHILS % 2.2 % (0.0-5.0); HEMATOCRIT. 21.8 % (42.0-52.0); HEMOGLOBIN. 7.8 g/dL (14.0-18.0); LYMPHOCYTES % 12.5 % (20.0-50.0); MEAN CORPUSCULAR HEMOGLOBIN 33.2 pg (28.0-32.0); MEAN CORPUSCULAR VOLUME 92.9 fL (80.0-94.0); MEAN PLATELET VOLUME 7.9 fl (7.4-10.4); MONOCYTES % 7.1 % (2.0-8.0); NEUTROPHILS % 77.9 % (40.0-76.0); RED BLOOD CELL COUNT 2.35 mill/uL (4.7-6.1); RED CELL DISTRIBUTION WIDTH 19.3 % (11.6-14.6)
[2018-08-02 08:00] VITALS: BP 107/63
[2018-08-02] MEDS ORDERED: SODIUM POLYSTYRENE SULFONATE 15 G/60 ML BOT PO NR (08:00)
[2018-08-02] MEDS ORDERED: SODIUM CHLORIDE 0.9% 1,000 ML IV SCH (08:00)
[2018-08-02] MEDS: THIAMINE HCL 100MG TABLET PO SCH (09:25)
[2018-08-02] MEDS: QUETIAPINE FUMARATE 25MG TABLET PO SCH (09:25)
[2018-08-02] MEDS: RIFAXIMIN 550 MG TABLET PO SCH ×2 (09:25→20:30)
[2018-08-02] MEDS: MULTIVITAMINS,THER W-MINERALS TABLET PO SCH (09:25)
[2018-08-02] MEDS: LEVETIRACETAM 500MG TABLET PO SCH ×2 (09:25→20:30)
[2018-08-02] MEDS: FOLIC ACID 1MG TABLET PO SCH (09:26)
[2018-08-02] MEDS ORDERED: SODIUM CHLORIDE 0.9% 250 ML IV ONE ×2 (09:45→10:00)
[2018-08-02 10:19] LABS: PLATELET ESTIMATE MARKEDLY DECREASED
[2018-08-02 10:21] LABS: PLATELET 24 x1000/uL (130-400)
[2018-08-02 12:00] VITALS: BP 137/65
[2018-08-02 16:00] VITALS: BP 120/68
[2018-08-02 19:01] LABS: CLARITY URINE TURBID (CLEAR); COLOR URINE DARK YELLOW (YELLOW); KETONES URINE TRACE (NEGATIVE); LEUKOCYTE ESTERASE URINE 2+ (NEGATIVE); NITRITE URINE POSITIVE (NEGATIVE); OCCULT BLOOD URINE 1+ (NEGATIVE); PROTEIN URINE 2+ (NEGATIVE); UROBILINOGEN URINE 0.2 E.U./dL (0.2-1.0)
[2018-08-02 20:00] VITALS: BP 105/61
[2018-08-03] VITALS: BP 117/66
[2018-08-03] MEDS: IPRATROPIUM/ALBUTEROL 0.5-3(2.5)MG/3ML NEB HHN SCH ×6 (00:53→20:20)
[2018-08-03 04:00] VITALS: BP 107/65
[2018-08-03] MEDS: OMEPRAZOLE 20MG CAPSULE EXTENDED RELEASE PO SCH (06:19)
[2018-08-03 08:00] VITALS: BP 131/65
[2018-08-03 08:53] LABS: CHLORIDE 116 mEq/L (98-107)
[2018-08-03 08:56] LABS: PHOSPHORUS 6.7 mg/dL (2.5-4.9)
[2018-08-03 08:58] LABS: BASOPHILS % 0.4 % (0.0-2.0); EOSINOPHILS % 1.8 % (0.0-5.0); HEMOGLOBIN. 7.1 g/dL (14.0-18.0); LYMPHOCYTES % 12.3 % (20.0-50.0); MEAN CORPUSCULAR HEMOGLOBIN 33.2 pg (28.0-32.0); MEAN CORPUSCULAR VOLUME 94.6 fL (80.0-94.0); MONOCYTES % 7.7 % (2.0-8.0); NEUTROPHILS % 77.8 % (40.0-76.0); RED BLOOD CELL COUNT 2.15 mill/uL (4.7-6.1); RED CELL DISTRIBUTION WIDTH 18.8 % (11.6-14.6)
[2018-08-03] MEDS ORDERED: METOLAZONE 2.5MG TABLET PO NR (09:00)
[2018-08-03 09:05] LABS: HEMATOCRIT. 20.3 % (42.0-52.0); PLATELET 21 x1000/uL (130-400)
[2018-08-03] MEDS: QUETIAPINE FUMARATE 25MG TABLET PO SCH (09:09)
[2018-08-03] MEDS: FOLIC ACID 1MG TABLET PO SCH (09:09)
[2018-08-03] MEDS: LEVETIRACETAM 500MG TABLET PO SCH ×2 (09:10→20:40)
[2018-08-03] MEDS: RIFAXIMIN 550 MG TABLET PO SCH ×2 (09:10→20:40)
[2018-08-03] MEDS: MULTIVITAMINS,THER W-MINERALS TABLET PO SCH (09:10)
[2018-08-03] MEDS: LACTULOSE 20G/30ML UDC PO SCH (09:15)
[2018-08-03] MEDS ORDERED: FUROSEMIDE 100MG/10ML VIAL IVP NR (09:15)
[2018-08-03] MEDS: THIAMINE HCL 100MG TABLET PO SCH (10:11)
[2018-08-03] MEDS ORDERED: SODIUM POLYSTYRENE SULFONATE 15 G/60 ML BOT PO NR (10:30)
[2018-08-03 12:21] VITALS: BP 102/61
[2018-08-03 16:34] VITALS: BP 120/75
[2018-08-03] MEDS: METOLAZONE 10MG TABLET PO SCH (17:30)
[2018-08-03] MEDS: FUROSEMIDE 100MG/10ML VIAL IVP SCH (17:30)
[2018-08-03 20:00] VITALS: BP 114/94
[2018-08-04] MEDS: IPRATROPIUM/ALBUTEROL 0.5-3(2.5)MG/3ML NEB HHN SCH ×6 (00:23→19:46)
[2018-08-04 04:00] VITALS: BP 122/79
[2018-08-04] MEDS: OMEPRAZOLE 20MG CAPSULE EXTENDED RELEASE PO SCH (06:19)
[2018-08-04] MEDS: FUROSEMIDE 100MG/10ML VIAL IVP SCH ×2 (06:32→17:36)
[2018-08-04 08:00] VITALS: BP 130/80
[2018-08-04] MEDS: LACTULOSE 20G/30ML UDC PO SCH (09:10)
[2018-08-04] MEDS: THIAMINE HCL 100MG TABLET PO SCH (09:11)
[2018-08-04] MEDS: RIFAXIMIN 550 MG TABLET PO SCH ×2 (09:11→20:01)
[2018-08-04] MEDS: METOLAZONE 10MG TABLET PO SCH ×2 (09:11→17:36)
[2018-08-04] MEDS: LEVETIRACETAM 500MG TABLET PO SCH ×2 (09:12→20:01)
[2018-08-04] MEDS: FOLIC ACID 1MG TABLET PO SCH (09:12)
[2018-08-04] MEDS: QUETIAPINE FUMARATE 25MG TABLET PO SCH (09:12)
[2018-08-04] MEDS: MULTIVITAMINS,THER W-MINERALS TABLET PO SCH (09:14)
[2018-08-04 09:22] LABS: BASOPHILS % 0.7 % (0.0-2.0); EOSINOPHILS % 1.5 % (0.0-5.0); HEMOGLOBIN. 7.3 g/dL (14.0-18.0); LYMPHOCYTES % 11.9 % (20.0-50.0); MEAN CORPUSCULAR HEMOGLOBIN 33.1 pg (28.0-32.0); MEAN CORPUSCULAR VOLUME 95.7 fL (80.0-94.0); MEAN PLATELET VOLUME 8.5 fl (7.4-10.4); MONOCYTES % 7.2 % (2.0-8.0); NEUTROPHILS % 78.7 % (40.0-76.0); RED CELL DISTRIBUTION WIDTH 19.4 % (11.6-14.6)
[2018-08-04 09:33] LABS: PLATELET 22 x1000/uL (130-400)
[2018-08-04 12:00] VITALS: BP 120/72
[2018-08-04 16:00] VITALS: BP 106/66
[2018-08-04 20:00] VITALS: BP 114/63
[2018-08-05] VITALS (9 sets, daily range): BP systolic 99–105; BP diastolic 49–98
[2018-08-05] MEDS: IPRATROPIUM/ALBUTEROL 0.5-3(2.5)MG/3ML NEB HHN SCH ×6 (00:19→21:10)
[2018-08-05] MEDS: OMEPRAZOLE 20MG CAPSULE EXTENDED RELEASE PO SCH (06:31)
[2018-08-05] MEDS: FUROSEMIDE 100MG/10ML VIAL IVP SCH (06:31)
[2018-08-05 08:10] LABS: BASOPHILS % 0.3 % (0.0-2.0); LYMPHOCYTES % 7.6 % (20.0-50.0); MEAN CORPUSCULAR HEMOGLOBIN 32.9 pg (28.0-32.0); MEAN CORPUSCULAR VOLUME 94.1 fL (80.0-94.0); MEAN PLATELET VOLUME 7.8 fl (7.4-10.4); MONOCYTES % 6.1 % (2.0-8.0); RED BLOOD CELL COUNT 2.12 mill/uL (4.7-6.1); RED CELL DISTRIBUTION WIDTH 19.3 % (11.6-14.6)
[2018-08-05 08:21] LABS: PLATELET 18 x1000/uL (130-400)
[2018-08-05] MEDS: RIFAXIMIN 550 MG TABLET PO SCH (09:32)
[2018-08-05] MEDS: LEVETIRACETAM 500MG TABLET PO SCH ×2 (09:32→20:11)
[2018-08-05] MEDS: METOLAZONE 10MG TABLET PO SCH ×2 (09:32→17:00)
[2018-08-05] MEDS: FOLIC ACID 1MG TABLET PO SCH (09:32)
[2018-08-05] MEDS: MULTIVITAMINS,THER W-MINERALS TABLET PO SCH (09:32)
[2018-08-05] MEDS: THIAMINE HCL 100MG TABLET PO SCH (09:32)
[2018-08-05] MEDS: QUETIAPINE FUMARATE 25MG TABLET PO SCH (09:33)
[2018-08-05 09:57] LABS: PHOSPHORUS 7.7 mg/dL (2.5-4.9)
[2018-08-05] MEDS: OCTREOTIDE 1,000 MCG in SODIUM CHLORIDE 0.9% 98 ML IV SCH (10:00)
[2018-08-05] MEDS ORDERED: SODIUM POLYSTYRENE SULFONATE 15 G/60 ML BOT PO NR (11:00)
[2018-08-05] MEDS ORDERED: FUROSEMIDE 100MG/10ML VIAL IVP SCH (14:00)
[2018-08-05] MEDS: CALCIUM ACETATE 667MG CAPSULE PO SCH (17:40)
[2018-08-05] MEDS: LACTULOSE 20G/30ML UDC PO SCH (20:12)
[2018-08-06] VITALS (7 sets, daily range): BP systolic 95–127; BP diastolic 51–80
[2018-08-06] MEDS: IPRATROPIUM/ALBUTEROL 0.5-3(2.5)MG/3ML NEB HHN SCH ×5 (02:00→21:15)
[2018-08-06 02:17] LABS: HEMATOCRIT 21.5 % (42.0-52.0); HEMOGLOBIN 7.5 g/dL (14.0-18.0)
[2018-08-06 03:16] LABS: BASOPHILS % 0.3 % (0.0-2.0); HEMOGLOBIN. 7.9 g/dL (14.0-18.0); LYMPHOCYTES % 7.6 % (20.0-50.0); MEAN CORPUSCULAR HEMOGLOBIN 32.5 pg (28.0-32.0); MEAN PLATELET VOLUME 8.1 fl (7.4-10.4); MONOCYTES % 5.5 % (2.0-8.0); NEUTROPHILS % 85.6 % (40.0-76.0); RED BLOOD CELL COUNT 2.45 mill/uL (4.7-6.1); RED CELL DISTRIBUTION WIDTH 18.2 % (11.6-14.6)
[2018-08-06 03:27] LABS: PLATELET 15 x1000/uL (130-400)
[2018-08-06 03:36] LABS: PROTHROMBIN TIME > 100.0 sec (9.1-11.1)
[2018-08-06 03:38] LABS: INR > 10.0
[2018-08-06 03:39] LABS: FIBRINOGEN 43 mg/dL (200-400)
[2018-08-06] MEDS: OCTREOTIDE 1,000 MCG in SODIUM CHLORIDE 0.9% 98 ML IV SCH (06:00)
[2018-08-06] MEDS: OMEPRAZOLE 20MG CAPSULE EXTENDED RELEASE PO SCH (06:51)
[2018-08-06] MEDS: CALCIUM ACETATE 667MG CAPSULE PO SCH ×3 (10:11→16:51)
[2018-08-06] MEDS: MULTIVITAMINS,THER W-MINERALS TABLET PO SCH (10:11)
[2018-08-06] MEDS: FUROSEMIDE 100MG/10ML VIAL IVP SCH ×2 (10:11→20:20)
[2018-08-06] MEDS: LEVETIRACETAM 500MG TABLET PO SCH ×2 (10:11→20:20)
[2018-08-06] MEDS: THIAMINE HCL 100MG TABLET PO SCH (10:12)
[2018-08-06] MEDS: FOLIC ACID 1MG TABLET PO SCH (10:12)
[2018-08-06] MEDS: QUETIAPINE FUMARATE 25MG TABLET PO SCH (10:12)
[2018-08-06] MEDS: METOLAZONE 10MG TABLET PO SCH (10:12)
[2018-08-06] MEDS: RIFAXIMIN 550 MG TABLET PO SCH (10:12)
[2018-08-06] MEDS: DOXYCYCLINE 100 MG in DEXT 5% WATER 100 ML IV SCH (12:35)
[2018-08-06] MEDS ORDERED: SODIUM POLYSTYRENE SULFONATE 15 G/60 ML BOT PO NR (16:30)
[2018-08-07] VITALS: BP 108/50
[2018-08-07] MEDS: DOXYCYCLINE 100 MG in DEXT 5% WATER 100 ML IV SCH ×3 (00:49→23:12)
[2018-08-07] MEDS: IPRATROPIUM/ALBUTEROL 0.5-3(2.5)MG/3ML NEB HHN SCH ×6 (00:51→20:46)
[2018-08-07] MEDS: OCTREOTIDE 1,000 MCG in SODIUM CHLORIDE 0.9% 98 ML IV SCH ×2 (03:12→23:05)
[2018-08-07 04:00] VITALS: BP 105/52
[2018-08-07] MEDS: OMEPRAZOLE 20MG CAPSULE EXTENDED RELEASE PO SCH (06:21)
[2018-08-07 08:00] VITALS: BP 124/70
[2018-08-07] MEDS: CALCIUM ACETATE 667MG CAPSULE PO SCH ×2 (09:36→12:31)
[2018-08-07] MEDS: FOLIC ACID 1MG TABLET PO SCH (09:36)
[2018-08-07] MEDS: RIFAXIMIN 550 MG TABLET PO SCH (09:36)
[2018-08-07] MEDS: THIAMINE HCL 100MG TABLET PO SCH (09:36)
[2018-08-07] MEDS: MULTIVITAMINS,THER W-MINERALS TABLET PO SCH (09:36)
[2018-08-07] MEDS: LACTULOSE 20G/30ML UDC PO SCH (09:36)
[2018-08-07] MEDS: LEVETIRACETAM 500MG TABLET PO SCH ×2 (09:36→21:24)
[2018-08-07] MEDS: QUETIAPINE FUMARATE 25MG TABLET PO SCH (09:36)
[2018-08-07] MEDS: FUROSEMIDE 100MG/10ML VIAL IVP SCH ×2 (09:36→21:24)
[2018-08-07 12:00] VITALS: BP 119/71
[2018-08-07 13:17] LABS: BASOPHILS % 0.5 % (0.0-2.0); EOSINOPHILS % 1.1 % (0.0-5.0); HEMOGLOBIN. 7.7 g/dL (14.0-18.0); LYMPHOCYTES % 7.4 % (20.0-50.0); MEAN CORPUSCULAR VOLUME 94.5 fL (80.0-94.0); MEAN PLATELET VOLUME 8.4 fl (7.4-10.4); MONOCYTES % 3.5 % (2.0-8.0); NEUTROPHILS % 87.5 % (40.0-76.0); RED BLOOD CELL COUNT 2.33 mill/uL (4.7-6.1); RED CELL DISTRIBUTION WIDTH 18.3 % (11.6-14.6)
[2018-08-07 14:08] LABS: PHOSPHORUS 8.1 mg/dL (2.5-4.9)
[2018-08-07 16:00] VITALS: BP 120/70
[2018-08-07 16:23] LABS: PLATELET 11 x1000/uL (130-400)
[2018-08-07] MEDS: SEVELAMER CARBONATE 800 MG TABLET PO SCH (17:10)
[2018-08-07 20:00] VITALS: BP 147/92
[2018-08-08] VITALS (49 sets, daily range): BP systolic 62–172; BP diastolic 33–104
[2018-08-08] MEDS: IPRATROPIUM/ALBUTEROL 0.5-3(2.5)MG/3ML NEB HHN SCH ×6 (01:03→20:08)
[2018-08-08] MEDS: SEVELAMER CARBONATE 800 MG TABLET PO SCH ×3 (05:53→16:25)
[2018-08-08] MEDS: OMEPRAZOLE 20MG CAPSULE EXTENDED RELEASE PO SCH (05:53)
[2018-08-08 07:52] LABS: HEMOGLOBIN. 7.2 g/dL (14.0-18.0); MEAN CORPUSCULAR VOLUME 94.5 fL (80.0-94.0); MEAN PLATELET VOLUME 7.2 fl (7.4-10.4); RED BLOOD CELL COUNT 2.18 mill/uL (4.7-6.1); RED CELL DISTRIBUTION WIDTH 18.3 % (11.6-14.6)
[2018-08-08 07:57] LABS: HEMATOCRIT. 20.6 % (42.0-52.0); PLATELET 33 x1000/uL (130-400)
[2018-08-08] MEDS ORDERED: SODIUM POLYSTYRENE SULFONATE 15 G/60 ML BOT PO SCH (09:00)
[2018-08-08] MEDS: MULTIVITAMINS,THER W-MINERALS TABLET PO SCH (10:31)
[2018-08-08] MEDS: FOLIC ACID 1MG TABLET PO SCH (10:31)
[2018-08-08] MEDS: RIFAXIMIN 550 MG TABLET PO SCH (10:31)
[2018-08-08] MEDS: THIAMINE HCL 100MG TABLET PO SCH (10:31)
[2018-08-08] MEDS: FUROSEMIDE 100MG/10ML VIAL IVP SCH ×2 (10:31→22:51)
[2018-08-08] MEDS: QUETIAPINE FUMARATE 25MG TABLET PO SCH (10:31)
[2018-08-08] MEDS: LEVETIRACETAM 500MG TABLET PO SCH ×2 (10:31→22:50)
[2018-08-08 10:47] LABS: CHLORIDE 116 mEq/L (98-107)
[2018-08-08 11:44] LABS: PHOSPHORUS 8.7 mg/dL (2.5-4.9)
[2018-08-08] MEDS: METOLAZONE 10MG TABLET PO SCH ×2 (12:48→16:25)
[2018-08-08] MEDS: DOXYCYCLINE 100 MG in DEXT 5% WATER 100 ML IV SCH (12:48)
[2018-08-08] MEDS ORDERED: EPINEPHRINE 0.1MG/ML (1:10,000) 10ML SYR ONE (14:12)
[2018-08-08] MEDS ORDERED: SODIUM BICARBONATE 7.5% 0.9 MEQ/ML 50ML SYR IV ONE (14:12)
[2018-08-08 14:17] LABS: NUCLEATED RED BLOOD CELLS 1 /100 WBC
[2018-08-08 14:18] LABS: PLATELET ESTIMATE MARKEDLY DECREASED
[2018-08-08] MEDS ORDERED: IPRATROPIUM/ALBUTEROL 0.5-3(2.5)MG/3ML NEB HHN PRN (15:15)
[2018-08-08] MEDS ORDERED: MORPHINE SULFATE 4 MG/ML CPJ (NOT FOR IM USE) IV PRN (15:30)
[2018-08-08 15:50] LABS: BG BASE EXCESS -12.1 mmol/L (-2.0-2.0); BG CARBOXYHEMOGLOBIN 0.5 % (0.5-1.5); BG DEOXYHEMOGLOBIN 1.5 % (0.0-5.0); BG FRACTION INSPIRED OXYGEN 100; BG METHEMOGLOBIN 0.3 % (0.0-1.5); BG OXYGEN SATURATION 98.5 % (92.0-98.5); BG OXYHEMOGLOBIN 97.7 % (94.0-97.0); BG PH 7.142 (7.350-7.450); BG PO2 212.5 mmHg (75.0-100.0); BG SAMPLE SITE LEFT RADIAL; BG TIDAL VOLUME(mL) 500 mL; BG TOTAL HEMOGLOBIN 7.4 g/dL (12.0-18.0); BG VENT MODE VENT - A/C; BG VENT RATE 14 set
[2018-08-08] MEDS: VASOPRESSIN 10 UNIT in SODIUM CHLORIDE 0.9% 99.5 ML IV PRN ×2 (16:23→20:05)
[2018-08-08] MEDS ORDERED: SODIUM BICARBONATE 8.4% 1 MEQ/ML 50ML SYR IV NR (16:30)
[2018-08-08] MEDS: PHENYLEPHRINE 40 MG in DEXT 5% WATER 246 ML IV PRN (16:48)
[2018-08-08] MEDS: LORAZEPAM 2MG/ML CPJ IV PRN (17:15)
[2018-08-08] MEDS: METRONIDAZOLE 500 MG PREMIX 100 ML IV SCH (17:16)
[2018-08-08] MEDS: OCTREOTIDE 1,000 MCG in SODIUM CHLORIDE 0.9% 98 ML IV SCH (17:59)
[2018-08-08] MEDS: DOPAMINE 400MG PREMIX 250 ML IV PRN (20:04)
[2018-08-08 20:22] LABS: CHLORIDE 118 mEq/L (98-107)
[2018-08-08 20:23] LABS: HEMATOCRIT. 22.9 % (42.0-52.0); HEMOGLOBIN. 7.5 g/dL (14.0-18.0); MEAN CORPUSCULAR HEMOGLOBIN 31.2 pg (28.0-32.0); MEAN CORPUSCULAR VOLUME 95.3 fL (80.0-94.0); MEAN PLATELET VOLUME 7.7 fl (7.4-10.4); RED BLOOD CELL COUNT 2.41 mill/uL (4.7-6.1); RED CELL DISTRIBUTION WIDTH 19.2 % (11.6-14.6)
[2018-08-08 20:28] LABS: PLATELET 46 x1000/uL (130-400)
[2018-08-08 20:33] LABS: INR 3.3; PROTHROMBIN TIME 32.6 sec (9.1-11.1)
[2018-08-08 21:25] LABS: NUCLEATED RED BLOOD CELLS 4 /100 WBC; PLATELET ESTIMATE MARKEDLY DECREASED
[2018-08-09] VITALS (96 sets, daily range): BP systolic 55–182; BP diastolic 22–113
[2018-08-09] MEDS: PHENYLEPHRINE 40 MG in DEXT 5% WATER 246 ML IV PRN (00:01)
[2018-08-09] MEDS: VASOPRESSIN 10 UNIT in SODIUM CHLORIDE 0.9% 99.5 ML IV PRN ×6 (00:56→23:55)
[2018-08-09] MEDS: DOXYCYCLINE 100 MG in DEXT 5% WATER 100 ML IV SCH ×2 (01:00→13:07)
[2018-08-09] MEDS: IPRATROPIUM/ALBUTEROL 0.5-3(2.5)MG/3ML NEB HHN SCH ×5 (01:45→20:19)
[2018-08-09] MEDS: METRONIDAZOLE 500 MG PREMIX 100 ML IV SCH ×3 (03:07→18:18)
[2018-08-09 05:40] LABS: MEAN CORPUSCULAR HEMOGLOBIN 32.8 pg (28.0-32.0); MEAN CORPUSCULAR VOLUME 94.6 fL (80.0-94.0); MEAN PLATELET VOLUME 7.7 fl (7.4-10.4); PLATELET 59 x1000/uL (130-400); RED BLOOD CELL COUNT 2.14 mill/uL (4.7-6.1); RED CELL DISTRIBUTION WIDTH 18.7 % (11.6-14.6)
[2018-08-09 05:53] LABS: CHLORIDE 117 mEq/L (98-107)
[2018-08-09 05:55] LABS: HEMATOCRIT. 20.3 % (42.0-52.0)
[2018-08-09 06:20] LABS: PHOSPHORUS 8.3 mg/dL (2.5-4.9)
[2018-08-09] MEDS: SEVELAMER CARBONATE 800 MG TABLET PO SCH ×3 (06:30→15:51)
[2018-08-09] MEDS: OMEPRAZOLE 20MG CAPSULE EXTENDED RELEASE PO SCH ×2 (06:30→08:39)
[2018-08-09 06:51] LABS: ATYPICAL LYMPHOCYTES 1; NUCLEATED RED BLOOD CELLS 5 /100 WBC; PLATELET ESTIMATE DECREASED
[2018-08-09] MEDS: MULTIVITAMINS,THER W-MINERALS TABLET PO SCH (08:39)
[2018-08-09] MEDS: LEVETIRACETAM 500MG TABLET PO SCH ×2 (08:39→21:46)
[2018-08-09] MEDS: QUETIAPINE FUMARATE 25MG TABLET PO SCH (08:39)
[2018-08-09] MEDS: RIFAXIMIN 550 MG TABLET PO SCH (08:39)
[2018-08-09] MEDS: THIAMINE HCL 100MG TABLET PO SCH (08:39)
[2018-08-09] MEDS: FOLIC ACID 1MG TABLET PO SCH (08:41)
[2018-08-09] MEDS: LACTULOSE 20G/30ML UDC PO SCH (08:41)
[2018-08-09] MEDS: FUROSEMIDE 100MG/10ML VIAL IVP SCH ×2 (08:41→21:47)
[2018-08-09] MEDS: METOLAZONE 10MG TABLET PO SCH ×2 (08:42→18:17)
[2018-08-09] MEDS: DOPAMINE 400MG PREMIX 250 ML IV PRN ×2 (08:43→18:26)
[2018-08-09] MEDS: LORAZEPAM 2MG/ML CPJ IV PRN ×2 (10:14→13:34)
[2018-08-09 11:05] LABS: BG BASE EXCESS -9.7 mmol/L (-2.0-2.0); BG CARBOXYHEMOGLOBIN 0.3 % (0.5-1.5); BG DEOXYHEMOGLOBIN 18.6 % (0.0-5.0); BG FRACTION INSPIRED OXYGEN 100; BG HCO3 ACT 16.6 mmol/L (22.0-26.0); BG METHEMOGLOBIN 0.7 % (0.0-1.5); BG OXYGEN SATURATION 81.2 % (92.0-98.5); BG OXYHEMOGLOBIN 80.4 % (94.0-97.0); BG PCO2 38.2 mmHg (35.0-45.0); BG PH 7.256 (7.350-7.450); BG PO2 49.8 mmHg (75.0-100.0); BG SAMPLE SITE LEFT BRACHIAL; BG TIDAL VOLUME(mL) 500 mL; BG TOTAL HEMOGLOBIN 7.3 g/dL (12.0-18.0); BG VENT MODE VENT - A/C; BG VENT RATE 14 set
[2018-08-10] VITALS (89 sets, daily range): BP systolic 79–149; BP diastolic 14–99
[2018-08-10] MEDS: DOXYCYCLINE 100 MG in DEXT 5% WATER 100 ML IV SCH ×2 (01:26→13:25)
[2018-08-10] MEDS: IPRATROPIUM/ALBUTEROL 0.5-3(2.5)MG/3ML NEB HHN SCH ×5 (02:20→20:31)
[2018-08-10] MEDS: METRONIDAZOLE 500 MG PREMIX 100 ML IV SCH ×3 (02:31→17:23)
[2018-08-10] MEDS: VASOPRESSIN 10 UNIT in SODIUM CHLORIDE 0.9% 99.5 ML IV PRN ×5 (04:13→22:38)
[2018-08-10 06:10] LABS: MEAN CORPUSCULAR HEMOGLOBIN 33.9 pg (28.0-32.0); MEAN CORPUSCULAR VOLUME 99.2 fL (80.0-94.0); MEAN PLATELET VOLUME 8.6 fl (7.4-10.4); RED CELL DISTRIBUTION WIDTH 18.9 % (11.6-14.6)
[2018-08-10 06:28] LABS: HEMATOCRIT. 18.9 % (42.0-52.0); HEMOGLOBIN. 6.5 g/dL (14.0-18.0)
[2018-08-10] MEDS: METOLAZONE 10MG TABLET PO SCH ×2 (06:36→16:30)
[2018-08-10] MEDS: SEVELAMER CARBONATE 800 MG TABLET PO SCH ×3 (06:36→16:30)
[2018-08-10] MEDS: OMEPRAZOLE 20MG CAPSULE EXTENDED RELEASE PO SCH (06:36)
[2018-08-10] MEDS: DOPAMINE 400MG PREMIX 250 ML IV PRN ×2 (08:24→16:31)
[2018-08-10] MEDS: FUROSEMIDE 100MG/10ML VIAL IVP SCH ×2 (08:24→21:00)
[2018-08-10] MEDS: MULTIVITAMINS,THER W-MINERALS TABLET PO SCH (08:25)
[2018-08-10] MEDS: RIFAXIMIN 550 MG TABLET PO SCH (08:25)
[2018-08-10] MEDS: LEVETIRACETAM 500MG TABLET PO SCH ×2 (08:25→22:39)
[2018-08-10] MEDS: FOLIC ACID 1MG TABLET PO SCH (08:25)
[2018-08-10] MEDS: THIAMINE HCL 100MG TABLET PO SCH (08:25)
[2018-08-10] MEDS: QUETIAPINE FUMARATE 25MG TABLET PO SCH (08:26)
[2018-08-10] MEDS ORDERED: SODIUM BICARBONATE 8.4% 1 MEQ/ML 50ML SYR IV SCH (08:30)
[2018-08-10] MEDS: HALOPERIDOL LACTATE 5MG/ML VIAL IM PRN (08:36)
[2018-08-10 09:53] LABS: NUCLEATED RED BLOOD CELLS 1 /100 WBC
[2018-08-10 09:54] LABS: PLATELET ESTIMATE MARKEDLY DECREASED
[2018-08-10 09:55] LABS: PLATELET 40 x1000/uL (130-400)
[2018-08-10 12:03] LABS: BG BASE EXCESS -13.6 mmol/L (-2.0-2.0); BG CARBOXYHEMOGLOBIN 0.6 % (0.5-1.5); BG DEOXYHEMOGLOBIN 12.1 % (0.0-5.0); BG FRACTION INSPIRED OXYGEN 100; BG HCO3 ACT 12.8 mmol/L (22.0-26.0); BG METHEMOGLOBIN 0.7 % (0.0-1.5); BG OXYGEN SATURATION 87.7 % (92.0-98.5); BG OXYHEMOGLOBIN 86.6 % (94.0-97.0); BG PCO2 31.7 mmHg (35.0-45.0); BG PH 7.225 (7.350-7.450); BG PO2 62.8 mmHg (75.0-100.0); BG SAMPLE SITE RIGHT RADIAL; BG TIDAL VOLUME(mL) 500 mL; BG TOTAL HEMOGLOBIN 6.8 g/dL (12.0-18.0); BG VENT MODE VENT - A/C; BG VENT RATE 28 set
[2018-08-10] MEDS ORDERED: SODIUM BICARBONATE 8.4% 1 MEQ/ML 50ML SYR IV NR (12:30)
[2018-08-10 13:47] LABS: PHOSPHORUS 8.9 mg/dL (2.5-4.9)
[2018-08-10] MEDS: CEFTRIAXONE 1 G PREMIX 50 ML IV SCH (16:30)
[2018-08-11] VITALS (104 sets, daily range): BP systolic 46–152; BP diastolic 17–95
[2018-08-11] MEDS: DOPAMINE 400MG PREMIX 250 ML IV PRN ×2 (00:21→08:21)
[2018-08-11] MEDS: IPRATROPIUM/ALBUTEROL 0.5-3(2.5)MG/3ML NEB HHN SCH ×5 (02:10→19:43)
[2018-08-11] MEDS: VASOPRESSIN 10 UNIT in SODIUM CHLORIDE 0.9% 99.5 ML IV PRN ×6 (03:06→20:42)
[2018-08-11] MEDS: METRONIDAZOLE 500 MG PREMIX 100 ML IV SCH ×3 (03:08→17:57)
[2018-08-11] MEDS: LORAZEPAM 2MG/ML CPJ IV PRN (03:22)
[2018-08-11] MEDS: PHENYLEPHRINE 40 MG in DEXT 5% WATER 246 ML IV PRN ×2 (05:13→08:13)
[2018-08-11 05:57] LABS: BASOPHILS % 0.4 % (0.0-2.0); EOSINOPHILS % 0.3 % (0.0-5.0); LYMPHOCYTES % 9.4 % (20.0-50.0); MEAN CORPUSCULAR HEMOGLOBIN 31.8 pg (28.0-32.0); MEAN CORPUSCULAR VOLUME 94.3 fL (80.0-94.0); MEAN PLATELET VOLUME 8.7 fl (7.4-10.4); MONOCYTES % 3.7 % (2.0-8.0); NEUTROPHILS % 86.2 % (40.0-76.0); RED BLOOD CELL COUNT 2.18 mill/uL (4.7-6.1)
[2018-08-11 06:22] LABS: CHLORIDE 113 mEq/L (98-107)
[2018-08-11 06:59] LABS: HEMATOCRIT. 20.6 % (42.0-52.0); HEMOGLOBIN. 6.9 g/dL (14.0-18.0)
[2018-08-11 07:00] LABS: PLATELET 26 x1000/uL (130-400)
[2018-08-11] MEDS: OMEPRAZOLE 20MG CAPSULE EXTENDED RELEASE PO SCH (07:07)
[2018-08-11] MEDS: SEVELAMER CARBONATE 800 MG TABLET PO SCH (07:07)
[2018-08-11 07:31] LABS: BG CARBOXYHEMOGLOBIN 1.5 % (0.5-1.5); BG DEOXYHEMOGLOBIN 7.2 % (0.0-5.0); BG METHEMOGLOBIN 0.3 % (0.0-1.5); BG OXYGEN SATURATION 92.7 % (92.0-98.5); BG PH 7.115 (7.350-7.450); BG SAMPLE SITE RIGHT RADIAL; BG TIDAL VOLUME(mL) 500 mL; BG TOTAL HEMOGLOBIN 6.5 g/dL (12.0-18.0); BG VENT MODE VENT - A/C; BG VENT RATE 30 set
[2018-08-11] MEDS ORDERED: SODIUM BICARBONATE 8.4% 1 MEQ/ML 50ML SYR IV SCH ×2 (08:00→09:00)
[2018-08-11] MEDS: FOLIC ACID 1MG TABLET PO SCH (08:22)
[2018-08-11] MEDS: FUROSEMIDE 100MG/10ML VIAL IVP SCH (08:22)
[2018-08-11] MEDS: QUETIAPINE FUMARATE 25MG TABLET PO SCH (08:22)
[2018-08-11] MEDS: METOLAZONE 10MG TABLET PO SCH ×2 (08:22→17:57)
[2018-08-11] MEDS: RIFAXIMIN 550 MG TABLET PO SCH (08:22)
[2018-08-11] MEDS: THIAMINE HCL 100MG TABLET PO SCH (08:23)
[2018-08-11] MEDS: LEVETIRACETAM 500MG TABLET PO SCH ×2 (08:23→20:42)
[2018-08-11] MEDS: MULTIVITAMINS,THER W-MINERALS TABLET PO SCH (08:23)
[2018-08-11] MEDS ORDERED: SODIUM POLYSTYRENE SULFONATE 15 G/60 ML BOT PO SCH (09:00)
[2018-08-11] MEDS: SODIUM BICARBONATE 8.4% 1 MEQ/ML 50ML SYR IV SCH ×3 (10:21→21:29)
[2018-08-11] MEDS: LACTULOSE 20G/30ML UDC PO SCH (10:21)
[2018-08-11] MEDS: DOXYCYCLINE 100 MG in DEXT 5% WATER 100 ML IV SCH ×4 (12:03→23:14)
[2018-08-11] MEDS: NOREPINEPHRINE 32 MG in DEXT 5% WATER 468 ML IV PRN (12:04)
[2018-08-11] MEDS ORDERED: DILTIAZEM HCL 5MG/ML 5ML VIAL IV NR (14:45)
[2018-08-11] MEDS ORDERED: DILTIAZEM HCL 5MG/ML 5ML VIAL IV PRN (14:45)
[2018-08-11] MEDS: CEFTRIAXONE 1 G PREMIX 50 ML IV SCH (14:47)
[2018-08-11] MEDS: PHENYLEPHRINE 80 MG in DEXT 5% WATER 492 ML IV PRN ×2 (17:52→21:49)
[2018-08-12] VITALS (58 sets, daily range): BP systolic 0–133; BP diastolic 0–83
[2018-08-12] MEDS: VASOPRESSIN 10 UNIT in SODIUM CHLORIDE 0.9% 99.5 ML IV PRN ×3 (01:00→08:42)
[2018-08-12] MEDS ORDERED: AMIODARONE HCL 150 MG in DEXT 5% WATER 100 ML IV ONE (01:45)
[2018-08-12] MEDS ORDERED: AMIODARONE HCL 900 MG in DEXT 5% WATER 482 ML IV SCH (01:45)
[2018-08-12] MEDS: METRONIDAZOLE 500 MG PREMIX 100 ML IV SCH (02:00)
[2018-08-12] MEDS: IPRATROPIUM/ALBUTEROL 0.5-3(2.5)MG/3ML NEB HHN SCH ×2 (04:00→08:09)
[2018-08-12] MEDS ORDERED: AMIODARONE HCL 150 MG in DEXT 5% WATER 97 ML IV NR (05:15)
[2018-08-12] MEDS: SODIUM BICARBONATE 8.4% 1 MEQ/ML 50ML SYR IV SCH (05:30)
[2018-08-12] MEDS: OMEPRAZOLE 20MG CAPSULE EXTENDED RELEASE PO SCH (05:30)
[2018-08-12 07:08] LABS: RED BLOOD CELL COUNT 1.89 mill/uL (4.7-6.1)
[2018-08-12 07:09] LABS: HEMATOCRIT. 20.6 % (42.0-52.0); HEMOGLOBIN. 6.2 g/dL (14.0-18.0); MEAN CORPUSCULAR VOLUME 109.4 fL (80.0-94.0)
[2018-08-12 07:10] LABS: RED CELL DISTRIBUTION WIDTH 22.1 % (11.6-14.6)
[2018-08-12] MEDS: METOLAZONE 10MG TABLET PO SCH (07:15)
[2018-08-12 07:51] LABS: CHLORIDE 113 mEq/L (98-107)
[2018-08-12] MEDS ORDERED: SODIUM BICARBONATE 8.4% 1 MEQ/ML 50ML SYR IV NR (08:30)
[2018-08-12] MEDS: PHENYLEPHRINE 80 MG in DEXT 5% WATER 492 ML IV PRN (08:32)
[2018-08-12] MEDS: FOLIC ACID 1MG TABLET PO SCH (08:33)
[2018-08-12] MEDS: THIAMINE HCL 100MG TABLET PO SCH (08:34)
[2018-08-12] MEDS: QUETIAPINE FUMARATE 25MG TABLET PO SCH (08:34)
[2018-08-12] MEDS: MULTIVITAMINS,THER W-MINERALS TABLET PO SCH (08:34)
[2018-08-12] MEDS ORDERED: DEXTROSE 50% WATER 50ML SYRINGE IV NR (08:54)
[2018-08-12] MEDS: NOREPINEPHRINE 32 MG in DEXT 5% WATER 468 ML IV PRN (09:34)
[2018-08-12 09:48] LABS: NUCLEATED RED BLOOD CELLS 10 /100 WBC
[2018-08-12 09:49] LABS: PLATELET ESTIMATE MARKEDLY DECREASED
[2018-08-12 09:51] LABS: PLATELET 29 x1000/uL (130-400)
[2018-08-12 10:43] LABS: BG BASE EXCESS 3.3 mmol/L (-2.0-2.0); BG CARBOXYHEMOGLOBIN 1.3 % (0.5-1.5); BG FRACTION INSPIRED OXYGEN 100; BG METHEMOGLOBIN 0.1 % (0.0-1.5); BG OXYGEN SATURATION 74.6 % (92.0-98.5); BG OXYHEMOGLOBIN 73.6 % (94.0-97.0); BG PCO2 49.5 mmHg (35.0-45.0); BG PH 7.385 (7.350-7.450); BG PO2 45.5 mmHg (75.0-100.0); BG SAMPLE SITE RIGHT RADIAL; BG TIDAL VOLUME(mL) 500 mL; BG TOTAL HEMOGLOBIN 10.2 g/dL (12.0-18.0); BG VENT MODE VENT - A/C; BG VENT RATE 30 set
[2018-08-12] MEDS ORDERED: MORPHINE SULFATE 250 MG in DEXT 5% WATER 240 ML IV PRN (11:00)
[2018-08-12] MEDS ORDERED: LORAZEPAM 2MG/ML CPJ IV PRN (11:00)
== END 2018-08-12 16:01 | disposition expired | DRG 720 ==
LOC: ER 11:06 → CVICU 12:19 → EDBEDREQ 12:24 → EDBEDREQTM 12:24 → ENRESERV 12:31 → 5EST 07-29 12:00 → 6EST 07-30 18:36 → 8WST 08-01 10:22 → MICUSO 08-08 14:55
PROVIDERS: ADMIT Internal Medicine; ATTEND Internal Medicine
PROC: 5A1945Z Respiratory Ventilation, 24-96 Consecutive Hours (ICD-10-PCS; principal; 2018-07-18)
PROC: 30233L1 Transfusion of Nonautologous Fresh Plasma into Peripheral Vein, Percutaneous Approach (ICD-10-PCS; 2018-07-18)
PROC: 30233K1 Transfusion of Nonautologous Frozen Plasma into Peripheral Vein, Percutaneous Approach (ICD-10-PCS; 2018-07-18)
PROC: 0BH17EZ Insertion of Endotracheal Airway into Trachea, Via Natural or Artificial Opening (ICD-10-PCS; 2018-07-18)
PROC: 05H933Z Insertion of Infusion Device into Right Brachial Vein, Percutaneous Approach (ICD-10-PCS; 2018-07-19)
PROC: B54MZZA Ultrasonography of Right Upper Extremity Veins, Guidance (ICD-10-PCS; 2018-07-19)
PROC: 30233N1 Transfusion of Nonautologous Red Blood Cells into Peripheral Vein, Percutaneous Approach (ICD-10-PCS; 2018-07-19)
PROC: 30233R1 Transfusion of Nonautologous Platelets into Peripheral Vein, Percutaneous Approach (ICD-10-PCS; 2018-07-21)
PROC: 5A1955Z Respiratory Ventilation, Greater than 96 Consecutive Hours (ICD-10-PCS; 2018-08-08)
PROC: 5A12012 Performance of Cardiac Output, Single, Manual (ICD-10-PCS; 2018-08-08)
PROC: 0BH17EZ Insertion of Endotracheal Airway into Trachea, Via Natural or Artificial Opening (ICD-10-PCS; 2018-08-08)
PROC: 30233M1 Transfusion of Nonautologous Plasma Cryoprecipitate into Peripheral Vein, Percutaneous Approach (ICD-10-PCS; 2018-08-08)
PROC: 05HY33Z Insertion of Infusion Device into Upper Vein, Percutaneous Approach (ICD-10-PCS; 2018-08-08)
DX: A41.9 Sepsis, unspecified organism (principal); J96.01 Acute respiratory failure with hypoxia; R65.21 Severe sepsis with septic shock; J69.0 Pneumonitis due to inhalation of food and vomit; E43 Unspecified severe protein-calorie malnutrition; G92 Toxic encephalopathy; D61.818 Other pancytopenia; K85.90 Acute pancreatitis without necrosis or infection, unspecified; I46.9 Cardiac arrest, cause unspecified; L89.323 Pressure ulcer of left buttock, stage 3; Z66 Do not resuscitate; Z16.21 Resistance to vancomycin; K70.31 Alcoholic cirrhosis of liver with ascites; F41.9 Anxiety disorder, unspecified; K44.9 Diaphragmatic hernia without obstruction or gangrene; K70.40 Alcoholic hepatic failure without coma; E83.39 Other disorders of phosphorus metabolism; E87.0 Hyperosmolality and hypernatremia; S01.81XA Laceration without foreign body of other part of head, initial encounter; X58.XXXA Exposure to other specified factors, initial encounter; E83.42 Hypomagnesemia; E87.5 Hyperkalemia; F10.10 Alcohol abuse, uncomplicated; Z51.5 Encounter for palliative care; F31.9 Bipolar disorder, unspecified; T82.838A Hemorrhage due to vascular prosthetic devices, implants and grafts, initial encounter; Y84.1 Kidney dialysis as the cause of abnormal reaction of the patient, or of later complication, without mention of misadventure at the time of the procedure; I12.9 Hypertensive chronic kidney disease with stage 1 through stage 4 chronic kidney disease, or unspecified chronic kidney disease; D68.4 Acquired coagulation factor deficiency; L89.620 Pressure ulcer of left heel, unstageable; I85.10 Secondary esophageal varices without bleeding; L89.610 Pressure ulcer of right heel, unstageable; L84 Corns and callosities; D53.9 Nutritional anemia, unspecified; L89.210 Pressure ulcer of right hip, unstageable; B96.20 Unspecified Escherichia coli [E. coli] as the cause of diseases classified elsewhere; I47.1 Supraventricular tachycardia; I27.20 Pulmonary hypertension, unspecified; I48.0 Paroxysmal atrial fibrillation; J40 Bronchitis, not specified as acute or chronic; K31.89 Other diseases of stomach and duodenum; K76.6 Portal hypertension; K92.2 Gastrointestinal hemorrhage, unspecified; N39.0 Urinary tract infection, site not specified; N17.9 Acute kidney failure, unspecified; N18.9 Chronic kidney disease, unspecified; N48.89 Other specified disorders of penis; R31.0 Gross hematuria; Z86.73 Personal history of transient ischemic attack (TIA), and cerebral infarction without residual deficits; Z78.1 Physical restraint status; Z99.11 Dependence on respirator [ventilator] status; Z87.01 Personal history of pneumonia (recurrent); Z68.34 Body mass index [BMI] 34.0-34.9, adult; Y93.89 Activity, other specified; Y92.89 Other specified places as the place of occurrence of the external cause; Y99.8 Other external cause status
CPT/HCPCS: 31500; 36415; 36430; 36569; 36600; 70551; 71045; 76700; 76770; 76937; 80048; 80061; 80076; 80305; 80307; 80329; 82140; 82150; 82270; 82375; 82550; 82553; 82570; 82607; 82746; 82805; 82962; 83605; 83735; 83880; 83930; 84100; 84134; 84145; 84300; 84439; 84443; 84481; 84484; 85014; 85018; 85049; 85379; 85384; 86850; 86900; 86920; 86927; 87070; 87077; 87186; 92610; 92950; 93005; 93306; 93970; 94002; 94003; 94640; 96361; 96374; 97162; 99291; A6261; C1725; C1769; C9113; G0482; J0282; J0330; J0690; J0692; J0696; J1265; J1630; J1940; J1953; J2060; J2250; J2354; J2370; J2405; J2543; J3475; J3480; J3490; J7030; J7040; J7042; J7050; J7060; J7608; J7620; P9012; P9016; P9017; P9034; A4315